=== PATIENT | male | born 1945 | race Caucasian/White ===

== ENCOUNTER → 2019-07-07 14:12 | Outpatient (CLI) | payer MEDICARE, OTHER, SELFPAY ==
--- NOTE | ~2019-07-07 | CT_ITS ---
EXAMINATION: CT brain wo con DATE: 07/07/2019 14:53 INDICATION: Amnesia TECHNIQUE: Computed tomography (CT) of the head was performed without intravenous contrast. The mA wa s adjusted according to patient size. Iterative reconstruction technique was employed. Exam dose: 59 9.57 mGy-cm total exam DLP. COMPARISON: None FINDINGS: Vertebral and bilateral carotid siphon internal carotid artery calcifications are noted. There is nonspecific diminished attenuation of the cerebral white matter, likely due to chronic small vessel ischemic changes. Minimal benign basal ganglia calcification. No intracranial mass lesion or hemorrhage or cerebrovascular accident is evident. No midline shift or mass effect. There is moderate cerebral and cerebellar atrophy. No subdural or epidural hematoma. Included paranasal sinuses and mastoid air cells are normally developed and aerated. No fracture or bone destruction of the cranial vault. IMPRESSION: Cerebral atherosclerosis and chronic small vessel ischemic changes of the cerebral white matter Cerebral and cerebellar atrophy No acute intracranial finding Reviewed, dictated and finalized at [facility]. Reviewed, dictated and finalized at location B.
--- NOTE | ~2019-07-07 | CT_ITS ---
EXAMINATION: CT chest wo con DATE: 07/07/2019 14:53 INDICATION: Shortness of breath, suspect exposure to asbestos TECHNIQUE: Computed tomography (CT) of the chest was performed without intravenous contrast. The dose -length product (DLP) was 166.03 mGy-cm. Automated exposure control and iterative reconstruction tech I.Predictus were employed. COMPARISON: None FINDINGS: No calcified pleural plaques are identified, which are the typical manifestation of asbesto s exposure. There are 3 mm nodules of the right middle lobe and left upper lobe. The lungs are free o f acute opacities. There is no pleural effusion or pneumothorax. No pathologically enlarged thoracic lymph nodes are identified. The heart size is normal. There is moderate thoracic spondylosis. Punctat e calcifications in an otherwise normal spleen likely represent healed granulomatous disease. IMPRESSION: 1. No definite CT findings of as best as exposure. 2. Pulmonary nodules measuring up to 3 mm, likely old granulomatous disease. If the patient has no ri sk factors for malignancy, no further follow up is required. If there are risk factors for malignanc y (i.e., history of smoking, asbestos or radiation exposure), consider followup CT in 12 months. Reviewed, dictated and finalized at location A. IMPRESSION: 1. No definite CT findings of as best as exposure. 2. Pulmonary nodules measuring up to 3 mm, likely old granulomatous disease. If the patient has no risk factors for malignancy, no further follow up is requir ed. If there are risk factors for malignancy (i.e., history of smoking, asbest os or radiation exposure), consider followup CT in 12 months.
== END ==
PROVIDERS: PCP Internal Medicine; Visit Provider Internal Medicine
DX: R41.3 Other amnesia (principal); R91.8 Other nonspecific abnormal finding of lung field; I67.2 Cerebral atherosclerosis; G31.9 Degenerative disease of nervous system, unspecified; Z77.090 Contact with and (suspected) exposure to asbestos
CPT/HCPCS: 70450; 71250

== ENCOUNTER 2019-09-25 15:01 | Outpatient (CLI) | payer MEDICARE, OTHER, SELFPAY ==
--- NOTE | ~2019-09-25 | CT_ITS ---
EXAMINATION: CT soft tissue neck w con EXAM DATE: 09/25/2019 16:00 INDICATION: Left neck mass for 2-3 months. History of bladder cancer. Some TECHNIQUE: Spiral CT of the neck was performed following intravenous injection of 75 mL Omnipaque 350 . Axial, coronal and sagittal images were reviewed. The dose-length product (DLP) for this examinat ion was 31.31 mGy-cm. The exposure was tailored according to patient size (auto mA exposure control) , and iterative reconstruction (ASIR) was used as additional dose reduction technique. There is no p rior study for comparison. FINDINGS: There is abnormal appearance to the left tonsil, mass effect suspicious for malignancy. Reg ion measures 2.1 x 2.8 cm with involvement of the left fossa of Rosenmuller. There is peripherally en hancing mass just below the left mandibular angle, measuring approximately 2 x 3 cm, with poorly defi navi fat planes between it and the left submandibular gland and sternocleidomastoid muscle. Location s uggests most likely a pathologically enlarged left internal jugular chain lymph node. The thyroid gland is unremarkable. The submandibular and parotid glands are symmetric. The super ior mediastinum is unremarkable. The airway is unremarkable. Parapharyngeal and pre-glottic fat p lanes are preserved. There is bilateral carotid bulb arterial sclerosis with approximately 60% sten osis suspected. Less left carotid arterial sclerosis without stenosis. The orbits are unremarkable. Visualized sinuses and mastoid air cells are well aerated. There is advanced disc disease at C5-6 , 6-7, T2-3 and T3-4. There are no osteoblastic or osteolytic lesions identified. IMPRESSION: Necrotic left tonsillar mass and pathologically enlarged left internal jugular chain lymp h node. Could be oropharyngeal squamous cell cancer, metastatic disease. Lymphoma less likely. The phone number associated with this case was for the office of Dr. Cavazos. That office is presently closed. I left message for them to review this report and provided my phone number in case of any qu estions. Reviewed, dictated and finalized at location A. IMPRESSION: Necrotic left tonsillar mass and pathologically enlarged left inter nal jugular chain lymph node. Could be oropharyngeal squamous cell cancer, meta static disease. Lymphoma less likely. The phone number associated with this case was for the office of Dr. Cavazos. Th at office is presently closed. I left message for them to review this report an d provided my phone number in case of any questions.
[2019-09-25 15:45] LABS: Estimated Glomerular Filt Rate 50
== END 2019-09-25 15:02 | disposition home or self-care (01) ==
PROVIDERS: PCP Internal Medicine; Referring Provider Otolaryngology
DX: R22.1 Localized swelling, mass and lump, neck (principal); R59.9 Enlarged lymph nodes, unspecified
CPT/HCPCS: 36415; 70491; Q9967

== ENCOUNTER 2019-12-29 07:34 | Emergency (ER) | payer MEDICARE, OTHER, SELFPAY ==
[2019-12-29] VITALS (62 sets, daily range): BP systolic 115–193; BP diastolic 54–89; PULSE 58–82; RESP 17–34; TEMP 36.4; O2SAT 91–100
--- NOTE | ~2019-12-29 | CT_ITS ---
EXAMINATION: CT cervical spine wo con DATE: 12/29/2019 08:52 INDICATION: Neck pain post fall TECHNIQUE: Computed tomography (CT) of the cervical spine was performed without intravenous contrast. Automated exposure control and iterative reconstruction technique were employed. The dose-length pro duct was 344.66 mGy-cm. COMPARISON: Neck CT dated 09/25/2019 FINDINGS: 2 mm anterolisthesis C7 on T1. Vertebral body heights are normal. No fracture. Severe disc height los s with endplate remodeling at C5-C6. Moderate disc height loss at C4-C5 and C6-C7. Mild disc height l oss at C3-C4 and C7-T1. Again seen is a mass situated between the carotid bifurcation and the deep an terior margin of the sternocleidomastoid muscle, the margins of which are difficult to distinguish on the current noncontrast study which measures approximately 1.7 x 2.4 cm which is similar in size to the prior study. Minimal biapical pleural-parenchymal scarring. Partially visualized right internal j ugular central venous catheter. The following disc levels are specifically discussed: C2-C3: Disc is bulging. There is mild right and minimal left uncovertebral joint osteoarthritis. Ther e is mild right and mild to moderate left facet joint osteoarthritis. There is no neural foraminal st enosis. There is mild central canal stenosis. C3-C4: Disc is bulging. There is mild left and moderate right uncovertebral joint osteoarthritis. The re is moderate left and severe right facet joint osteoarthritis. There is mild left and mild to moder ate right neural foraminal stenosis. There is mild central canal stenosis. C4-C5: Disc is bulging. There is a right and severe left uncovertebral joint osteoarthritis. There is mild right and severe left facet joint osteoarthritis. There is mild right and moderate left neural foraminal stenosis. There is mild central canal stenosis. C5-C6: Posterior disc osteophyte complex. There is severe bilateral uncovertebral joint osteoarthriti s. There is mild left and moderate right facet joint osteoarthritis. There is mild left and moderate right neural foraminal stenosis. There is mild to moderate central canal stenosis. C6-C7: Disc is bulging. There is moderate right and severe left uncovertebral joint osteoarthritis. T here is mild bilateral facet joint osteoarthritis. There is mild right and moderate left neural ag inal stenosis. There is mild central canal stenosis. C7-T1: Disc is bulging. There is minimal bilateral uncovertebral joint osteoarthritis. There is sever e bilateral facet joint osteoarthritis. There is mild bilateral neural foraminal stenosis. There is n o central canal stenosis. IMPRESSION: 1. Severe cervical spondylosis. No acute osseous abnormality. 2. No definitive interval change in an approximately 1.7 x 2.4 cm mass between the carotid bifurcatio n and the sternocleidomastoid muscle, likely an enlarged lymph node which could be reactive, metastat ic or lymphoma. Correlate with intervening clinical history. Reviewed, dictated and finalized at location A. IMPRESSION: 1. Severe cervical spondylosis. No acute osseous abnormality. 2. No definitive interval change in an approximately 1.7 x 2.4 cm mass between the carotid bifurcation and the sternocleidomastoid muscle, likely an enlarged lymph node which could be reactive, metastatic or lymphoma. Correlate with inte rvening clinical history.
--- NOTE | ~2019-12-29 | CT_ITS ---
EXAMINATION: CT brain wo con DATE: 12/29/2019 08:52 INDICATION: Syncopal episode. Fall. TECHNIQUE: Computed tomography (CT) of the head was performed without intravenous contrast. Sagittal and coronal reconstructions were performed. The mA was adjusted according to patient size. Iterative reconstruction technique was employed. The dose-length product was 605.33 mGy-cm. COMPARISON: head CT dated 07/07/2019 FINDINGS: No fracture. No acute intracranial hemorrhage, acute infarction or abnormal extra axial fluid collect ion. There is mild scattered white matter hypoattenuation consistent with chronic small vessel ischem ic disease. Ventricles are normal and symmetric. No mass/mass effect. The orbits, paranasal sinuses and mastoid air cells are normal. Intracranial calcified cerebral atherosclerosis is noted. IMPRESSION: 1. No fracture or acute intracranial process. 2. Mild scattered white matter hypoattenuation consistent with chronic small vessel ischemic disease. Reviewed, dictated and finalized at location A. IMPRESSION: 1. No fracture or acute intracranial process. 2. Mild scattered white matter hypoattenuation consistent with chronic small ve ssel ischemic disease.
--- NOTE | ~2019-12-29 | XR_ITS ---
EXAMINATION: XR chest 1V portable 12/29/2019 08:40 INDICATION: Weakness PROCEDURE: AP portable chest COMPARISON: No prior studies for comparison. FINDINGS: The lungs are clear. There is a central catheter tip in the SVC. The cardiomediastinal silh ouette is within normal limits. There are no pleural effusions. There is no pneumothorax suspected. IMPRESSION: 1: NO ACUTE CARDIOPULMONARY DISEASE. Reviewed, dictated and finalized at location A.
--- NOTE | ~2019-12-29 | XR_ITS ---
EXAMINATION: XR ankle RT min 3V INDICATION: Right ankle pain, initial encounter TECHNIQUE: Four views of the left ankle are obtained. COMPARISON: None available FINDINGS: There is an acute, traumatic, closed, oblique fracture of the distal fibula which extends t o the level of the tibial plafond. There is a transverse fracture at the tip of the medial malleolus. Soft tissue swelling surrounds the ankle. No additional acute osseous abnormality is identified. IMPRESSION: 1. Oblique fracture of the distal fibula extending to the level of the tibial plafond. 2. Avulsion fracture of the medial malleolus. Reviewed, dictated and finalized at location B. IMPRESSION: 1. Oblique fracture of the distal fibula extending to the level of the tibial p cipriano. 2. Avulsion fracture of the medial malleolus.
--- NOTE | 2019-12-29 07:49 | ECG_ITS ---
Measurements Intervals [place] Rate: 67 P: 76 NE: 316 QRS: -40 QRSD: 116 T: 88 QT: 435 QTc: 460 Interpretive Statements SINUS RHYTHM WITH FIRST DEGREE AV BLOCK VENTRICULAR BIGEMINY LEFT AXIS DEVIATION INCOMPLETE RIGHT BUNDLE BRANCH BLOCK CANNOT RULE OUT SEPTAL INFARCT, AGE INDETERMINATE ST-T WAVE ABNORMALITY IN HIGH LATERAL LEADS- CONSIDER ISCHEMIA BASELINE ARTIFACT- I, II, III, AVR, AVF ABNORMAL ECG Electronically Signed On 12-29-2019 8:21:16 CDT by Francois Campo D.O.
--- NOTE | 2019-12-29 08:09 | PC.NURSE ---
per pts pt fell backwards this am striking his head on the ground. denies loc. pt now c/o some neck pain. denies use of blood thinners. states takes asa daily. states has history of throat and tongue ca. has chemo every 2 weeks and radiation daily.
[2019-12-29 08:22] LABS: Alveolar/Arterial O2 Gradient 25.8 mmHg; Base Excess ABG -0.4 mEq/l (+/-2.0); Carboxyhemoglobin 0.5 % THb (0-2.0); Device ROOM AIR; Fractional Inspired Oxygen 21 %; HCO3 ABG 21.6 mEq/l (22.0-26.0); Methemoglobin ABG 0.1 %THb (0-1.5); Oxygen Content ABG 18.4 %vol (16.0-22.0); Oxygen Saturation ABG 97.6 % (95.0-100.0); Oxyhemoglobin 96.4 % THb (90.0-100.0); PCO2 ABG 28.3 mmHg (35.0-45.0); PO2 FiO2 Ratio Arterial Blood 4.29 %; Site Drawn LEFT BRACHIAL; Total Hemoglobin 13.5 g/dL (12.0-18.0)
--- NOTE | 2019-12-29 08:28 | ED.SYNCOPE ---
HPI - Syncope General Chief Complaint: Syncope Stated Complaint: FALL/WEAKNESS Time Seen by Provider: 12/29/19 08:16 Source: patient and family Mode of arrival: EMS History of Present Illness HPI narrative: This patient is a 74 year old male with throat CA, DM, CAD s/p stents who presents for evaluation of syncopal episode. Patient states he was going to the restroom, and then he woke up on the floor. He does not know how he got on the floor. He states he woke up diaphoretic and nauseous. His states he hit the back of his head hard. PAtient complains or right side neck pain. He denies focal extremity weakness. HE denies chest pain or sob. He also denies rib pain . He takes aspirin 325 mg Patient is currently receiving chemotherapy for throat cancer at [facility]. His last chemo was on Saturday. complaint: loss of consciousness Related Data Home Medications Medication Instructions Recorded Confirmed alpha lipoic acid 600 mg capsule 600 mg PO ONCE 05/04/19 11/04/19 aspirin 325 mg tablet 325 mg PO DAILY 05/04/19 11/04/19 mecobalamin (vitamin B12) 1,000 1,000 mcg SUBLINGUAL DAILY 05/04/19 11/04/19 mcg disintegrating tablet,sublingual omega-3 fatty acids 1,000 mg 1,000 mg PO BID 09/07/19 11/04/19 capsule Allergies Allergy/AdvReac Type Severity Reaction Status Date / Time atorvastatin AdvReac Intermediate Other Verified 12/29/19 07:41 isosorbide AdvReac Intermediate Unknown Verified 12/29/19 07:41 Review of Systems Review of Systems: All systems reviewed & are unremarkable except as noted in HPI and below Constitutional: Constitutional: Denies chills and Denies fever(s) Cardiovascular: Cardiovascular: Denies chest pain Respiratory: Respiratory: Denies cough and Denies dyspnea Gastrointestinal: Gastrointestinal: Denies abdominal pain, Denies diarrhea, Reports nausea and Denies vomiting Neurologic: Denies vertigo, Denies dizziness, Denies headache(s) and Denies numbness PMFSH Past Medical History Medical History Abdominal bloating Abnormal finding of blood chemistry Asbestos exposure ASHD (arteriosclerotic heart disease) >4 METs BMI 26.0-26.9,adult Chronic fatigue Chronic sore throat Colon cancer screening Diabetes mellitus type 2, insulin dependent Dysphagia Elevated PSA Encounter for Medicare annual wellness exam Encounter for routine adult health examination without abnormal findings Hearing loss Hyperlipidemia Hypersomnolence Inguinal hernia Memory impairment On fci drug therapy Peripheral neuropathy PVD (peripheral vascular disease) Squamous cell carcinoma of head and neck Thyroid nodule Surgical History Surgical History History of coronary artery stent placement x6, last one in 2017 Social History Social History Smoking status: Never smoker Second hand tobacco smoke exposure: No Alcohol intake: current Gender identity (if verbalized by the patient): Male Exam Const: General: alert and ill appearing Orientation/consciousness: patient oriented x3 HENMT: Head: normocephalic and atraumatic Mouth: Yes moist mucous membranes, No trismus and No restricted motion Throat: posterior oropharynx abnormal Eyes: Pupils: Equal, round and reactive pupils present EOM: EOMs intact bilaterally Chest: Chest palpation & inspection: normal inspection of the chest Resp: Effort & Inspection: normal respiratory effort and no retractions Auscultation: clear to auscultation bilaterally Cardio: Rate: regular rate Rhythm: regular rhythm Heart sounds: no murmurs GI: GI Palp: Yes Soft to palpation, No Tenderness to palpation present (GI) and No Guarding due to palpation present (GI) Auscultation: normal bowel sounds Skin: General skin exam: normal color Rashes: no rashes Neuro: General: fanta
[2019-12-29 08:29] LABS: Basophils Percent Auto 0.3 % (0.2-1.2); Eosinophils Absolute Auto 0.1 K/mm3 (0-0.3); Eosinophils Percent Auto 2.2 % (0-4.4); Hematocrit 38.3 % (42.0-52.0); Immature Granulocyte Absolute 0.01 K/mm3 (0.00-0.031); Immature Granulocyte Percent A 0.3 % (0-0.5); Lymphocytes Absolute Auto 0.37 K/mm3 (0.9-3.2); Lymphocytes Percent Auto 11.7 % (18.3-44.2); Mean Corpuscular HGB Conc 33.9 g/dl (32-36); Mean Corpuscular Hemoglobin 29.8 pg (26-34); Mean Corpuscular Volume 87.8 fl (80-100); Mean Platelet Volume 9.5 fl (7.4-10.4); Monocytes Absolute Auto 0.4 K/mm3 (0.1-0.6); Monocytes Percent Auto 12.4 % (2.6-8.5); Neutrophils Absolute Auto 2.3 K/mm3 (1.3-6.7); Neutrophils Percent Auto 73.1 % (45.5-73.1); Platelet Count Result 151 k/mm3 (150-375); Red Blood Count 4.36 M/mm3 (4.6-6.20); Red Cell Distribution Width 12.8 % (11.5-14.5); White Blood Count 3.2 K/mm3 (4.5-10.0)
[2019-12-29 08:39] LABS: Prothrombin Time 12.6 Seconds (11.1-14.7)
[2019-12-29 08:40] LABS: Lactic Acid Reflex 2.2 mmol/L (0.7-2.1); Partial Thromboplastin Time 23.3 SECONDS (22.3-36.8)
[2019-12-29] MEDS: LACTATED RINGERS 1,000 ML 999 ML IV CONT ×2 (08:41→09:59)
[2019-12-29] MEDS: ONDANSETRON INJ 4 MG/2 ML VIAL IV PUSH (08:41)
[2019-12-29 08:42] LABS: Alanine Aminotransferase 20 U/L (4-50); Albumin Level 3.9 g/dL (3.5-5.1); Alkaline Phosphatase 85 U/L (38-126); Anion Gap 11 mmol/L (8-16); Aspartate Amino Transferase 22 U/L (17-59); Bilirubin,Total 0.5 mg/dL (0.2-1.3); Blood Urea Nitrogen 28 mg/dL (9-20); Calcium 9.2 mg/dL (8.4-10.2); Carbon Dioxide 22 mmol/L (22-30); Chloride 102 mmol/L (98-107); Estimated CRCL calculation 54 ml/min; Estimated Glomerular Filt Rate 59; Glucose 180 mg/dL (75-110); Magnesium 2.1 mg/dL (1.6-2.3); Potassium 4.3 mmol/L (3.4-5.0); Sodium 135 mmol/L (137-145)
[2019-12-29 10:46] LABS: Add Urine Microscopic? YES; Appearance Urine Clear (Clear); Bilirubin Urine Negative (Negative); Blood Urine Negative (Negative); Color Urine Straw (Yellow); Glucose Urine UA 3+ mg/dL (Negative); Ketones Urine 1+ mg/dL (Negative); Leukocyte Esterase Ur Negative LEU/UL (Negative); Mucus Urine Rare /lpf; Nitrate Urine Negative (Negative); Protein Urine Negative (Negative); RBC Urine 0-2 /hpf (0-2); Specific Grav Ur 1.025 (1.001-1.035); Urobilinogen Urine Negative mg/dL (<2.0); WBC Urine 0-3 /hpf
--- NOTE | 2019-12-29 11:17 | PC.NURSE ---
report given to yesika jones by eduardo
[2019-12-29 11:26] LABS: Reflex Lactic Acid Yes or No Add Lactic
--- NOTE | 2019-12-29 12:02 | PC.NURSE ---
Per ERP Dr. Brantley Redraw lactic not needed.
--- NOTE | 2019-12-29 13:39 | PC.NURSE ---
erp dr paniagua at bedside for assessment of splint application .
--- NOTE | 2019-12-29 14:35 | PC.NURSE ---
crutches brought up from central supply. pt educated on crutches and road tested. ERP Dr. Brantley notified.
== END 2019-12-29 15:16 | disposition home or self-care (01) ==
PROVIDERS: Emergency Provider General Practice; PCP Internal Medicine
DX: R55 Syncope and collapse (principal); S82.831A Other fracture of upper and lower end of right fibula, initial encounter for closed fracture; M47.812 Spondylosis without myelopathy or radiculopathy, cervical region; R53.82 Chronic fatigue, unspecified; E11.9 Type 2 diabetes mellitus without complications; Z79.4 Long term (current) use of insulin; E78.5 Hyperlipidemia, unspecified; W19.XXXA Unspecified fall, initial encounter
CPT/HCPCS: 29515; 36415; 36600; 70450; 71045; 72125; 73610; 80053; 81001; 82375; 82805; 83050; 83605; 83735; 85025; 85610; 85730; 93005; 96361; 96374; 99284; J2405; J7120

== ENCOUNTER → 2020-08-05 12:57 | Outpatient (CLI) | payer MEDICARE, OTHER, SELFPAY ==
--- NOTE | ~2020-08-05 | CT_ITS ---
EXAMINATION: CT abdomen pelvis wo/w con DATE: 08/05/2020 13:45 INDICATION: Gross hematuria TECHNIQUE: Computed tomography (CT) of the abdomen and pelvis was performed without and subsequently with 130 cc Omnipaque 350 intravenous contrast. Automated exposure control and iterative reconstructi on technique were employed. Exam dose: 873.39 mGy-cm total exam DLP. COMPARISON: 04/23/2019 CT abdomen pelvis with IV contrast material FINDINGS: The lung bases are clear of infiltrate or consolidation. Normal heart size. No pericardial or pleural effusion. The gallbladder is present. No bile duct or pancreatic duct dilatation. Calcified hepatic and splenic granulomas, consistent with old granulomatous disease. No hepatic, sple diana, pancreatic, adrenal or right renal space-occupying mass lesion is evident. No urinary tract calc ulus or hydroureteronephrosis. Posterolateral mid left renal 6 mm cortical cyst. 1 cm lower pole left renal cyst. Approximately 2.2 cm hypoenhancing anterior lower pole left renal mass lesion with central lucency lang ggesting central necrosis, suspicious for left lower pole hypernephroma. Differential diagnosis inclu misty oncocytoma. Prominent prostatomegaly. There is moderate diffuse bladder wall thickening likely secondary to bladd er outlet obstruction as result of the prostatic enlargement. There is atherosclerotic calcification the abdominal aorta and branches but no abdominal aortic aneur ysm. No intraperitoneal or retroperitoneal or pelvic mass lesion or adenopathy or ascites. Normal appendix. Mild diverticulosis of the sigmoid colon; no CT evidence of diverticulitis. No bowel obstruction, bow el wall thickening, pneumatosis or intraperitoneal free air. Bilateral vas deferens calcifications, suggesting diabetes. Small fat-containing left inguinal hernia. Degenerative changes of the lower thoracic and lumbar spine including severe degenerative disc diseas e at L3-4, L4-5, L5-S1. No suspicious osteolytic or osteoblastic lesions are noted. IMPRESSION: 2.2 cm likely hypernephroma of the lower pole of the left kidney; differential diagnosis includes oncocytoma 6 mm and 1 cm left renal cysts Bilateral vas deferens calcifications, suggesting diabetes Prominent prostatomegaly with moderate bladder wall thickening suggesting bladder outlet obstruction Mild diverticulosis of the sigmoid colon; no CT evidence of diverticulitis Reviewed, dictated and finalized at Location A. Reviewed, dictated and finalized at location A. IMPRESSION: 2.2 cm likely hypernephroma of the lower pole of the left kidney; differential diagnosis includes oncocytoma 6 mm and 1 cm left renal cysts Bilateral vas deferens calcifications, suggesting diabetes Prominent prostatomegaly with moderate bladder wall thickening suggesting bladd er outlet obstruction Mild diverticulosis of the sigmoid colon; no CT evidence of diverticulitis
[2020-08-05 13:22] LABS: Estimated Glomerular Filt Rate > 60
== END ==
PROVIDERS: PCP Internal Medicine; Visit Provider Urology
DX: R31.0 Gross hematuria (principal); N28.1 Cyst of kidney, acquired; N50.89 Other specified disorders of the male genital organs; N40.0 Benign prostatic hyperplasia without lower urinary tract symptoms; K57.30 Diverticulosis of large intestine without perforation or abscess without bleeding
CPT/HCPCS: 74178; Q9967

== ENCOUNTER → 2020-11-01 11:31 | Outpatient (CLI) | payer MEDICARE, OTHER, SELFPAY ==
--- NOTE | ~2020-11-01 | XR_ITS ---
EXAMINATION: XR mandible min 4V EXAM DATE: 11/01/2020 13:15 INDICATION: R68.84 - Jaw pain, left side. States tonsil cancer history. TECHNIQUE: Mandible frontal, frontal with angulation, bilateral lateral with tilt projections There is no prior study for comparison. FINDINGS: Mandibular condyles appears to be normally positioned. There are no acute fractures or disl ocations identified. There is no subcutaneous gas. The soft tissue is unremarkable. There are no radiopaque foreign bodies. There are no bony erosions identified. IMPRESSION: 1. Unremarkable XR mandible min 4V exam. Reviewed, dictated and finalized at location A.
== END ==
PROVIDERS: PCP Internal Medicine; Visit Provider Internal Medicine
DX: R68.84 Jaw pain (principal)
CPT/HCPCS: 70110

== ENCOUNTER → 2021-08-22 09:26 | Outpatient (CLI) | payer MEDICARE, OTHER, SELFPAY ==
[2021-08-22 13:11] LABS: SARS-CoV-2 RNA PCR Negative
== END ==
PROVIDERS: PCP Internal Medicine; Visit Provider Internal Medicine
DX: R05.9 Cough, unspecified (principal); Z20.822 Contact with and (suspected) exposure to COVID-19
CPT/HCPCS: C9803; U0003; U0005

== ENCOUNTER 2022-05-04 10:57 | Outpatient (CLI) | payer MEDICARE, SELFPAY | END 2022-05-04 10:58 | disposition home or self-care (01) | LOC: ANHAUDASC 10:58 | PROVIDERS: PCP Internal Medicine; Visit Provider Internal Medicine | DX: H90.3 Sensorineural hearing loss, bilateral (principal) | CPT/HCPCS: 92557; 92567 ==

== ENCOUNTER → 2022-08-29 12:43 | Outpatient (CLI) | payer MEDICARE, OTHER, SELFPAY ==
--- NOTE | ~2022-08-29 | US_ITS ---
EXAMINATION: US carotid duplex BI DATE: 08/29/2022 13:11 INDICATION: Atherosclerosis. TECHNIQUE: Grayscale, color Doppler, and pulsed Doppler images of the cervical carotid arteries were obtained. The degree of vessel stenosis is placed in one of the following categories: normal, <50%, 5 0-69%, >=70% but less than near-occlusion, near-occlusion, or total occlusion. Note that percent sten osis relative to normal distal artery lumen diameter is indirectly measured from velocity measurement s as described by Moody, et al. Radiology 2003; 229:340-346. Notes: Normal: Peak systolic velocity <125 centimeters/sec and no plaque <50%. Peak systolic velocity <125 ( EDV <40; ICA/CCA PSV ratio <2.0; used these factors only a tandem lesions or low cardiac output or co ntralateral disease) 50-69 %: PSV 125-230 (EDV 40-100; ratio 2-4) >= 70% but less than near occlusion: PSV greater than 230 (EDV > 100; ratio> 4.0) Near Occlusion: PSV that is variable; markedly narrowed lumen Occlusion: Absent flow on color/spectral Doppler and no lumen on mclean scale. COMPARISON: None. FINDINGS: RIGHT: The right common carotid artery (CCA) peak systolic velocity (PSV) is 106 cm/s. The right internal ca rotid artery (ICA) PSV is 229 cm/s. The right ICA end-diastolic velocity (EDV) is 58 cm/s. The right ICA/CCA PSV ratio is 2.2. The external carotid artery (ECA) PSV is 173 cm/s. There is antegrade flow in the right vertebral artery. LEFT: The left CCA PSV is 137 cm/s. The left ICA PSV is 111 cm/s. The left ICA EDV is 29 cm/s. The left ICA /CCA PSV ratio is 0.8. The ECA PSV is 138 cm/s. There is antegrade flow in the left vertebral artery . IMPRESSION: 1. Less than 50% stenosis in the right internal carotid artery by sonographic criteria. 2. 50-69% stenosis in the left internal carotid artery by sonographic criteria. Reviewed, dictated and finalized at location B. IMPRESSION: 1. Less than 50% stenosis in the right internal carotid artery by sonographic c riteria. 2. 50-69% stenosis in the left internal carotid artery by sonographic criteria.
== END ==
PROVIDERS: PCP Internal Medicine; Visit Provider Internal Medicine
DX: Z09 Encounter for follow-up examination after completed treatment for conditions other than malignant neoplasm (principal); I25.10 Atherosclerotic heart disease of native coronary artery without angina pectoris; I65.23 Occlusion and stenosis of bilateral carotid arteries
CPT/HCPCS: 93880

== ENCOUNTER 2024-02-11 23:50 | Emergency (ER) | payer MEDICARE, SELFPAY ==
--- NOTE | ~2024-02-11 | CT_ITS ---
EXAMINATION: CTA chest abdomen pelvis DATE: 02/12/2024 00:54 INDICATION: Chest pain. TECHNIQUE: Computed tomographic angiography (CTA) of the chest, abdomen, and pelvis was performed wit h 100 mL Omnipaque-350 intravenous contrast. Automated exposure control and iterative reconstruction technique were employed. The dose-length product was 649.02 mGy-cm. Maximum intensity projection 3D-r econstructions of the aorta and other arteries were constructed by the technologist on a separate wor kstation. COMPARISON: CT abdomen and pelvis 08/05/2020 FINDINGS: CHEST CTA: The lungs demonstrate minimal atelectasis. No pleural effusion. The heart size is normal. There are c oronary artery calcifications. No pericardial effusion. Aortic atherosclerosis is noted. No aneurysm. There is severe cervical and thoracic spondylosis. There is mild chronic anterior wedging of multipl e vertebral bodies. ABDOMEN AND PELVIS CTA: The liver, gallbladder, pancreas, and adrenal glands are normal. Calcifications in the spleen are con sistent with old granulomatous disease. There is cortical thinning of the kidneys. There is a 3.3 cm enhancing mass in left kidney that measured 2.2 cm on 08/05/2020. The prostate is moderately enlarged. There is a left inguinal hernia containing nonobstructed small bowel. There is diverticulosis of the colon without evidence of diverticulitis. There are no dilated loops of bowel. The appendix is martin l. There are no pathologically enlarged lymph nodes. There is no free intraperitoneal fluid. There is calcified atherosclerosis of the aorta and many of the other arteries. There is moderate stenosis of left common femoral artery. There is severe lumbar spondylosis. IMPRESSION: 1. 3.3 cm enhancing mass in left kidney that measured 2.2 cm on 08/05/2020, consistent with renal cell carcinoma. Reviewed, dictated and finalized at location A. IMPRESSION: 1. 3.3 cm enhancing mass in left kidney that measured 2.2 cm on 08/05/2020, cons istent with renal cell carcinoma.
--- NOTE | ~2024-02-11 | XR_ITS ---
EXAMINATION: XR chest 1V portable DATE: 02/12/2024 00:14 INDICATION: Chest and right upper back pain TECHNIQUE: frontal view of the chest was obtained. COMPARISON: Chest radiograph dated 12/29/19 FINDINGS: The lungs remain clear with no focal airspace opacities, pulmonary edema, pleural effusion or pneumot horax. The cardiomediastinal silhouette is normal. Visualized bones and soft tissues are unremarkable . IMPRESSION: 1. No acute cardiopulmonary disease. Reviewed, dictated and finalized at location A.
--- NOTE | 2024-02-11 23:51 | ECG_ITS ---
Test Date: 2024-02-11 23:56:07 Measurements Intervals [place] Rate: 78 P: 0 HI: 0 QRS: -38 QRSD: 113 T: 97 QT: 357 QTc: 407 Interpretive Statements ATRIAL FLUTTER WITH VARIABLE VENTRICULAR RESPONSE LEFT AXIS DEVIATION [QRS AXIS < -30] INCOMPLETE RIGHT BUNDLE BRANCH BLOCK [90+ ms QRS DURATION, TERMINAL R IN V1/V2, 40+ ms S IN I/aVL/V4/V5/V6] PROBABLE SEPTAL MYOCARDIAL INFARCTION , OF INDETERMINATE AGE [35 ms Q WAVE IN V1/V2] MODERATE T-WAVE ABNORMALITY, CONSIDER LATERAL ISCHEMIA [-0.1+ mV T-WAVE IN I/aVL/V5/V6] ABNORMAL ECG No previous ECG available for comparison Electronically Signed On 02-12-2024 10:20:39 CDT by Yasmany Diaz M.D.
[2024-02-11 23:53] VITALS: BP 166/87; PULSE 77; RESP 11; TEMP 36.3; O2SAT 100
[2024-02-11 23:59] VITALS: PULSE 72
[2024-02-12 00:01] VITALS: O2SAT 100
[2024-02-12 00:03] VITALS: BP 157/86; BP 166/87; PULSE 68; PULSE 77; RESP 11; TEMP 36.3; O2SAT 100
--- NOTE | 2024-02-12 00:06 | ED.CHESTPAIN ---
HPI - Chest Pain General Chief Complaint: Chest Pain Stated Complaint: chest pain Time Seen by Provider: 02/11/24 23:53 History of Present Illness HPI narrative: Patient is a 78-year-old male who presents to the emergency department this evening complaining of right-sided upper back pain. Patient states that the pain started a few days ago and has not improved despite him taking ibuprofen. He states that the pain sometimes does radiate to his right arm. Patient admits to history of cardiovascular disease and states that he has had sick stents placed. He is currently denying any chest pain or shortness of breath, denies any nausea vomiting or abdominal pain and denies any dysuria or hematuria. Patient also denies any recent falls or trauma and denies any neck pain. No additional symptoms or concerns at this time. Related Data Home Medications Medication Instructions Recorded Confirmed mecobalamin (vitamin B12) 1,000 1,000 mcg sublingual DAILY 05/04/19 01/08/24 mcg disintegrating tablet,sublingual omega-3 fatty acids 1,000 mg 1,000 mg PO BID 09/07/19 01/08/24 capsule (Fish Oil Concentrate) aspirin 325 mg tablet 325 mg PO DAILY 10/22/22 01/08/24 ibuprofen 200 mg capsule 200 mg PO BID PRN 05/23/23 01/08/24 cholecalciferol (vitamin D3) 50 4,000 unit PO DAILY 01/31/24 mcg (2,000 unit) capsule Allergies Allergy/AdvReac Type Severity Reaction Status Date / Time atorvastatin AdvReac Intermediate Other Verified 02/11/24 23:59 isosorbide AdvReac Intermediate Unknown Verified 02/11/24 23:59 Review of Systems Review of Systems: All systems are reviewed and are negative unless stated otherwise in the HPI. [facility] Past Medical History Medical History Abdominal bloating Abnormal finding of blood chemistry Ankle fracture, right Anxiety and depression Asbestos exposure ASHD (arteriosclerotic heart disease) >4 METs Bilateral cataracts BMI 21.0-21.9, adult BMI 22.0-22.9, adult BMI 23.0-23.9, adult BMI 24.0-24.9, adult BMI 26.0-26.9,adult Borderline abnormal TFTs Chronic fatigue Chronic sore throat CKD (chronic kidney disease), stage II Colon cancer screening Cough COVID-19 vaccine series completed Depression Diabetes mellitus type 2, insulin dependent DJD (degenerative joint disease) Dysphagia Elevated homocysteine Elevated PSA Encounter for Medicare annual wellness exam Encounter for routine adult health examination without abnormal findings Follow up Grief Gross hematuria Hearing loss History of cataract History of head and neck cancer Hx of bladder cancer Hyperlipidemia Hypersomnolence Inguinal hernia Jaw pain alf (current) use of insulin Loss of appetite Mandibular pain Mastodynia of left breast Memory impairment Nocturia 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 Onychomycosis Oral lesion Osteonecrosis of jaw Peripheral neuropathy PTSD (post-traumatic stress disorder) PVD (peripheral vascular disease) Renal mass Squamous cell carcinoma of head and neck Thyroid nodule Vitamin D deficiency Surgical History Surgical History History of coronary artery stent placement x6, last one in 2017 S/P cataract surgery Family History Family History Father Family history of lung disease Mother Family history of malignant neoplasm of gastrointestinal tract Social History Social History Smoking status: Never smoker Second hand tobacco smoke exposure: No Alcohol intake: current Lack of Transportation: No Lack of Food: Never True Current Housing: I Have Housing Concerned About Future Housing: No Difficulty Paying Gas/Electric Bills: No Difficulty Paying for Meds: No Currently Unemployed: No Education: High School Diploma/GED Living arrangements: alone Gender ident
[2024-02-12 00:08] LABS: Basophils Percent Auto 0.6 % (0.2-1.2); Eosinophils Absolute Auto 0.1 K/mm3 (0-0.3); Eosinophils Percent Auto 1.9 % (0-4.4); Hematocrit 43.1 % (42.0-52.0); Hemoglobin 14.5 g/dL (14.0-18.0); Immature Granulocyte Absolute 0.02 K/mm3 (0.00-0.031); Immature Granulocyte Percent A 0.3 % (0-0.5); Lymphocytes Absolute Auto 0.85 K/mm3 (0.9-3.2); Lymphocytes Percent Auto 12.4 % (18.3-44.2); Mean Corpuscular HGB Conc 33.6 g/dl (32-36); Mean Corpuscular Hemoglobin 31.5 pg (26-34); Mean Corpuscular Volume 93.7 fl (80-100); Mean Platelet Volume 10.6 fl (7.4-10.4); Monocytes Percent Auto 15.1 % (2.6-8.5); Neutrophils Absolute Auto 4.8 K/mm3 (1.3-6.7); Neutrophils Percent Auto 69.7 % (45.5-73.1); Platelet Count Result 187 k/mm3 (150-375); Red Cell Distribution Width 13.2 % (11.5-14.5); White Blood Count 6.8 K/mm3 (4.5-10.0)
[2024-02-12 00:18] LABS: INR 0.9; Prothrombin Time 12.6 Seconds (11.1-14.7)
[2024-02-12 00:19] LABS: Alanine Aminotransferase 21 U/L (6-50); Albumin Level 4.7 g/dL (3.5-5.1); Alkaline Phosphatase 91 U/L (38-126); Anion Gap 11 mmol/L (4-12); Aspartate Amino Transferase 29 U/L (17-59); Bilirubin,Total 0.8 mg/dL (0.2-1.3); Blood Urea Nitrogen 31 mg/dL (9-20); Calcium 9.6 mg/dL (8.4-10.2); Carbon Dioxide 22 mmol/L (22-30); Chloride 103 mmol/L (98-107); Estimated CRCL calculation 50 ml/min; Estimated Glomerular Filt Rate 59; Glucose 174 mg/dL (65-110); Lipase 819 U/L (23-300); Partial Thromboplastin Time 27.8 Seconds (22.3-36.8); Potassium 4.2 mmol/L (3.4-5.0); Sodium 136 mmol/L (137-145)
[2024-02-12 00:31] LABS: Troponin I < 0.012 ng/mL (0.000-0.034)
[2024-02-12] MEDS: MORPHINE SULFATE (*CRX) 4 MG/ML INJ 2 MG IV PUSH (01:05)
[2024-02-12] MEDS: ONDANSETRON INJ 4 MG/2 ML VIAL IV PUSH (01:05)
--- NOTE | 2024-02-12 01:06 | PC.NURSE ---
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
[2024-02-12 02:08] VITALS: BP 147/75; PULSE 63; RESP 17; O2SAT 98
[2024-02-12 03:17] LABS: Troponin I < 0.012 ng/mL (0.000-0.034)
[2024-02-12 04:10] VITALS: BP 141/75; PULSE 67; RESP 16; TEMP 36.9; O2SAT 97
[2024-02-12] MEDS: methocarbamoL 750 MG TABLET PO (04:10)
== END 2024-02-12 04:12 | disposition home or self-care (01) ==
PROVIDERS: Emergency Provider Emergency Medicine; PCP Internal Medicine
DX: M54.6 Pain in thoracic spine (principal); I25.10 Atherosclerotic heart disease of native coronary artery without angina pectoris; N18.2 Chronic kidney disease, stage 2 (mild); E11.22 Type 2 diabetes mellitus with diabetic chronic kidney disease; E11.42 Type 2 diabetes mellitus with diabetic polyneuropathy; E11.51 Type 2 diabetes mellitus with diabetic peripheral angiopathy without gangrene; I73.9 Peripheral vascular disease, unspecified; E78.5 Hyperlipidemia, unspecified; E55.9 Vitamin D deficiency, unspecified; M19.90 Unspecified osteoarthritis, unspecified site; Z95.5 Presence of coronary angioplasty implant and graft; Z85.828 Personal history of other malignant neoplasm of skin; Z85.51 Personal history of malignant neoplasm of bladder; Z98.49 Cataract extraction status, unspecified eye; Z85.810 Personal history of malignant neoplasm of tongue; Z85.819 Personal history of malignant neoplasm of unspecified site of lip, oral cavity, and pharynx; Z79.82 Long term (current) use of aspirin; Z79.899 Other long term (current) drug therapy; Z79.84 Long term (current) use of oral hypoglycemic drugs; Z79.4 Long term (current) use of insulin; I48.92 Unspecified atrial flutter; I45.10 Unspecified right bundle-branch block; R94.31 Abnormal electrocardiogram [ECG] [EKG]; N28.89 Other specified disorders of kidney and ureter
CPT/HCPCS: 36415; 71045; 71275; 74174; 80053; 83690; 84484; 85025; 85610; 85730; 93005; 96374; 96375; 99284; A9270; J2270; J2405; Q9967

== ENCOUNTER 2024-02-26 12:26 | Outpatient (CLI) | payer MEDICARE, SELFPAY | END 2024-02-26 12:27 | disposition home or self-care (01) | PROVIDERS: PCP Internal Medicine; Visit Provider Surgery | DX: Z01.818 Encounter for other preprocedural examination (principal); K40.90 Unilateral inguinal hernia, without obstruction or gangrene, not specified as recurrent | CPT/HCPCS: 36415; 86850; 86900; 86901 ==

== ENCOUNTER 2024-03-06 04:35 | Day surgery (SDC) | payer MEDICARE, SELFPAY ==
--- NOTE | 2024-02-21 15:32 | PC.NURSE ---
Report to the Outpatient Waiting Room, entrance under the green pavilion located off [facility], at time _11:30 AM on date 03/06/24 . Planned Procedure Time: _1:30 PM .? Time changes happen often and if your time is changed the preop area will call you the afternoon before. - You and your visitor will be asked to self-screen and do not enter if you have any COVID symptoms. Please call surgeon if you need to reschedule. - A mask is optional within the hospital at this time. Patients may have clear liquids (water, carbonated beverages, clear teas, apple juice) until 3 hours prior to surgery ( 10:30 AM)with a maximum of 20 ounces. - No food from midnight until time of surgery and no smoking - Infants may have breast milk until 4 hours before surgery, formula 6 hours prior to surgery. - Children will be allowed to drink immediately following surgery.? If applicable, please bring a bottle or sippy cup to assist with drinking. Juice, water, soda, and popsicles are readily available.? For infants on formula, please bring formula the day of surgery.? Pacifiers are allowed. Take only the following medications with a SIP of water on the morning of surgery:,____NONE DO NOT STOP ANY OF YOUR OTHER PRESCRIPTION MEDICATIONS PRIOR TO SURGERY EXCEPT THE FOLLOWING Medications to discontinue per physician __DECREASE 325 MG ASPIRIN TO _81 MG ONE WK PRIOR TO SURGERY .HOLD ALL VITAMINS AND SUPPLEMENTS 3 DAY PRE OP Date to take last dose_03/02/24 Please no make-up, nail macedonian, hairspray, perfume, deodorant, or body powder the day of surgery.? No jewelry (including any body piercings) or valuables the day of surgery, leave them at home.? Please take a shower or bath the night before, or the morning of, surgery with an antibacterial soap.? Wear comfortable, loose fitting clothing.? Children are encouraged to wear pajamas. - Jewelry must be removed prior to entering the operating room.? Rings and piercings that are not removed may be cut off. - The hospital will not accept responsibility for valuables.? - Please leave all valuables, including medications, at home the day of surgery. If you are going home after surgery, a licensed driver trainee must drive you home.? - NO public transportation without another adult if you receive anesthesia. - We recommend that an adult stay with you for 24 hours following discharge. - We also recommend that you do not drive, make important decision, drink alcoholic beverages, or take any drugs that were not prescribed by your health care provider for at least 24 hours after your discharge time. For Pediatric surgeries, we recommend two adults accompany the child home. Follow any additional instructions given to you from your surgeon. Telephone instructions given to __PATIENT and asked if any additional questions and then verbalized understanding. Patient advised to call surgeon office or pre surgery nurse liaison [phone] if any additional questions.
[2024-02-21 15:45] VITALS: BMI 23.1
[2024-03-06] VITALS (10 sets, daily range): BP systolic 128–149; BP diastolic 49–87; PULSE 56–90; RESP 12–18; TEMP 36.3–36.6; O2SAT 95–100
[2024-03-06] MEDS: ACETAMINOPHEN 500 MG TABLET 1000 MG PO (11:55)
[2024-03-06] MEDS: LACTATED RINGERS 1,000 ML 30 ML IV CONT ×3 (12:00→17:25)
[2024-03-06] MEDS: KETOROLAC 15 MG/ML VIAL (*BKC) IV PUSH (12:00)
[2024-03-06 13:08] LABS: Glucose Point of Care 95 mg/dl (65-105)
--- NOTE | 2024-03-06 13:58 | PM.IMHP ---
H&P: HPI History of Present Illness Date/Time: 03/06/24 13:58 Chief Complaint: Left inguinal hernia, reducible Narrative: Mr. Traylor returns to the office for recheck of his left inguinal hernia. He was originally evaluated in 09/2023, but due to his scheduled, he wanted to wait until fall of this year before proceeding. He returns now for recheck and to discuss proceeding with scheduling his surgery. He denies changes to the hernia since his last visit. Experiences an occasional associated ache, but no definite pain. He is scheduled at the beginning of January for a stress test per his tax compliance representative. He did see his tax compliance representative and passed preop cardiac evaluation. Review of Systems Review of Systems: The remainder of the review of systems to include constitutional, HEENT, cardiovascular, respiratory, GI, , integumentary, musculoskeletal, endocrine, immunologic, hematologic, psychiatric, and neurologic are all negative except for which is mentioned above in the HPI. [facility] Past Medical History Medical History Abdominal bloating Abnormal finding of blood chemistry Ankle fracture, right Anxiety and depression Asbestos exposure ASHD (arteriosclerotic heart disease) >4 METs Back pain Bilateral cataracts BMI 21.0-21.9, adult BMI 22.0-22.9, adult BMI 23.0-23.9, adult BMI 24.0-24.9, adult BMI 26.0-26.9,adult Borderline abnormal TFTs Carotid stenosis Cervical spondylosis Chronic fatigue Chronic sore throat CKD (chronic kidney disease), stage II Colon cancer screening Cough COVID-19 vaccine series completed Depression Diabetes mellitus type 2, insulin dependent DJD (degenerative joint disease) Dysphagia Elevated homocysteine Elevated PSA Encounter for Medicare annual wellness exam Encounter for routine adult health examination with abnormal findings Encounter for routine adult health examination without abnormal findings Follow up Grief Gross hematuria Hearing loss History of cataract History of head and neck cancer Hospital discharge follow-up Hx of bladder cancer Hyperlipidemia Hypersomnolence Hyperventilation Inguinal hernia 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 Loss of appetite Mandibular pain Mastodynia of left breast Memory impairment Nocturia 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 Onychomycosis Oral lesion Osteonecrosis of jaw Peripheral neuropathy PTSD (post-traumatic stress disorder) PVD (peripheral vascular disease) Renal mass Right shoulder pain Squamous cell carcinoma of head and neck Thoracic spondylosis Thyroid nodule Vitamin D deficiency Surgical History Surgical History History of coronary artery stent placement x6, last one in 2017 S/P cataract surgery Family History Family History Father Family history of lung disease Mother Family history of malignant neoplasm of gastrointestinal tract Social History Social History Smoking status: Never smoker Second hand tobacco smoke exposure: No Alcohol intake: current Alcohol use details: 2-3 BOTTLES PER WK Substance use: current Substance use type: marijuana Last use: 02/09/24 Lack of Transportation: No Lack of Food: Never True Current Housing: I Have Housing Concerned About Future Housing: No Difficulty Paying Gas/Electric Bills: No Difficulty Paying for Meds: No Currently Unemployed: No Education: High School Diploma/GED Living arrangements: alone Gender identity (if verbalized by the patient): Male Spiritual care concerns: No Meds Home Medications and Allergies Home Medications Medication Instructions Recorded Confirmed Type mecobalamin (vitamin B12) 1,000 1,000 mcg sublingual DAILY 05/04/19 03/06/24 History mcg disintegrating tablet,sublingual omega-3 fatty acids 1,000 mg 1,000 mg PO BID 09/07/19 03/06/24 History capsule (Fish Oil Concentrate) OneTouch Ultra2 Meter #1 ea 04/28/20 03/06/24 Rx (blood-glucose meter) folic acid 1 mg tablet 1 mg PO DAILY #90 tabs 08/04/20 03/06/24 Rx blood sugar diagnostic (OneTouch See Rx Instructions .Route 07/14/21 03/06/24 Rx Verio test strips) .COMPLEX #200 ea aspirin 325 mg tablet 325 mg PO DAILY 10/22/22 03/06/24 History insulin glargine 100 unit/mL (3 See Rx Instructions .Route 07/11/23 03/06/24 Rx mL) subcutaneous pen (Basaglar .COMPLEX #15 mL KwikPen U-100 Insulin) tamsulosin 0.4 mg capsule See Rx Instructions .Route 08/20/23 03/06/24 Rx .COMPLEX #180 caps BD Ultra-Fine Mini Pen Needle 31 #100 ea 12/31/23 03/06/24 Rx gauge x 3/16 (pen needle, diabetic) rosuvastatin 5 mg tablet See Rx Instructions .Route 01/22/24 03/06/24 Rx .COMPLEX #90 tabs cholecalciferol (vitamin D3) 50 4,000 unit PO DAILY 01/31/24 03/06/24 History mcg (2,000 unit) capsule ibuprofen 200 mg capsule 400 mg PO BID PRN Pain 02/12/24 03/06/24 History S Alpha -Lipoic acid 300 mg BYMOUTH DAILY 02/21/24 03/06/24 History calcium polycarbophil 625 mg 625 mg PO DAILY 02/21/24 03/06/24 History tablet (FiberCon) gabapentin 300 mg capsule 300 mg PO HS 02/21/24 03/06/24 History empagliflozin 25 mg tablet 25 mg PO DAILY #30 tabs 03/02/24 03/06/24 Rx (Jardiance) metformin 1,000 mg tablet 1,000 mg PO DAILY #30 tabs 03/02/24 03/06/24 Rx Allergies Allergy/AdvReac Type Severity Reaction Status Date / Time atorvastatin AdvReac Intermediate Other Verified 03/06/24 12:33 isosorbide AdvReac Intermediate Unknown Verified 03/06/24 12:33 Vital Signs Vital Signs - 24 hr 03/06/24 11:43 Temperature 36.6 C Pulse Rate 90 Respiratory Rate 18 Blood Pressure 149/87 H Pulse Oximetry 100 Oxygen Delivery Room Air Exam Const: General: comfortable and no acute distress HENMT: Ears: TM's normal bilaterally Face/Nose/Sinus: Normal nares present Mouth: Yes moist mucous membranes Eyes: General: appearance normal, both eyes and all related structures Sclera: sclerae normal Pupils: Equal, round and reactive pupils present EOM: EOMs intact bilaterally Neck: Neck: supple and no JVD Resp: Effort & Inspection: normal respiratory effort Auscultation: clear to auscultation bilaterally Cardio: Rate: regular rate Rhythm: regular rhythm GI: GI Palp: Yes Soft to palpation, No Firmness to palpation present (GI), No Tenderness to palpation present (GI), No Guarding due to palpation present (GI) and No Hernia present : Other: No testicular masses. No right inguinal hernia. Easily reducible large left inguinal hernia without scrotal extension, likely containing bowel. Skin: General skin exam: normal color and no rashes or lesions noted Neuro: General: gait normal Speech: normal speech Motor exam (neuro): 5/5 motor strength present throughout and Motor abnormalites present Sensory Exam: normal sensation Extrem: General: normal to inspection Psych: Mental Status: mental status grossly normal Affect: normal affect Assessment and Plan Assessment and plan (1) Inguinal hernia without obstruction or gangrene: Qualifiers: Laterality: unilateral Recurrence: non-recurrent Qualified Code(s): K40.90 - Unilateral inguinal hernia, without obstruction or gangrene, not specified as recurrent Code(s): K40.90 - Unilateral inguinal hernia, without obstruction or gangrene, not specified as recurrent Status: Acute Assessment and Plan: Patient with large left inguinal hernia is unchanged since his initial evaluation. Will now proceed with scheduling him for robotic assisted laparoscopic left inguinal hernia repair with mesh to be performed in the OR under general anesthesia as an outpatient. The surgery was discussed in detail including description, risks, benefits, the use of mesh, post-operative restrictions, recovery, and expected outcome. Will go ahead and schedule, but before surgery is performed. Patient has seen his tax compliance representative and has passed preop cardiac evaluation clearance. Risks, benefits, indications, and expected outcomes were discussed with the patient and/or family members. Specific risks to include bleeding and possible need for blood transfusion, infection, bile leak, injury to other organs, common bile duct injury, and conversion to open cholecystectomy has been discussed. I have answered all their questions and they agreed to proceed with surgery as outlined above.
--- NOTE | 2024-03-06 14:02 | WPDHPUPDATE1 ---
History and Physical Update Update Date/Time: 03/06/24 14:02 History and Physical has been reviewed, including an updated exam of the patient. There are NO changes in the patient's condition. Risks, benefits, and alternatives have been discussed and questions answered. Patient agrees to proceed with procedure.
--- NOTE | 2024-03-06 14:13 | WPDANESEPPF ---
Anes - Initial Pre Proc Eval Procedure: Operation Date: 03/06/24 13:30 Proposed Procedures p Robotic Assisted Laparoscopic Left Inguinal Hernia Repair with Mesh - Berry Morgan MD Date/Time: 03/06/24 14:13 Surgeon: Berry Morgan MD Pre Op Diagnosis: Reducible Left Ing Hernia Patient Data Age: 78 Gender: M Height: 1.83 m Weight: 73.8 kg Last Vital Signs Temp 97.8 F 03/06/24 11:43 Pulse 90 03/06/24 11:43 Resp 18 03/06/24 11:43 BP 149/87 H 03/06/24 11:43 Pulse Ox 100 03/06/24 11:43 O2 Del Method Room Air 03/06/24 11:43 Allergies Allergy/AdvReac Type Severity Reaction Status Date / Time atorvastatin AdvReac Intermediate Other Verified 03/06/24 12:33 isosorbide AdvReac Intermediate Unknown Verified 03/06/24 12:33 Home Medications Medication Instructions Recorded Confirmed Type mecobalamin (vitamin B12) 1,000 1,000 mcg sublingual DAILY 05/04/19 03/06/24 History mcg disintegrating tablet,sublingual omega-3 fatty acids 1,000 mg 1,000 mg PO BID 09/07/19 03/06/24 History capsule (Fish Oil Concentrate) OneTouch Ultra2 Meter #1 ea 04/28/20 03/06/24 Rx (blood-glucose meter) folic acid 1 mg tablet 1 mg PO DAILY #90 tabs 08/04/20 03/06/24 Rx blood sugar diagnostic (OneTouch See Rx Instructions .Route 07/14/21 03/06/24 Rx Verio test strips) .COMPLEX #200 ea aspirin 325 mg tablet 325 mg PO DAILY 10/22/22 03/06/24 History insulin glargine 100 unit/mL (3 See Rx Instructions .Route 07/11/23 03/06/24 Rx mL) subcutaneous pen (Basaglar .COMPLEX #15 mL KwikPen U-100 Insulin) tamsulosin 0.4 mg capsule See Rx Instructions .Route 08/20/23 03/06/24 Rx .COMPLEX #180 caps BD Ultra-Fine Mini Pen Needle 31 #100 ea 12/31/23 03/06/24 Rx gauge x 3/16 (pen needle, diabetic) rosuvastatin 5 mg tablet See Rx Instructions .Route 01/22/24 03/06/24 Rx .COMPLEX #90 tabs cholecalciferol (vitamin D3) 50 4,000 unit PO DAILY 01/31/24 03/06/24 History mcg (2,000 unit) capsule ibuprofen 200 mg capsule 400 mg PO BID PRN Pain 02/12/24 03/06/24 History S Alpha -Lipoic acid 300 mg BYMOUTH DAILY 02/21/24 03/06/24 History calcium polycarbophil 625 mg 625 mg PO DAILY 02/21/24 03/06/24 History tablet (FiberCon) gabapentin 300 mg capsule 300 mg PO HS 02/21/24 03/06/24 History empagliflozin 25 mg tablet 25 mg PO DAILY #30 tabs 03/02/24 03/06/24 Rx (Jardiance) metformin 1,000 mg tablet 1,000 mg PO DAILY #30 tabs 03/02/24 03/06/24 Rx Laboratory Tests 03/06/24 13:06 POC Capillary Glucose 95 mg/dl (65-105) Patient hx anesthesia problems: none Family hx anesthesia problems: none Results Review: All pre-operative results and documents have been reviewed as part of the pre-operative evaluation. [facility] Past Medical History Medical History Abdominal bloating Abnormal finding of blood chemistry Ankle fracture, right Anxiety and depression Asbestos exposure ASHD (arteriosclerotic heart disease) >4 METs Back pain Bilateral cataracts BMI 21.0-21.9, adult BMI 22.0-22.9, adult BMI 23.0-23.9, adult BMI 24.0-24.9, adult BMI 26.0-26.9,adult Borderline abnormal TFTs Carotid stenosis Cervical spondylosis Chronic fatigue Chronic sore throat CKD (chronic kidney disease), stage II Colon cancer screening Cough COVID-19 vaccine series completed Depression Diabetes mellitus type 2, insulin dependent DJD (degenerative joint disease) Dysphagia Elevated homocysteine Elevated PSA Encounter for Medicare annual wellness exam Encounter for routine adult health examination with abnormal findings Encounter for routine adult health examination without abnormal findings Follow up Grief Gross hematuria Hearing loss History of cataract History of head and neck cancer Hospital discharge follow-up Hx of bladder cancer Hyperlipidemia Hypersomnolence Hyperventilation Inguinal hernia 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 Loss of appetite Mandibular pain Mastodynia of left breast Memory impairment Nocturia 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 Onychomycosis Oral lesion Osteonecrosis of jaw Peripheral neuropathy PTSD (post-traumatic stress disorder) PVD (peripheral vascular disease) Renal mass Right shoulder pain Squamous cell carcinoma of head and neck Thoracic spondylosis Thyroid nodule Vitamin D deficiency Surgical History Surgical History History of coronary artery stent placement x6, last one in 2017 S/P cataract surgery Family History Family History Father Family history of lung disease Mother Family history of malignant neoplasm of gastrointestinal tract Social History Social History Smoking status: Never smoker Second hand tobacco smoke exposure: No Alcohol intake: current Alcohol use details: 2-3 BOTTLES PER WK Substance use: current Substance use type: marijuana Last use: 02/09/24 Lack of Transportation: No Lack of Food: Never True Current Housing: I Have Housing Concerned About Future Housing: No Difficulty Paying Gas/Electric Bills: No Difficulty Paying for Meds: No Currently Unemployed: No Education: High School Diploma/GED Living arrangements: alone Gender identity (if verbalized by the patient): Male Spiritual care concerns: No Anes - Eval Final PreProcedure Day of Procedure 03/06/24 14:13 Patient weight: normal Heart: regular rate and rhythm Lungs: clear to auscultation Airway: Mallampati scale class III Neurological: alert and oriented Last oral intake: >/= 8 hours ASA classification: III Emergent: no Anesthetic plan: proceed Anesthesia type and monitoring: general ETT (will do glide scope intubation secondary to radiation and chemo to throat area) and standard monitoring Other findings: per cardiology not moderate rish for procedure today Results Review: All pre-operative results and documents have been reviewed as part of the pre-operative evaluation. Informed Consent: The patient's anesthetic plan and its attendant risks and benefits were discussed with the patient/family/POA. Questions were solicited and answers provided to the satisfaction of the patient/family/POA.
[2024-03-06] MEDS: ceFAZolin 2 GM/D5W 50 ML 2 GM/50 ML BAG IVPB (14:19)
[2024-03-06] MEDS: BUPivacaine HCL 0.5% PF 30 ML VIAL INFILTRATE (14:59)
[2024-03-06] MEDS: LIDO 1%/EPINEPHRINE 1:100,000 20 ML VIAL 30 ML INFILTRATE (14:59)
--- NOTE | 2024-03-06 16:27 | P.OP_ITS ---
Procedure Note - Detailed Date of Procedure 03/06/24 Pre-op Diagnosis Reducible Left Ing Hernia Post-op Diagnosis Same Procedure Performed Robotic assisted laparoscopic left inguinal hernia repair with Bard 3D mid weight mesh. Surgeon Berry Morgan MD Electrical Systems Designer Jitendra Burgos PROPERTY ASSESSMENT MONITOR Anesthesia General Indications Patient is a 78-year-old gentleman with a large reducible bulge in the left groin region. He has a reducible left inguinal hernia. He presents now for elective robotic assisted laparoscopic left inguinal hernia repair with mesh Findings Patient had a large direct left inguinal hernia defect. No incarcerated bowel contents. Description of Procedure After informed consent was obtained patient brought to the operating room was placed supine position and general endotracheal anesthesia was administered. The abdomen the bilateral groin regions were then prepped and draped usual sterile fashion. A time-out was then performed correctly identifying the patient as well as procedure to be performed. Site marking was verified he was given perioperative IV antibiotics. I then proceeded to enter the abdomen left upper quadrant utilizing a 5mm Optiview port. Once inside the abdomen insufflated to adequate pneumoperitoneum of 15mm of mercury of CO2. No adhesions securing the lower abdomen and so I placed additional 8mm robotic trocar ports across the mid abdomen including the periumbilical region. I then switched out the 5mm left upper quadrant trocar port for a 10mm laparoscopic trocar port for the bedside radiology physician assistant. The patient was then placed in 15degree head-down Trendelenburg position allowed the bowel to fall out of the pelvis. Patient had a large direct inguinal hernia defect on the left side. I could see the right side had a prior repair. There was no evidence recurrent right inguinal hernia. The old mesh plug in the direct space was and position and well secured. I then proceeded to make the preperitoneal flap on the left side starting anterior medial to the left anterior superior iliac spine. The preperitoneal flap was created across the lower left abdomen and I divided the left side of the median umbilical ligament. Dissection was carried down this preperitoneal space initially down to the external ring where the peritoneum was dissected off of the cord structures without difficulty. The vas deferens and testicular vessels were preserved without injury. There was no evidence of a cord lipoma going through the indirect space. As I continued my dissection more medially I dissected down to the pubic tubercle and then dissected across the midline to the right side of the pubic symphysis. I then dissected down into the space of Retzius for couple cm. The peritoneum was then dissected out of the large direct inguinal hernia defect. It was then everted I continued my dissection the tissue off of the pubic tubercle. Identified the femoral space there is no evidence of a femoral hernia. I then carefully dissected the pe ritoneum off of the cord structures and carried my dissection back until the psoas muscle was identified. I then closed the direct defect utilizing a running 2-0 absorbable V lock suture and I imbricated the pseudo sac of the direct defect. Once this is complete I then chose an extra large piece of Bard 3D mid weight mesh shaped for the left groin region. It was placed through the bedside radiology physician assistant port site and then I placed into the dissected space in the left side of the pelvis. It was then secured to the tissues around the pubic tubercle utilizing interrupted 2-0 Vicryl sutures. Laterally the mesh was then secured to the muscle anterior medial to the left anterior suprailiac spine. Under suture was then placed to secure the mesh to the closed direct defect tissues. The mesh laid out very nicely without any tension. A cover the home myopectineal orifice with wide overlap. When I pulled up on the peritoneal flap there was no rolling up of the proximal edge of the mesh with the peritoneum. I then proceeded to close the peritoneum utilizing a running 2-0 absorbable V lock suture. Once the peritoneum was closed the mesh was completely the excluded from the intra-abdominal viscera. I then made sure there was no bleeding. I then scrubbed back into the procedure and the LaTherm Alberto robot was undocked from the patient's bedside and the robotic instruments were removed from the abdomen. I then proceeded to remove all the trocar ports under direct visualization all port sites appeared hemostatic. The abdomen was allowed to decompress. I then irrigated the port sites sterile saline solution. The 8mm periumbilical trocar port fascial defect as well as the 10mm left upper quadrant trocar port fascial defect then closed utilizing 0 Vicryl suture. The skin edges in all the port sites were then approximated utilizing a running subcuticular 4-0 Monocryl suture. The incisions were then cleaned the skin glue was applied. The patient tolerated the procedure well no complications. All sponges, needles, and instrument counts were correct at the end procedure. EBL was _20__cc. The patient was awakened and taken to recovery in stable and satisfactory condition. Implants Extra-large Bard 3D mid weight mesh [id number] placed on left groin region. Estimated Blood Loss 20 Drains No Packing No Pathology None sent Complications No immediate complications Condition Stable Disposition PACU [facility] Billing Surgery - Charge Forward: Surgery Billing
[2024-03-06 16:32] LABS: Glucose Point of Care 115 mg/dl (65-105)
[2024-03-06] MEDS: fentaNYL CITRATE INJ (*CRX) 100 MCG/2 ML VIAL 25 MCG IV PUSH ×4 (17:03→17:41)
[2024-03-06] MEDS: oxyCODONE HCL (*CRX) 5 MG TAB IR PO (17:47)
== END 2024-03-06 18:44 | disposition home or self-care (01) ==
PROVIDERS: PCP Internal Medicine; Visit Provider Surgery
PROC: 8E0Y4CZ Robotic Assisted Procedure of Lower Extremity, Percutaneous Endoscopic Approach (ICD-10-PCS; CPT 49650; principal; 2024-03-06 13:30)
DX: K40.90 Unilateral inguinal hernia, without obstruction or gangrene, not specified as recurrent (principal); I25.10 Atherosclerotic heart disease of native coronary artery without angina pectoris; F41.8 Other specified anxiety disorders; E11.22 Type 2 diabetes mellitus with diabetic chronic kidney disease; N18.2 Chronic kidney disease, stage 2 (mild); E78.5 Hyperlipidemia, unspecified; E11.51 Type 2 diabetes mellitus with diabetic peripheral angiopathy without gangrene; E55.9 Vitamin D deficiency, unspecified; F43.10 Post-traumatic stress disorder, unspecified; Z79.4 Long term (current) use of insulin; Z79.84 Long term (current) use of oral hypoglycemic drugs; Z95.5 Presence of coronary angioplasty implant and graft
CPT/HCPCS: 49650; S2900; 82948; A9270; C1781; J0690; J1100; J1885; J2003; J2004; J2405; J2704; J3010; J7120

== ENCOUNTER 2024-06-25 15:49 | Outpatient (CLI) | payer MEDICARE, SELFPAY ==
--- NOTE | ~2024-06-25 | XR_ITS ---
XR cervical spine 4-5V Ordering provider: Nuno Cavazos MD History: . R93.89 - Abnormal findings on diagnostic imaging of other... . Comparison: None. FINDINGS: VERTEBRAL BODIES: Normal height and alignment. No visible fracture or subluxation. The dens is intact . Degenerative changes of the spine. DISK SPACES: Narrowing of the disc C5-C6 and C6-C7. Multilevel Facet joint disease. Multilevel uncove rtebral joint osteoarthritic changes. PARASPINOUS SOFT TISSUES: No prevertebral soft tissue swelling. IMPRESSION: No acute osseous abnormality cervical spine. Multilevel degenerative disc disease. Reviewed, dictated and finalized at location A. RVISING LIBRARIAN
--- NOTE | ~2024-06-25 | XR_ITS ---
HISTORY: M54.2 - Cervicalgia COMPARISON: None TECHNIQUE: 3 views of the thoracic spine were performed. FINDINGS: No acute compression fracture is present. Bone mineralization is age-appropriate. Significant degenerative disease is identified with osteophyte formation (some bridging) disc space n arrowing and endplate changes. No acute compression fracture is noted. IMPRESSION: Significant degenerative disease, without acute compression fracture. Reviewed, dictated and finalized at location A. S BLOWING INSTRUCTOR IMPRESSION: Significant degenerative disease, without acute compression fractu re.
== END 2024-06-25 15:50 | disposition home or self-care (01) ==
PROVIDERS: PCP Internal Medicine; Visit Provider Internal Medicine
DX: M47.812 Spondylosis without myelopathy or radiculopathy, cervical region (principal); M50.322 Other cervical disc degeneration at C5-C6 level; M50.323 Other cervical disc degeneration at C6-C7 level; R93.89 Abnormal findings on diagnostic imaging of other specified body structures
CPT/HCPCS: 72050; 72072

== ENCOUNTER 2024-06-30 08:47 | Outpatient (CLI) | payer MEDICARE, SELFPAY ==
--- NOTE | ~2024-06-30 | NM_ITS ---
EXAMINATION: NM bone scan whole body DATE: 06/30/2024 12:42 INDICATION: Disorder of bone, unspecified. TECHNIQUE: 24.6 mCi Tc-99m HDP was administered intravenously. Delayed whole-body scintigrams were o btained. COMPARISON: CT chest, abdomen, and pelvis 02/12/2024, cervical and thoracic spine radiographs FINDINGS: There is multifocal increased activity in the spine correlating with severe cervical, thora cic, and lumbar spondylosis by CT. There is joint-centered increased activity in the knees, likely os teoarthritis. There is asymmetric increased activity at right acromioclavicular joint correlating wit h osteoarthritis by CT. IMPRESSION: 1. Spondylosis and osteoarthritis. Reviewed, dictated and finalized at location B.
--- OUTSIDE RECORDS SUMMARY | 2024-06-30 09:17 | XMS_ITS | Clinical Summary ---
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
--- OUTSIDE RECORDS SUMMARY | 2024-06-30 09:17 | XMS_ITS | Continuity of Care Document ---
Author Organization [facility] Address [address] [place] [address] Phone Care Team Providers Care Prosthetics Lab Technician Name Role Phone Frias OD, Jitendra Unavailable Unavailable Procedures Procedure Date Office/outpatient Visit, Est Office/outpatient Visit, Est Eye Exam & Treatment Eye Exam & Treatment Refraction Advance Directives Directive Yes / No Effective Date File Name No Information Encounters Encounter Description Practice Location Reason(s) For Visit Diagnoses Date Provider Providers Copied on Encounter Office/outpat ient Visit, [facility], [address] [place] [address] [address], [place], [place], [id number], [place] tel:[phone] [facility] No Information 0-201 0 Frias OD Jitendra. [address] , [address], [place], [place], [facility], [place]. tel:[phone] Office/outpat ient Visit, [facility], [id number] [place] [address] [address], [place], [place], [id number], [place] tel:[phone] [facility] No Information 3-200 9 Frias OD Jitendra. [address], [address], [place], [address], [place]. tel:[phone] [facility], [address] [place] [address] [address], [place], [place], [id number], [place] tel:[phone] [facility] No Information Mar-2 7-200 8 Frias OD Jitendra. [address] , [address], [place], [address], [place]. tel:[phone] [facility], [address] [facility] [address], [place], [place], [id number], [place] tel:[phone] [facility] No Information Feb-0 6-200 7 Frias OD Jitendra. [address] , [address], [place], [address], [place]. tel:[phone] Family History Family Member Type Diagnosis Age At Onset No Information Payers Payer name Insurance type Covered republican ID Authoririsa bebeto(s) [facility] [id number] Social History Type Description Quantity Date Captured Comments Sex Male Smoking Status No Information Chief Complaint And Reason For Visit No Information Reason For Referral Reason For Referral No Information History Of Present Illness Encounter Date Complaint History Of Prese nt Illness No Information Functional Status Date Functional Assessmen t No Information Instructions Date Instruction Additional Infor mation No Information Assessments Type Assessment Date No Information Patient Care Teams Name Effective Dates (start - stop) Status Members No Information
--- OUTSIDE RECORDS SUMMARY | 2024-06-30 09:17 | XMS_ITS | Clinical Summary ---
Author Organization [facility] Address [address] [place] [address] Care Team Providers Care Resident Care Manager Rn Name Role Phone Nuno Cavazos MD Primary Care Provider [phone] Jerzy Watt MD Unavailable [phone] Palmer Thomas MD Unavailable [phone] Adam Dhaliwal MD Unavailable Gerardo Kemp MD Unavailable [phone] Allergies Active Allergy Reactions Criticality Noted Date Comments Atorvastatin Muscle pain,Other (See comments) Medium 0 10/09/2019 leg pain Isosorbide Dizziness,Nausea onl y,Other (See comments) Low 10/20/2020 Medications alpha lipoic acid 600 mg capsuleIndications :supplement Take 1 capsule (600 mg total) by mouth nightly Stopped taking on 01/02/20 7 Active aspirin 325 mg tabletIndications: 6 stents Take 1 tablet (325 mg total) by mouth every morning 6 Active rosuvastatin (CRESTOR) 5 mg tabletIndications: hyperlipidemia Take 1 tablet (5 mg total) by mouth every morning 7 Active folic acid (FOLVITE) 1 mg tabletIndications: Folic Acid Deficient Megaloblastic Anemia Take 1 tablet (1,000 mcg total) by mouth nightly Stopped taking on 01/02/20 9 Active PSYLLIUM HUSK ORALIndications:lang pplement Take 1 tablet by mouth nightly Stopped taking on 01/02/20 Active tamsulosin (FLOMAX) 0.4 mg extended release capsuleIndications :benign prostatic hyperplasia with lower urinary tract sx Take 1 capsule (0.4 mg total) by mouth every morning 0 Active cholecalciferol (VITAMIN D-3) 25 mcg (1,000 unit) tabletIndications: Vitamin D Deficiency Take 1 tablet (1,000 Units total) by mouth nightly Stopped taking on 01/02/20 Active empagliflozin-metf ormin (Synjardy XR) 25-1,000 mg tablet, IR & ER, biphasic 24hrIndications:ty pe 2 diabetes mellitus Take 1 tablet by mouth every morning Active docosahexaenoic acid/epa (FISH OIL ORAL)Indications:s upplement Take 2,000 tablets by mouth 2 (two) times a day Stopped taking on 01/02/20 Active cyanocobalamin 2,000 mcg tabletIndications: Prevention of Vitamin B12 Deficiency Take 1 tablet (2,000 mcg total) by mouth 2 (two) times a day Stopped taking on 01/02/20 Active OneTouch Verio test strips strip USE TO CHECK BLOOD SUGAR SIX TIMES DAILY 0 Active BD Ultra-Fine Mini Pen Needle 31 gauge x 3/16 needle 0 Active Basaglar KwikPen U-100 Insulin 100 unit/mL (3 mL) insulin pen INJECT 18 UNITS UNDER SKIN QD 0 Active LORazepam (ATIVAN) 0.5 mg tablet Take 1 tablet (0.5 mg total) by mouth every 8 (eight) hours as needed Active docosahexaenoic acid-epa 120-180 mg capsule Take by mouth Active ibuprofen (ADVIL,MOTRIN) 200 mg tab/cap Take by mouth every 6 (six) hours as needed for pain Active ciclopirox (PENLAC) 8 % solution 2 Active Active Problems Problem Noted Date Diagnosed Date 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 Stents in CFX 08/15/15 and 09/03/16 Pure hypercholesterolemia 10/20/2020 Sensorineural hearing loss, bilateral 03/09/2020 Failure to thrive in adult 01/28/2020 Assessment & Plan (01/31/2020 2:09 PM CDT): - Patient was diagnosed with SCC of the left tonsil and is currently following Dr Watt. Has finished 3 cycles of cisplatin and completed definitive radiation therapy (as per pt finished today). Has significant dysphagia 2/2 significant oral stomatitis, xerostomia and thick oral mucus. Lost approximately 15 lbs over the last 4 weeks due to poor oral intake and approximately 30 lbs over the last 4 months. Is admitted for feeding tube placement by IR. IR placed G tube on 01/27. - RD consulted and patient initiated on TF on 01/28 Severe malnutrition 01/28/2020 Assessment & Plan (01/31/2020 2:10 PM CDT): - has lost almost 15 lbs over the last 1 month from significant dysphagia due to chemo associated mucositis, oral stomatitis, thick oral secretion, radiation injury. Patient was eating only boost at home and was able to keep down about 530 calories/day for weeks as per - IR placed G tube on 01/27 - Initiated on TF as per RD recommendation. Considering poor intake for long time, there was concern for refeeding syndrome with tube feed. Noted hypokalemia and hypophosphatemia on day 2 after feeding. Checked electrolytes and monitored on tele. 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 - Has finished 3 cycles of cisplatin and completed definitive radiation therapy (as per pt finished today). - will continue to follow oncology as outpatient. No inpatient treatment from oncology standpoint at this point. Atherosclerosis of [place] of both lower extremities with intermittent claudication 08/07/2017 Assessment & Plan (01/29/2020 12:08 PM CDT): - has hx of CAD s/p multiple stents. - home regimen: aspirin, crestor. Will continue medications. Assessment & Plan (12/18/2018 10:24 AM CDT): Impression: Stable nondisabling bilateral calf level claudication. No ischemic ulcerations or ischemic rest pain. Plan: Continue current risk factor modifications. Patient follow-up in 1 year for re-evaluation and repeat arterial Doppler surveillance. Bilateral carotid artery stenosis 08/05/2017 Assessment & Plan (02/14/2023 2:18 PM CDT): Possible severe right internal carotid artery stenosis and moderate left internal carotid artery stenosis. I would request his imaging to further evaluate his CTA head and neck, pending this he may need a carotid duplex. I discussed the importance of continuing ASA and his Crestor. Either way he is going to need continued surveillance, we discussed the recommendation for intervention at 80% stenosis if he is continues to be asymptomatic or greater than 50% stenosis if he becomes symptomatic. I will call him with the results of his CT scan. Inguinal pain 02/18/2017 Occlusion and stenosis of bilateral carotid chema lita 12/31/2016 Assessment & Plan (12/18/2018 10:24 AM CDT): Impression: Stable asymptomatic bilateral internal carotid stenosis. Plan: Continue current risk factor modifications. Patient to follow-up in 1 year for re-evaluation and repeat carotid duplex surveillance. Type 2 diabetes mellitus 05/21/2016 Assessment & Plan (01/31/2020 2:11 PM CDT): - Hgb A1c 8.1 on admission. - home regimen: synjerdy and Novolin 70/30 25 units BID - held synjerdy while inpatinet. Switched to lantus 10 units and MDSSI. Discharged on home regimen. Advised to keep log of blood sugar and if persistently above 300, call PCP for adjustment Gastroesophageal reflux disease 05/21/2016 Hypoglycemia, unspecified 05/21/2016 Nocturia 05/21/2016 Diabetic peripheral neuropathy 05/21/2016 Muscle pain 12/20/2015 Ischemia 09/20/2015 History of cardiovascular surgery 09/20/2015 Abnormal thallium stress test 08/04/2015 Chronic coronary artery disease 07/26/2015 Assessment & Plan (02/14/2023 2:19 PM CDT): Stable continue ASA. Chest pain 10/28/2012 Myocardial ischemia 10/28/2012 Hyperlipidemia 10/28/2012 Assessment & Plan (02/14/2023 2:18 PM CDT): Stable continue Crestor 5 mg Immunizations Immunization Administration Dates Next Due Influenza, Quadrivalent, Hig h Dose, Preservative Free, Intrr 01/28/2020 Influenza, Trivalent, High D ose, Split, Preservative Free, Intramuscular 05/01/2019 Moderna SARS-CoV-2 Monovalent Vaccination (12+ Y RS) 06/16/2020 Surgical History Surgery Date Site/Laterality Comments HERNIA REPAIR Hernia Repair - inguinal - and 2000 (Added by TW Conv) KNEE SURGERY Knee Surgery - Arthroscopy - Left and Right knees (Added by TW Conv) SHOULDER SURGERY Shoulder Surgery - Left - rotator cuff (Added by TW Conv) [place] PRQ TRLUML CORONARY STENT W/ANGIO ONE ART/BRNCH Cath Stent Placement - 99% mid- LCx. GISSELLE placed (Added by TW Conv) CENTRAL LINE PLACEMENT > 5 YEARS 12/08/2019 N/A CARDIAC STENT PLACEMENT 2016, 2018 1 stent in 2017 and 5 stents in 2018 BLADDER SURGERY 6-7 years ago for bladder cancer ANKLE FRACTURE SURGERY 01/06/2020 Right open reduction internal fixation right lateral malleolus fracture IR G TUBE PLACEMENT PERCUTANEOUS 01/28/2020 N/A Medical History Medical History Date Comments Personal history of malignan t neoplasm of bladder History of malignant neoplas m of bladder - (Added by TW Conv) Autoimmune disorder Cancer (HCC) Heart disease Neuropathy Peripheral vascular disease HL (hearing loss) Tinnitus Coronary artery disease 6 stents Type 2 diabetes mellitus (HCC) Anxiety Hiatal hernia Peripheral neuropathy History of chemotherapy last aixa atment was 12/30/19 History of radiation therapy las t treatment was 01/04/20 Family History Medical History Relation Name Comments Cancer Father Lung cancer Father Cancer, lung; C ause of : Cancer, lung Lung disease Father Family history of lung disease - lung cancer (Added by TW Conv) Cancer Mother Family history of cancer - (Added by TW Conv) Rectal cancer Mother Rectal Cancer; Cause of : Rectal Cancer Anesthesia problems Neg Hx Relation Name Status Comments Father (Age 82) Mother (Age 89) Social History Tobacco Use Types Packs/Day Years Used Date Smoking Tobacco: Never Smokeless Tobacco: Never Alcohol Use Standard Drinks/Week Comments Yes 4 (1 standard drink = 0.6 oz pur e alcohol) AUDIT-C Answer Date Recorded Q1: How often do you have a drink containing alc ohol? 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 Gender Identity Male 01/20/2021 11:13 AM CDT Sexual Orientation Straight 12/07/2019 12 :26 PM CDT Obstetrics History Last Filed Vital Signs Vital Sign Reading Time Taken Comments Blood Pressure 155/81 08/14/2022 10:51 AM CDT Pulse 100 08/14/2022 10:51 AM CDT Temperature 36.4 C (97.5 F) 08/14/2022 10:51 AM CDT Respiratory Rate 18 08/14/2022 10:51 AM CDT Oxygen Saturation 99% 08/14/2022 10:51 AM CDT Inhaled Oxygen Concentration - - Weight 77.1 kg (170 lb) 12/24/2023 1:34 PM CDT Height 182.9 cm (6') 12/24/2023 1:34 PM CDT Body Mass Index 23.06 12/24/2023 1:34 PM CDT Plan of Treatment Health Maintenance Due Date Last Done Comments Albumin Creatinine Ratio, Urine 1946 Depression Screening 1946 Hepatitis C Screening 1946 eGFR 1946 Dilated Eye Exam 1946 Foot Exam 1946 DTaP/Tdap/Td Vaccine (1 - Tdap) 1957 Hepatitis B Screening 1964 Pneumococcal vaccine 65+ (1 of 2 - PCV) 1965 Zoster Vaccine (1 of 2) 1996 Well Visit 65+ 07/04/2011 Hemoglobin A1C 07/28/2020 01/28/2020 Lipid Panel 01/27/2021 01/28/2020, 08/12/2015 Fall Risk Assessment 05/25/2021 05/25/2020 Covid-19 Vaccine (2 - season) 2023 Influenza Vaccine (#1) 2023 01/28/2020, 2019 Medical Devices Implanted Type Area Internet Site Designer Device Identifier Shelf Expiration Date Model / Serial / Lot [employer] [id number] Evos [id number] 16.3x1.7mm 7 Hole Low Profile Variable Angle Lock - S0 - [id number] Implanted:Qty: 1 on 01/06/2020 by Paula Maradiaga MD at [facility] Plate Right: Ankle [employer] [id number] / 0 / [employer] [id number] Evos 3.5mm 20mm Self Tap Cortex Screw Bone Sterile - S0 - [id number] Implanted:Qty: 1 on 01/06/2020 by Paula Maradiaga MD at [facility] Screw Right: Ankle [employer] tho [id number] / 0 / [employer]o [id number] Evos 3.5mm 14mm Self Tap Cortex Screw Bone Sterile - S0 - [id number] Implanted:Qty: 2 on 01/06/2020 by Paula Maradiaga MD at [facility] Screw Right: Ankle [employer] tho [id number] / 0 / [employer] [id number] Evos 3.5mm 12mm Self Tap Cortex Screw Bone Sterile - S0 - [id number] Implanted:Qty: 1 on 01/06/2020 by Paula Maradiaga MD at [facility] Screw Right: Ankle [employer] [id number] / 0 / [employer] [id number] Evos 3.5mm 15mm Self Tap Cortex Screw Bone Sterile - S0 - [id number] Implanted:Qty: 1 on 01/06/2020 by Paula Maradiaga MD at [facility] Screw Right: Ankle [employer] [id number] / 0 / [employer] [id number] 4mm 4.5mm 16mm Self Retaining Screwdriver T8 Full Thread Screw - S0 - [id number] Implanted:Qty: 3 on 01/06/2020 by Paula Maradiaga MD at [facility] Screw Right: Ankle [employer] [id number] / 0 / [employer] [id number] 4mm 4.5mm 18mm Self Retaining Screwdriver T8 Full Thread Screw - S0 - [id number] Implanted:Qty: 1 on 01/06/2020 by Paula Maradiaga MD at [facility] Screw Right: Ankle [employer] tho [id number] / 0 / Procedures Procedure Name Priority Date/Time Associated Diagnosis Comments HEMOGLOBIN A1C Routine 01/28/2020 3:22 PM CDT LIPID PANEL Routine 01/28/2020 3:22 PM CDT from Last 3 Months or Most Recently Relevant to Health Maintenance Results * (ABNORMAL) Hemoglobin A1c (01/28/2020 3:22 PM CDT) Hgb A1C 8.1(H) 4.0 - 5.6 % [facility] Estimated Average Glucose 186 mg/dL [facility] Comment: The ADA recommends reporting an estimated Average Glucose (eAG) with all Hemoglobin A1c results using the equation derived from a study of 507 normal and diabetic adults. Minority populations were underrepresented and children were not included. (Diabetes Care 31:6856-0883, 2008). The eAG is not equivalent to a fasting glucose. Blood specimen (specimen) 01/28/2020 3:22 PM CDT 01/28/2020 3:46 PM CDT Pedro Luis Noe MD LAB BLOOD ORDERABLES Final Re sult [facility] Department [place] [address] * Lipid panel (01/28/2020 3:22 PM CDT) Cholesterol 148 30 - 199 mg/dL [facility] Comment: Interpretive Data Ages < or = 19 years Acceptable: <170 mg/dL Borderline high: 170-199 mg/dL High: >or= 200 mg/dL Ages > or = 20 years Desirable: <200 mg/dL Borderline high: 200-239 mg/dL High: >or= 240 mg/dL Literature References: 1. Expert Panel on Integrated Guidelines for Cardiovascular Health and Risk Reduction in Children and Adolescents. Pediatrics 2011;128:S213 2. NCEP Expert Panel. Circulation 2004;110:227 Current Interpretive Data was last revised on 2017. Triglycerides 125 <=149 mg/dL [facility] Comment: Interpretive Data Ages < or = 9 years Acceptable: <75 mg/dL Borderline high: 75-99 mg/dL High: >or= 100 mg/dL Ages 10 to 20 years Acceptable: <90 mg/dL Borderline high: 90-129 mg/dL High: >or= 130 mg/dL Ages > or = 20 years Desirable: <150 mg/dL Borderline high: 150-199 mg/dL High: 200-499 mg/dL Very high: >or= 499 mg/dL Literature References: 1. Expert Panel on Integrated Guidelines for Cardiovascular Health and Risk Reduction in Children and Adolescents. Pediatrics 2011;128:S213 2. NCEP Expert Panel. Circulation 2004;110:227 Current Interpretive Data was last revised on 2017. HDL 59 >=40 mg/dL [facility] Comment: Interpretive Data Ages < or = 19 years Acceptable: >45 mg/dL Borderline low: 40-45 mg/dL Low: <40 mg/dL Ages > or = 20 years Desirable: >or= 60 mg/dL Low: <40 mg/dL Literature References: 1. Expert Panel on Integrated Guidelines for Cardiovascular Health and Risk Reduction in Children and Adolescents. Pediatrics 2011;128:S213 2. NCEP Expert Panel. Circulation 2004;110:227 Current Interpretive Data was last revised on 2017. LDL, calculated 64 <=129 mg/dL [facility] Comment: Interpretive Data Ages < or = 19 years Acceptable: <110 mg/dL Borderline high: 110-129 mg/dL High: >or= 130 mg/dL Ages > or = 20 years Optimal: <100 mg/dL Near optimal: 100-129 mg/dL Borderline high: 130-159 mg/dL High: >160 mg/dL Literature References: 1. Expert Panel on Integrated Guidelines for Cardiovascular Health and Risk Reduction in Children and Adolescents. Pediatrics 2011;128:S213 2. NCEP Expert Panel. Circulation 2004;110:227 Current Interpretive Data was last revised on 2017. Non-HDL Cholesterol 89 mg/dL [facility] Comment: Interpretive Data Ages < or = 19 years Acceptable: <120 mg/dL Borderline high: 120-144 mg/dL High: >145 mg/dL Ages > or = 20 years When triglycerides are >200 mg/dL, Non-HDL cholesterol is a secondary target of therapy with treatment goals that are 30 mg/dL greater than the LDL cholesterol target. Literature References: 1. Expert Panel on Integrated Guidelines for Cardiovascular Health and Risk Reduction in Children and Adolescents. Pediatrics 2011;128:S213 2. NCEP Expert Panel. Circulation 2004;110:227 Current Interpretive Data was last revised on 2017. Chol/HDL ratio 3 [facility] Blood specimen (specimen) 01/28/2020 3:22 PM CDT 01/28/2020 3:46 PM CDT Pedro Luis Noe MD LAB BLOOD ORDERABLES Final Re sult [facility] [place] [address] from Last 3 Months or Most Recently Relevant to Health Maintenance Insurance [facility]IC[facility] SUPPLEMENT MEDICARE GE MCR SUPPLEMENT COMMERCIAL GENERIC MEDICARE [facility] [place] [id number] [facility] [place] [address] [facility] MCR SUPPLEMENT Advance Directives For more information, please contact: [phone] Documents on File Type Date Recorded Patient Paper Mill Manager Expl anation ADVANCE DIRECTIVE 12/22/2019 9:26 AM Power of Advanced Seal Delivery System-Medical * Full Code (Latest Code Status on File) Date Activated Date Inactivated Comments 01/28/2020 12:37 PM 02/01/2020 12:10 AM * Full Code Date Activated Date Inactivated Comments 12/08/2019 8:07 AM 12/08/2019 1:47 PM Care Teams Resident Care Manager Rn Relationship Specialty Start Date End Date Nuno Cavazos MD [address] [place] [address] PCP - General 02/18/17 Jerzy Watt MD [address] [facility] [address] [place] [address] Referring Physician Medical Oncology 11/07/19 Palmer Thomas MD [address] [place] [address] Referring Physician Otolaryngology 11/07/19 Adam Dhaliwal MD [address] [facility] [address] [place] [address] Radiation Oncologist Radiation Oncology 11/07/19 Gerardo Kemp MD [address] [facility] [address] [place] [address] Referring Physician Cardiovascular Disease 02/13/22
--- OUTSIDE RECORDS SUMMARY | 2024-06-30 09:17 | XMS_ITS | Patient Health Summary ---
Author Organization [facility] [employer] Address [address] [place] [address] Care Team Providers Care Floor Space Allocator Name Role Phone Galo Kemp MD Unavailable [phone] Nuno Cavazos MD Primary Care Provider [phone] Note from [facility],non-owned Affiliates and Associated Physician Practices is amultiple site organization consisting of ambulatory clinics and hospital sitesin [place], [place], [place] and [place]. This disclosure is being madepursuant to the Care Everywhere program and may not contain all information available regarding this patient. Last updated 18.[facility] Allergies * Atorvastatin(Other) -Medium Criticality * Isosorbide(Dizziness,Other) -Low Criticality Medications * Be aware that medications may not be up to date on this document. Always verify current medications with the patient. * Cholecalciferol 25 MCG (1000 UT) Take 1 (one) tablet by mouth once daily * aspirin (ASPIRIN) 325 MG tablet Take 1 (one) tablet by mouth once daily * calcium polycarbophil (FIBERCON) 625 MG tablet Take by mouth at bedtime * folic acid (FOLVITE) 1 MG tablet Take 1 (one) tablet by mouth once daily * Basaglar KwikPen (BASAGLAR) pen Inject subcutaneously at bedtime * LORazepam (ATIVAN) 0.5 MG tablet Take 0.5 mg by mouth every 8 hours as needed for Anxiety * Cyanocobalamin (VITAMIN B-12 1000 MCG) 1000 MCG SUBL * [place]-3 1000 MG * rosuvastatin (Crestor) 5 MG tablet Take 1 (one) tablet by mouth once daily * empaglifozin-metFORMIN ER 24hr (SYNJARDY XR) 25-1000 MG tablet Take 1 (one) tablet by mouth once daily * tamsulosin (FLOMAX) 0.4 MG capsule Take 2 (two) capsules by mouth once daily At the same time every day after a meal. * ibuprofen (MOTRIN) 800 MG tablet Take 1 (one) tablet by mouth every 6 hours as needed for Pain * B-D UF III MINI PEN NEEDLES 31G X 5 MM needle(Started 09/23/2023) USE TO INJECT INSULIN DAILY. * apixaban (Eliquis) 5 MG tablet(Started 12/25/2023) Take 1 (one) tablet by mouth 2 times daily 3 refills by 12/24/2024 Active Problems Problem Noted Date Diagnosed Date Left-sided carotid artery disease 12/25/2023 Preoperative cardiovascular examination 12/25/19 24 Atrial flutter 10/20/2020 CAD in [place] artery 10/20/2020 Pure hypercholesterolemia 10/20/2020 Type 2 diabetes mellitus, [facility] long-term current use of insulin 10/20/2020 History of coronary artery stent placement 10/20 Immunizations * INFLUENZA VACCINE, HIGH-DOSE, QUADR. (FLUZONE HIGH-DOSE QUADRIVALENT; 65Y+), 0.7 ML (HD-IIV4)(Given 03/11/2021, 05/01/2019) Social History Tobacco Use Types Packs/Day Years Used Date Smoking Tobacco: Never Smokeless Tobacco: Never Tobacco Cessation:Counseling Given: Not Answered Alcohol Use Standard Drinks/Week Comments Yes 0 (1 standard drink = 0.6 oz pur e alcohol) PHQ-2 Answer Date Recorded Patient Health Questionnaire-2 Score 0 12/25/2023 Sex and Gender Information Value Date Recorded Sex Assigned at Male 10/19/2020 8:07 PM CDT Gender Identity Male 10/19/2020 8:07 PM CDT Sexual Orientation Straight 10/19/2020 8: 07 PM CDT Last Filed Vital Signs Vital Sign Reading Time Taken Comments Blood Pressure 153/103 01/22/2024 12:25 PM CDT Pulse 75 01/22/2024 12:25 PM CDT Temperature 36.7 C (98 F) 12/25/2023 9:31 AM CDT Respiratory Rate - - Oxygen Saturation 98% 10/21/2015 9:09 AM CDT Inhaled Oxygen Concentration - - Weight 76.7 kg (169 lb) 12/25/2023 9:31 AM CDT Height 182.9 cm (6') 12/25/2023 9:31 AM CDT Body Mass Index 22.92 12/25/2023 9:31 AM CDT Procedures * NM MYOCARD PERF REST STRESS(Performed 01/22/2024) Performed for CAD in [place] artery, History of coronary artery stent placement, Preoperative cardiovascular examination * STRESS TEST(Performed 01/22/2024) Performed for Coronary artery disease involving [place] heart without angina pectoris, unspecified vessel or lesion type, Preop cardiovascular exam, Stented coronary artery * VAS CAROTID DUPLEX BILATERAL(Performed 01/22/2024) Performed for Stenosis of left carotid artery, Preoperative cardiovascular examination * EKG 12-LEAD(Performed 12/25/2023) Performed for CAD in [place] artery, Typical atrial flutter (HCC) * VASCULAR LAB ORDER(Performed 08/29/2022) * ECHO STRESS EXERCISE COLOR FLOW AND DOPPLER W CONTRAST(Performed 08/10/2022) Performed for Typical atrial flutter (HCC), CAD in [place] artery, History of coronary artery stent placement * IMAGING/RADIOLOGY/XRAY RESULTS ORDER(Performed 08/07/2022) * IMAGING/RADIOLOGY/XRAY RESULTS ORDER(Performed 08/07/2022) * IMAGING/RADIOLOGY/XRAY RESULTS ORDER(Performed 02/06/2022) * IMAGING/RADIOLOGY/XRAY RESULTS ORDER(Performed 02/06/2022) * LAB RESULTS ORDER(Performed 11/24/2021) * HEMOGLOBIN A1C(Performed 10/19/2015) * BASIC METABOLIC PANEL (CALCIUM TOTAL)(Performed 10/19/2015) * TSH(Performed 06/06/2015) * CALCIUM URINE RANDOM(Performed 06/06/2015) * PTH INTACT W/O CALCIUM(Performed 06/06/2015) * VITAMIN D 25-HYDROXY D2+D3(Performed 06/06/2015) * C-PEPTIDE(Performed 06/06/2015) * COMPREHENSIVE METABOLIC PANEL(Performed 06/06/2015) * VITAMIN B12(Performed 06/06/2015) * VAS CAROTID DUPLEX LTD(Performed 08/15/2012) * IMAGING/RADIOLOGY/XRAY RESULTS ORDER(Performed 07/28/2012) Results * NM MYOCARD PERF REST STRESS (01/22/2024 2:04 PM CDT) Anatomical Region Laterality Modality Chest Nuclear Digisoni cs 01/22/2024 1:25 PM CDT Narrative Procedure Note [place] Verito M, DO - 01/23/2024 [address] [place] [address] [facility] Myocardial Perfusion Scan Report Pat.Name: ENEIDA TRAYLOR JR Pat.ID: [id number] St.Date: 01/22/2024 Refer.MD: Allyssa Cavazos Exam Time: 1:25:00 PM Study Type:Nuclear Myocardial Perfusion Scan Weight: 169lb Age: 3 1945,78Y Sex: MALE Sonogrphr: VIC Garza Reason for Study: CAD, Preoperative evaluation for hernia History / Clinical: Diabetes, Coronary artery disease, Pure hypercholesterolemia, History of coronary artery stent placement Left-sided carotid artery disease Procedures: Exercise Perfusion Scan, Gated Stress Race: Not or Visit ID: [id number] Risk Factors:Diabetes, Hypercholesterolemia Surgery: Cardiac Stent Placement Medications:Aspirin, Diabetic medications, Eliquis, Folvite, Crestor ++++++++++++++++++++++++++++++++++++ SUMMARY: ++++++++++++++++++++++++++++++++++++ FINDINGS: Myocardial perfusion imaging reveals a moderate sized area of mild to moderate decreased activity in the inferior wall which is fixed between both imaging sets and is consistent with prior infarct or attenuation artifact.. The remaining biggs demonstrate normal perfusion. LV cavity size appears normal in both imaging sets. Gated SPECT myocardial imaging reveals normal LV systolic function with a calculated ejection fraction of 69%. SUMMARY: 1. Abnormal myocardial perfusion study with a small to moderate area of infarct versus soft-tissue attenuation artifact in the inferior wall. There is no ischemia present. 2. Gated SPECT images reveal normal LV systolic function. ++++++++++++++++++++++++++++++++++++ STRESS: ++++++++++++++++++++++++++++++++++++ Baseline Vital Signs: Atropine 0 Stress Test Results: Target HR 122 Symptoms and Complications: Signed 01/23/2024 08:45 PM Verito Callahan DO Galo Kemp MD NM ORDERABLES * STRESS TEST Treadmill (01/22/2024 12:26 PM CDT) Anatomical Region Laterality Modality Cardiac Electrop hysiology 01/22/2024 11:4 5 AM CDT Narrative 01/23/2024 6:50 PM CDT Patient Info Name: Eneida Traylor Age: 78 years : 1945 Gender: Male Ht: 72 in Wt: 169 lb BSA: 1.97 m2 HR: 75 bpm BP: 153 / 103 mmHg Heart Rhythm: marked ST abnormality, Atrial Flutter, with variable AV block with premature ventricular contractions, Septal infarct, age undetermined. Exam Date: 01/22/2024 11:45 AM Patient Status: O/P Study Site: [facility] Primary Location: [facility] EStudy Info Exam Type: STRESS TEST Indications I25.10 - Coronary artery disease involving [place] heart without angina pectoris, unspecified vessel or lesion type Z01.810 - Preop cardiovascular exam Z95.5 - Stented coronary artery Procedure(s) * Treadmill stress test was performed. Staff Referring Physician: Galo Kemp Ordering Provider: Galo Kemp Attending Physician: Galo Kemp Nurse: Jared Arroyo Exercise Physician: Verito Callahan Stress Staff: Jared Almeida Summary * Indication for the stress test, coronary artery disease, history of stent, preop clearance. * Normal ST segment response to stress. * A peak heart rate of 151 bpm was achieved, 106% PMHR. * No chest discomfort with stress test. * No ischemic EKG changes during treadmill nuclear stress. * Stress ECG is negative for ischemia. * Nuclear test results to follow. Protocol: Santi Stress ECG Details Stage: Rest Duration (min): --- Speed (mph): --- Grade (%): --- HR (bpm): 75 SBP (mmHg): 153 DBP (mmHg): 103 METS: --- Symptoms: None Stage: 1 Duration (min): 3 min : 0 sec Speed (mph): 1.7 Grade (%): 10 HR (bpm): 120 SBP (mmHg): 213 DBP (mmHg): 83 METS: --- Symptoms: None Stage: 2 Duration (min): 3 min : 0 sec Speed (mph): 2.5 Grade (%): 12 HR (bpm): 150 SBP (mmHg): 216 DBP (mmHg): 86 METS: --- Comments: PEAK/LEG FATIGUE Stage: Recovery Duration (min): 2 min : 0 sec Speed (mph): --- Grade (%): --- HR (bpm): 103 SBP (mmHg): 187 DBP (mmHg): 82 METS: --- Symptoms: None Stage: Recovery Duration (min): 5 min : 0 sec Speed (mph): --- Grade (%): --- HR (bpm): 82 SBP (mmHg): 184 DBP (mmHg): 80 METS: --- Symptoms: None Target HR Summary: Test terminated after reaching maximum heart rate BP Response: Patient exhibited a hypertensive response with stress Cardiac Symptoms: None Resting ECG Atrial flutter at rest. with PVC's. Septal infarct, age undetermined. Marked ST abnormality. Stress ECG A peak heart rate of 151 bpm was achieved, 106% PMHR. The patient's peak stress blood pressure was 216/86 mmHg. Stress ECG is negative for ischemia. No abnormal ST/T wave changes with stress. Arrhythmias Occasional PVCs during recovery. Termination Reason: Reached target heart rate or workload, Maximal effort/unable to continue, Leg fatigue Total Time: 6 min : 3 sec Exercise Response : Angina Score: None : Total METS: 7.1 : Functional Capacity: average Heart Rate Response : Resting HR (bpm): 82 : Peak HR (bpm): 151 : Max Predicted HR (bpm): 143 : % of Max Predicted HR: 106 % : Target HR (bpm): 122 Blood Pressure Response : Rest Sys. BP (mmHg): 153 : Rest Diast. BP (mmHg): 103 : Peak Sys. BP (mmHg): 216 : Peak John. BP (mmHg): 86 : Max Rate Pressure Product (bpm*mmHg): 32,616 Report Signatures Finalized by Verito Callahan on 01/23/2024 06:50 PM Procedure Note Verito Callahan, DO - 01/23/2024 Patient Info Name: Eneida Traylor Age: 78 years : 1945 Gender: Male Ht: 72 in Wt: 169 lb BSA: 1.97 m2 HR: 75 bpm BP: 153 / 103 mmHg Heart Rhythm: marked ST abnormality, Atrial Flutter, with variable AVblock with premature ventricular contractions, Septal infarct, ageundetermined. Exam Date: 01/22/2024 11:45 AM Patient Status: O/P Study Site: [facility] Primary Location: [facility] EStudy Info Exam Type: STRESS TEST Indications I25.10 - Coronary artery disease involving [place] heart withoutangina pectoris, unspecified vessel or lesion type Z01.810 - Preop cardiovascular exam Z95.5 - Stented coronary artery Procedure(s) * Treadmill stress test was performed. Staff Referring Physician: Galo Kemp Ordering Provider: Galo Kemp Attending Physician: Galo Kemp Nurse: Jared Arroyo Exercise Physician: Verito Callahan Stress Staff: Jared Almeida Summary * Indication for the stress test, coronary artery disease, history ofstent, preop clearance. * Normal ST segment response to stress. * A peak heart rate of 151 bpm was achieved, 106% PMHR. * No chest discomfort with stress test. * No ischemic EKG changes during treadmill nuclear stress. * Stress ECG is negative for ischemia. * Nuclear test results to follow. Protocol: Santi Stress ECG Details Stage: Rest Duration (min): --- Speed (mph): --- Grade (%): --- HR (bpm): 75 SBP (mmHg): 153 DBP (mmHg): 103 METS: --- Symptoms: None Stage: 1 Duration (min): 3 min : 0 sec Speed (mph): 1.7 Grade (%): 10 HR (bpm): 120 SBP (mmHg): 213 DBP (mmHg): 83 METS: --- Symptoms: None Stage: 2 Duration (min): 3 min : 0 sec Speed (mph): 2.5 Grade (%): 12 HR (bpm): 150 SBP (mmHg): 216 DBP (mmHg): 86 METS: --- Comments: PEAK/LEG FATIGUE Stage: Recovery Duration (min): 2 min : 0 sec Speed (mph): --- Grade (%): --- HR (bpm): 103 SBP (mmHg): 187 DBP (mmHg): 82 METS: --- Symptoms: None Stage: Recovery Duration (min): 5 min : 0 sec Speed (mph): --- Grade (%): --- HR (bpm): 82 SBP (mmHg): 184 DBP (mmHg): 80 METS: --- Symptoms: None Target HR Summary: Test terminated after reaching maximum heart rate BP Response: Patient exhibited a hypertensive response with stress Cardiac Symptoms: None Resting ECG Atrial flutter at rest. with PVC's. Septal infarct, age undetermined.Marked ST abnormality. Stress ECG A peak heart rate of 151 bpm was achieved, 106% PMHR. The patient'speak stress blood pressure was 216/86 mmHg. Stress ECG is negative forischemia. No abnormal ST/T wave changes with stress. Arrhythmias Occasional PVCs during recovery. Termination Reason: Reached target heart rate or workload, Maximal effort/unable to continue, Leg fatigue Total Time: 6 min : 3 sec Exercise Response : Angina Score: None : Total METS: 7.1 : Functional Capacity: average Heart Rate Response : Resting HR (bpm): 82 : Peak HR (bpm): 151 : Max Predicted HR (bpm): 143 : % of Max Predicted HR: 106 % : Target HR (bpm): 122 Blood Pressure Response : Rest Sys. BP (mmHg): 153 : Rest Diast. BP (mmHg): 103 : Peak Sys. BP (mmHg): 216 : Peak John. BP (mmHg): 86 : Max Rate Pressure Product (bpm*mmHg): 32,616 Report Signatures Finalized by Verito Callahan on 01/23/2024 06:50 PM Galo Kemp MD CARDIAC SERVICES CU PID * VAS Carotid Duplex Bilateral (01/22/2024 11:07 AM CDT) Anatomical Region Laterality Modality Neck Ultrasound 01/22/2024 11:3 2 AM CDT Narrative Procedure Note Drew Rodriguez MD - 01/24/2024 [facility] [place] [address] [employer]/heart Carotid Ultrasound Report Pat.Name: ENEIDA TRAYLOR Claus Emerson.ID: [id number] .Date: 01/22/2024 Refer.MD: NEELAM Quan Exam Time: 11:32:00 AM Study Type:Carotid Age: 3 1945,78Y Sex: MALE Sonogrphr: Mary Ann Sifuentes, RDCS, RVT CPT - 4: 82500 Reason for Study: Stenosis of left carotid artery History / Clinical: Diabetes, Coronary artery disease, Pure hypercholesterolemia, History of coronary artery stent placement Left-sided carotid artery disease Procedures: Carotid Duplex - Bilateral Race: Not or Visit ID: [id number] ++++++++++++++++++++++++++++++++++++ SUMMARY: ++++++++++++++++++++++++++++++++++++ Extensive calcified plaques noted in the bulb and both internal carotid arteries. In the right proximal internal carotid artery, there is a large calcified plaque with significantly decreased velocities reaching 199 centimeter/seconds suggestive of around 50-69% stenosis. no hemodynamically significant stenosis in the left side. Drew Wall MD, [facility], Vascular & Interventional radiologist, reviewed the images and reported the study. ++++++++++++++++++++++++++++++++++++ FINDINGS: ++++++++++++++++++++++++++++++++++++ Procedure: The extracranial carotid systems were examined bilaterally with duplex and color flow imaging as well as spectral Doppler analysis. Study Quality: This study is of adequate technical quality. Rt CCA: Mixed calcified and dense plaque visualized throughout common carotid artery. Rt Bulb: Mixed calcified and dense plaque noted in right bulb. Rt ICA: There is irregular, heterogenous plaque in the proximal ICA. Rt ECA: Mixed calcified and dense plaque visualized within the right external carotid artery. Rt Vert: Antegrade flow within the right vertebral Artery. Lt CCA: Mixed calcified and dense plaque visualized throughout common carotid artery. Lt Bulb: Calcified plaque noted in left bulb. Lt ICA: Mixed calcified and dense plaque visualized within the proximal left ICA. Lt ECA: Calcified plaque visualized within the left external carotid artery. Lt Vert: Antegrade flow within the left vertebral Artery. ++++++++++++++++++++++++++++++++++++ MEASUREMENTS: ++++++++++++++++++++++++++++++++++++ DOPPLER Left CCA Dist CCA Dist PSV 109 cm/s CCA Dist EDV 17.2 cm/s Left CCA Prox CCA Prox PSV 92.8 cm/s CCA Prox EDV 16.6 cm/s Left ECA Prox ECA Prox PSV 162 cm/s ECA Prox EDV 15 cm/s Left ICA Dist ICA Dist PSV 118 cm/s ICA Dist EDV 38.2 cm/s Left ICA Mid ICA Mid PSV 112 cm/s ICA Mid EDV 31.7 cm/s Left ICA Prox ICA Prox PSV 156 cm/s ICA Prox EDV 46.2 cm/s Left ICA/CCA ICA/CCA PSV 1.42 Left Vertebral Vertebral PSV 95.5 cm/s Right CCA Dist CCA Dist PSV 67 cm/s CCA Dist EDV 12.7 cm/s Right CCA Prox CCA Prox PSV 81.6 cm/s CCA Prox EDV 11.9 cm/s Right ECA Prox ECA Prox PSV 206 cm/s ECA Prox EDV 8.5 cm/s Right ICA Dist ICA Dist PSV 80.2 cm/s ICA Dist EDV 20.4 cm/s Right ICA Mid ICA Mid PSV 144 cm/s ICA Mid EDV 39 cm/s Right ICA Prox ICA Prox PSV 199 cm/s ICA Prox EDV 55.7 cm/s Right ICA/CCA ICA/CCA PSV 2.96 Right Vertebral Vertebral PSV 74 cm/s Signed 01/24/2024 03:21 PM Drew Cervantes MD Galo Kemp MD VASCULAR LAB ORDERA BLES * EKG 12-LEAD (12/25/2023 9:04 AM CDT) Ventricular Rate 79 BPM [facility] Atrial Rate 237 BPM [facility] QRS Duration ms 110 ms [facility] Q-T Interval ms 390 ms [facility] QTC Calculation (Bezet) 447 ms [facility] Calculated P [place] -94 degrees [facility] Calculated R [place] -50 degrees [facility] Calculated T [place] 101 degrees [facility] Interpretation EKG ATRIAL FLUTTER WITH VARIABLE A-V BLOCK LEFT ANTERIOR FASCICULAR BLOCK SEPTAL INFARCT , AGE UNDETERMINED ABNORMAL ECG no proor tracings Confirmed by MD NEELAM, GALO Longoria ([id number]) on 01/14/2024 8:16:22 AM [facility] MUSE 12/25/2023 9:04 AM CDT 01/14/2024 8:16 AM CDT Galo Kemp MD ECG ORDERABLES [facility] MUSE * VASCULAR LAB ORDER (08/29/2022) Anatomical Region Laterality Modality Other 08/29/2022 Narrative 08/29/2022 Ordered by an unspecified provider. Scanned Document VASCULAR LAB ORDERAB LES * ECHO STRESS EXERCISE COLOR FLOW AND DOPPLER W CONTRAST (08/10/2022 3:39 PM CDT) BSA 1.94 m2 [facility] CV FUJ I PACS Target HR 122 bpm [facility] CV FUJ I PACS Max Age Predicted HR 144 bpm [facility] CV FUJI PACS Base ST Depression (mm) 0 mm [facility] CV FUJI PACS Angina Index 0 [facility] CV FUJI PACS Exercise duration (min) 4 min [facility] CV FUJI PACS Exercise duration (sec) 34 sec [facility] CV FUJI PACS Peak METS Achieved 7.0 METS [facility] CV FUJI PACS Target HR Percent 107 % [facility] CV FUJI PACS Baseline HR 65 bpm [facility] CV F UJI PACS Stress peak HR 131 bpm SSM C V FUJI PACS Max HR Percent 91 % [facility] C V FUJI PACS Baseline BP 154/79 mmHg [facility] CV F UJI PACS Post peak BP 180/80 mmHg [facility] CV FUJI PACS Actual / Predicted METS 110.4 % [facility] CV FUJI PACS Anatomical Region Laterality Modality Ultrasound Narrative 08/10/2022 4:40 PM CDT Left Ventricle: Left ventricle size is normal. The EF by visual approximation is 55 - 60%. Normal wall motion. Stress: A Santi protocol stress test was performed. The patient reached stage 2 of the protocol after exercising for 4 min and 34 sec had a maximal HR of 131 bpm (91 % of MPHR) 7.0 METS. The patient experienced no angina during the test. Resting ECG: Baseline ECG with atrial flutter. Resting ECG shows no clinically relevant ST-segment deviation. Stress ECG: The ECG was negative for ischemia. Baseline ECG with atrial flutter Patient achieve target heart rate, 91 percent predicted max heart rate No chest pain at peak stress. No stress-induced wall motion abnormalities Negative stress echo Left Ventricle Left ventricle size is normal. The EF by visual approximation is 55 - 60%. Normal wall motion. Right Ventricle Right ventricle size is normal. Normal systolic function. Mitral Valve Valve structure is normal. No restricted motion. Trace regurgitation. Aortic Valve Valve structure is trileaflet. Study Details Study quality was good. A limited 2D, color Doppler and spectral Doppler echocardiogram was performed. The apical and parasternal views were obtained. Definity ultrasound enhancing agent used. Resting ECG Baseline ECG with atrial flutter. Resting ECG shows no clinically relevant ST- segment deviation. Stress Findings A Santi protocol stress test was performed. Overall, the patient's exercise capacity was moderately impaired for their age. The patient reached stage 2 of the protocol after exercising for 4 min and 34 sec had a maximal HR of 131 bpm (91 % of MPHR) 7.0 METS. The patient experienced no angina during the test. The test was stopped because the patient experienced fatigue and dyspnea. The patient reported dyspnea and fatigue during the stress test. Symptoms ended during recovery. Blood pressure demonstrated a normal response and heart rate demonstrated a normal response to stress. The patient's heart rate recovery was normal. Stress ECG The ECG was negative for ischemia. Echo Post Stress Left ventricle cavity appears normal post-stress. The left ventricle systolic function is normal post-stress. The post-stress echo showed normal wall motion. Study Impression The study is normal. Procedure Note Verito Callahan, DO - 08/10/2022 Left Ventricle: Left ventricle size is normal. The EF by visualapproximation is 55 - 60%. Normal wall motion. Stress: A Santi protocol stress test was performed. The patient reachedstage 2 of the protocol after exercising for 4 min and 34 sec had amaximal HR of 131 bpm (91 % of MPHR) 7.0 METS. The patient experienced noangina during the test. Resting ECG: Baseline ECG with atrial flutter. Resting ECG shows noclinically relevant ST-segment deviation. Stress ECG: The ECG was negative for ischemia. Baseline ECG with atrial flutter Patient achieve target heart rate, 91 percent predicted max heart rate No chest pain at peak stress. No stress-induced wall motion abnormalities Negative stress echo Galo Kemp MD ECHO CUPID * IMAGING RADIOLOGY XRAY RESULTS ORDER (08/07/2022) Only the most recent of5 resultswithin the time period is included. Anatomical Region Laterality Modality Other 08/07/2022 Narrative 08/07/2022 Ordered by an unspecified provider. Scanned Document IMAGING * LAB RESULTS ORDER (11/24/2021) 11/24/2021 Narrative 11/24/2021 Ordered by an unspecified provider. Scanned Document LAB - THERAPEUTIC DR ARMANDO MONITORING ORDERABLES * (ABNORMAL) HEMOGLOBIN A1C (10/19/2015 9:19 AM CDT) Hemoglobin A1c 8.7(H) <5.7 % of total Hgb [facility] ([facility]) Comment: According to ADA guidelines, hemoglobin A1c <7.0% represents optimal control in non- diabetic patients. Different metrics may apply to specific patient populations. Standards of Medical Care in Diabetes-2013. Diabetes Care. 2013;36:s11-s66 For the purpose of screening for the presence of diabetes <5.7% Consistent with the absence of diabetes 5.7-6.4% Consistent with increased risk for diabetes (prediabetes) >or=6.5% Consistent with diabetes This assay result is consistent with diabetes mellitus. Currently, no consensus exists for use of hemoglobin A1c for diagnosis of diabetes for children. REPORT COMMENT: FASTING:YES Test Performed at: [facility] [address] [facility] [place] [address] URMILA FUCHS DO,MPH Blood specimen (specimen) BLOOD SPECIMEN / Unknown 10/19/2015 9:19 AM CDT 10/19/2015 9:20 AM CDT Eneida Jones MD LAB - CHEMISTRY JACOB NUNEZ Performing Organization Address City/[facility]/ZIP Co de Phone Number [facility] ([facility]) * (ABNORMAL) BASIC METABOLIC PANEL (CALCIUM TOTAL) (10/19/2015 9:19 AM CDT) Glucose 184(H) 65 - 99 mg/dL [facility] ([facility]) Comment: Fasting reference interval BUN 20 7 - 25 mg/dL [facility] [facility]) Creatinine 1.07 0.70 - 1.25 mg/dL [facility] ([facility]) Comment: For patients >49 years of age, the reference limit for Creatinine is approximately 13% higher for people identified as -Chinese. BUN/Creatinine Ratio NOT APPLICABLE 6 - 22 (calc) [facility] ([facility]) Sodium 138 135 - 146 mmol/L [facility] ([facility]) Potassium 4.4 3.5 - 5.3 mmol/L [facility] ([facility]) Chloride 103 98 - 110 mmol/L [facility] ([facility]) CO2 25 19 - 30 mmol/L [facility] ([facility]) Calcium 9.3 8.6 - 10.3 mg/dL [facility] ([facility]) Comment: Test Performed at: [employer] [address] [place] [address] URMILA FUCHS DO,MPH Blood specimen (specimen) BLOOD SPECIMEN / Unknown 10/19/2015 9:19 AM CDT 10/19/2015 9:20 AM CDT Eneida Jones MD LAB - CHEMISTRY JACOB NUNEZ Performing Organization Address City/[facility]/ZIP Co de Phone Number [facility] ([facility]) * (ABNORMAL) VITAMIN D 25-HYDROXY D2+D3 BY TANDEM MASS (06/06/2015 11:08 AM SERVICE DESK DIRECTOR) Vitamin D, 25 Hydroxy Total 20(L) 30 - 100 ng/mL [facility] ([facility]) Comment: Vitamin D Status 25-OH Vitamin D: Deficiency: <20 ng/mL Insufficiency: 20 - 29 ng/mL Optimal: > or = 30 ng/mL For 25-OH Vitamin D testing on patients on D2-supplementation and patients for whom quantitation of D2 and D3 fractions is required, the QuestAssureD(TM) 25-OH VIT D, (D2,D3), LC/MS/MS is recommended: order code 92644 (patients >2yrs). For more information on this test, go to: http://education.School of Everything/faq/JUB300 (This link is being provided for informational/educational purposes only.) REPORT COMMENT: FASTING:YES Test Performed at: [employer] [address] URMILA FUCHS DO,MPH Blood specimen (specimen) BLOOD SPECIMEN / Unknown 06/06/2015 11:08 AM SERVICE DESK DIRECTOR 06/06/2015 11:09 AM SERVICE DESK DIRECTOR Eneida Jones MD LAB - CHEMISTRY JACOB NUNEZ Performing Organization Address [facility] Co de Phone Number [email or web address] ([facility]) * PTH INTACT W/O CALCIUM (06/06/2015 11:08 AM SERVICE DESK DIRECTOR) PTH 27 14 - 64 pg/mL [email or web address] ([facility]) Comment: Interpretive Guide Intact PTH Calcium ------- Normal Parathyroid Normal Normal Hypoparathyroidism Low or Low Normal Low Hyperparathyroidism Primary Normal or High High Secondary High Normal or Low Tertiary High High Non-Parathyroid Hypercalcemia Low or Low Normal High Test Performed at: [employer] [address] URMILA FUCHS DO,MPH Blood specimen (specimen) BLOOD SPECIMEN / Unknown 06/06/2015 11:08 AM SERVICE DESK DIRECTOR 06/06/2015 11:09 AM SERVICE DESK DIRECTOR Eneida Jones MD LAB - CHEMISTRY JACOB NUNEZ Performing Organization Address [facility]/ZIP Co de Phone Number [email or web address] ([facility]) * C-PEPTIDE (06/06/2015 11:08 AM SERVICE DESK DIRECTOR) Pathologist [facility] C-Peptide 1.15 0.80 - 3.85 ng/mL [facility] ([facility]) Comment: Test Performed at: [employer] [place] [address] [facility] [place] [address] URMILA FUCHS DO,MPH Blood specimen (specimen) BLOOD SPECIMEN / Unknown 06/06/2015 11:08 AM SERVICE DESK DIRECTOR 06/06/2015 11:09 AM SERVICE DESK DIRECTOR Eneida Jones MD LAB - CHEMISTRY JACOB NUNEZ [facility] ([facility]) * (ABNORMAL) COMPREHENSIVE METABOLIC PANEL (06/06/2015 11:08 AM SERVICE DESK DIRECTOR) [facility] Glucose 199(H) 65 - 99 mg/dL [facility] ([facility]) Comment: Fasting reference interval BUN 18 7 - 25 mg/dL [facility] ([facility]) Creatinine 1.24 0.70 - 1.25 mg/dL [facility] ([facility]) Comment: For patients >49 years of age, the reference limit for Creatinine is approximately 13% higher for people identified as -Chinese. eGFR non- 59(L) > OR = 60 mL/min/1 .73m2 [facility] ([facility]) eGFR 69 > OR = 60 mL/min/1 .73m2 [facility] ([facility]) BUN/Creatinine Ratio NOT APPLICABLE 6 - 22 (calc) [facility] ([facility]) Sodium 137 135 - 146 mmol/L [facility] ([facility]) Potassium 4.3 3.5 - 5.3 mmol/L [facility] ([facility]) Chloride 101 98 - 110 mmol/L [facility] ([facility]) CO2 26 19 - 30 mmol/L [facility] ([facility]) Calcium 9.6 8.6 - 10.3 mg/dL [facility] ([facility]) Protein Total 7.4 6.1 - 8.1 g/dL [facility] ([facility]) Albumin 4.4 3.6 - 5.1 g/dL [facility] ([facility]) Globulin 3.0 1.9 - 3.7 g/dL (calc) [facility] ([facility]) Albumin/Globulin Ratio 1.5 1.0 - 2.5 (calc) [facility] ([facility]) Bilirubin Total 0.6 0.2 - 1.2 mg/dL [facility] ([facility]) Alkaline Phosphatase 64 40 - 115 U/L [facility] ([facility]) AST 15 10 - 35 U/L [facility] ([facility]) ALT 19 9 - 46 U/L [facility] ([facility]) Comment: Test Performed at: [employer] [facility] [place] [address] URMILA FUCHS DO,MPH Blood specimen (specimen) BLOOD SPECIMEN / Unknown 06/06/2015 11:08 AM SERVICE DESK DIRECTOR 06/06/2015 11:09 AM SERVICE DESK DIRECTOR Eneida Jones MD LAB - CHEMISTRY JACOB NUNEZ Performing Organization Address [facility] de Phone Number [facility] ([facility]) * CALCIUM URINE RANDOM (06/06/2015 11:08 AM SERVICE DESK DIRECTOR) Pathologist [facility] Calcium/Creatini ne Ratio 78 10 - 240 mg/g creat [facility] ([facility]) Calcium Urine 11.8 mg/dL [facility] ([facility]) Comment: Reference Range Not established Test Performed at: [facility] [place] [address] URMILA FUCHS DO,MPH Creatinine Urine 152 20 - 370 mg/dL [facility] ([facility]) Urine specimen (specimen) URINE / Unknown 06/06/2015 11:08 AM SERVICE DESK DIRECTOR 06/06/2015 11:09 AM SERVICE DESK DIRECTOR Eneida Jones MD LAB - URINE CHEMISTR Y ORDERABLES Performing Organization Address [facility] de Phone Number [facility] ([facility]) * TSH (06/06/2015 11:08 AM SERVICE DESK DIRECTOR) Pathologist [facility] TSH 1.18 0.40 - 4.50 mIU/L [facility] ([facility]) Comment: Test Performed at: [place] [address] URMILA FUCHS DO,MPH Blood specimen (specimen) BLOOD SPECIMEN / Unknown 06/06/2015 11:08 AM SERVICE DESK DIRECTOR 06/06/2015 11:09 AM SERVICE DESK DIRECTOR Eneida Jones MD LAB - CHEMISTRY JACOB NUNEZ [place] ([facility]) * VITAMIN B12 (06/06/2015 11:07 AM SERVICE DESK DIRECTOR) Vitamin B12 826 200 - 1,100 pg/mL [facility] ([facility]) Comment: REPORT COMMENT: FASTING:YES Test Performed at: [facility] [address] [place] [address] URMILA FUCHS DO,MPH Blood specimen (specimen) BLOOD SPECIMEN / Unknown 06/06/2015 11:07 AM SERVICE DESK DIRECTOR 06/06/2015 11:07 AM SERVICE DESK DIRECTOR Eneida Jones MD LAB - CHEMISTRY JACOB NUNEZ [place] ([facility]) * VAS CAROTID DUPLEX LTD (08/15/2012) Anatomical Region Laterality Modality Neck Other Scanned Document VASCULAR LAB ORDERAB LES Care Teams Floor Space Allocator Relationship Specialty Start Date End Date Nuno Cavazos MD [address] [place] [phone] PCP - General Internal Medicine 08/10/22 Galo Kemp MD [address] [facility] [address] [place] [address] Wood Lather Cardiovascular Disease 10/20/20
--- OUTSIDE RECORDS SUMMARY | 2024-06-30 09:17 | XMS_ITS | Clinical Summary ---
Author Organization [facility] Address [address] [place] [address] Care Team Providers Care Hospitality Housekeeper Name Role Phone Nuno Cavazos MD Primary Care Provider [phone] Social History Tobacco Use Types Packs/Day Years Used Date Smoking Tobacco: Never Assessed Sex and Gender Information Value Date Recorded Sex Assigned at Male 01/04/2023 12:10 PM CDT Legal Sex Male 5:16 PM CDT Gender Identity Male 01/04/2023 12:10 PM CDT Sexual Orientation Straight 01/04/2023 12 :10 PM CDT Plan of Treatment Health Maintenance Due Date Last Done Comments Hepatitis C 1963 DTaP, Tdap and Td Vaccines (1 - Tdap) 1965 Zoster Vaccines (1 of 2) 1996 Annual Medicare Wellness Visit 07/04/2011 Pneumococcal Vaccine: 65+ Years (1 of 1 - PCV) 07/04/2011 RSV Immunization or 60+ Years (1 - 1-dose 75+ series) 2021 COVID-19 Vaccine (5 - season) 2023 04/19/2022, 03/31/2021, 07/14/2020, Additional history exists Influenza Adult (#1) 2024 05/01/2019 PHQ-2 (Physician [place]) 04/22/2024 Meningococcal B Vaccine Aged Out No l onger eligible based on patient's age to complete this topic Meningococcal Vaccine Aged Out No bridgette esperanza eligible based on patient's age to complete this topic RSV Immunizations Under 20 Months Aged Out No longer eligible based on patient's age to complete this topic Insurance MEDICARE [facility] Care Teams Hospitality Housekeeper Relationship Specialty Start Date End Date Nuno Cavazos MD [address] [place] [id number] PCP - General INTERNAL MEDICINE 04/27/21
--- OUTSIDE RECORDS SUMMARY | 2024-06-30 09:17 | XMS_ITS | Referral Summary ---
Author Organization [facility] Address [address] [place] [address] Care Team Providers Care Spinning Frame Cleaner Name Role Phone Gerardo Kemp MD Unavailable [phone] Nuno Cavazos MD Primary Care Provider [phone] Source Comments [facility],non-owned Affiliates and Associated Physician Practices is amultiple site organization consisting of ambulatory clinics and hospital sitesin [place], [place], [place] and [place]. This disclosure is being madepursuant to the Care Everywhere program and may not contain all information available regarding this patient. Last updated 18.[facility] Allergies Active Allergy Reactions Criticality Noted Date Comments Atorvastatin Other Medium 10/20/2020 Isosorbide Dizziness,Other Low 10/20/2020 Medications * Be aware that medications may not be up to date on this document. Alwaysverify current medications with the patient. Medication Sig Dispensed Refills Start Date End Date Status Cholecalciferol 25 MCG (1000 UT) Take 1 (one) tablet by mouth once daily Active aspirin (ASPIRIN) 325 MG tablet Take 1 (one) tablet by mouth once daily Active calcium polycarbophil (FIBERCON) 625 MG tablet Take by mouth at bedtime Active folic acid (FOLVITE) 1 MG tablet Take 1 (one) tablet by mouth once daily Active Basaglar KwikPen (BASAGLAR) pen Inject subcutaneously at bedtime Active LORazepam (ATIVAN) 0.5 MG tablet Take 0.5 mg by mouth every 8 hours as needed for Anxiety Active Cyanocobalamin (VITAMIN B-12 1000 MCG) 1000 MCG SUBL Active [place]-3 1000 MG Active rosuvastatin (Crestor) 5 MG tablet Take 1 (one) tablet by mouth once daily Active empaglifozin-metFOR MIN ER 24hr (SYNJARDY XR) 25-1000 MG tablet Take 1 (one) tablet by mouth once daily Active tamsulosin (FLOMAX) 0.4 MG capsule Take 2 (two) capsules by mouth once daily At the same time every day after a meal. Active ibuprofen (MOTRIN) 800 MG tablet Take 1 (one) tablet by mouth every 6 hours as needed for Pain Active B-D UF III MINI PEN NEEDLES 31G X 5 MM needle USE TO INJECT INSULIN DAILY. 09/23/2023 Active apixaban (Eliquis) 5 MG tablet Take 1 (one) tablet by mouth 2 times daily 180 tablet 3 12/25/2023 Active Active Problems Problem Noted Date Diagnosed Date Left-sided carotid artery disease 12/25/2023 Preoperative cardiovascular examination 12/25/19 24 Atrial flutter 10/20/2020 CAD in [place] artery 10/20/2020 Pure hypercholesterolemia 10/20/2020 Type 2 diabetes mellitus, [facility] long-term current use of insulin 10/20/2020 History of coronary artery stent placement 10/20 Overview (11/23/2021): ? Stents in CFX 08/15/15 and 09/03/16 Immunizations Name Administration Dates Next Due INFLUENZA VACCINE, HIGH-DOSE , QUADR. (FLUZONE HIGH-DOSE QUADRIVALENT; 65Y+), 0.7 ML (HD-IIV4) 03/11/2021,05/01/2019 Social History Tobacco Use Types Packs/Day Years [...] Mass Index 22.92 12/25/2023 9:31 AM CDT Plan of Treatment Not on file Procedures Procedure Name Priority Date/Time Associated Diagnosis Comments BASIC METABOLIC PANEL (CALCIUM TOTAL) Routine 10/19/2015 9:19 AM CDT HEMOGLOBIN A1C Routine 10/19/2015 9:19 AM CDT from Last 3 Months or Most Recently Relevant to Health Maintenance Results * (ABNORMAL) HEMOGLOBIN A1C (10/19/2015 9:19 AM CDT) Hemoglobin A1c 8.7(H) <5.7 % of total Hgb [facility] ([facility]) Comment: According to ADA guidelines, hemoglobin A1c [...] children. REPORT COMMENT: FASTING:YES Test Performed at: [facility] [address] [place] [address] URMILA FUCHS DO,MPH Blood specimen (specimen) BLOOD SPECIMEN / Unknown 10/19/2015 9:19 AM CDT 10/19/2015 9:20 AM CDT Eneida Jones MD LAB - CHEMISTRY JACOB NUNEZ [facility] * (ABNORMAL) BASIC METABOLIC PANEL (CALCIUM TOTAL) (10/19/2015 9:19 AM CDT) Glucose 184(H) 65 - 99 mg/dL [facility] ([facility]) Comment: Fasting reference interval BUN 20 7 - 25 mg/dL [facility] ([facility]) Creatinine 1.07 0.70 - 1.25 mg/dL [facility] ([facility]) Comment: For patients >49 years of age, the reference limit for Creatinine is approximately 13% higher for people identified as -Latvian. BUN/Creatinine Ratio NOT APPLICABLE 6 - 22 (calc) [facility] ([facility]) Sodium 138 135 - 146 mmol/L [facility] ([facility]) Potassium 4.4 3.5 - 5.3 mmol/L [facility] ([facility]) Chloride 103 98 - 110 mmol/L [facility] ([facility]) CO2 25 19 - 30 mmol/L [facility] ([facility]) Calcium 9.3 8.6 - 10.3 mg/dL [facility] ([facility]) Comment: Test Performed at: [facility] [address] [address] URMILA FUCHS DO,MPH Blood specimen (specimen) BLOOD SPECIMEN / Unknown 10/19/2015 9:19 AM CDT 10/19/2015 9:20 AM CDT Eneida Jones MD LAB - CHEMISTRY JACOB NUNEZ [facility]) from Last 3 Months or Most Recently Relevant to Health Maintenance Care Teams Spinning Frame Cleaner Relationship Specialty Start Date End Date Nuno Cavazos MD [address] [place] [phone] PCP - General Internal Medicine 08/10/22 Gerardo Kemp MD [address] [facility] [address] [place] [address] Freedom Of Information Officer Cardiovascular Disease 10/20/20
--- OUTSIDE RECORDS SUMMARY | 2024-06-30 09:17 | XMS_ITS | Clinical Summary ---
Author Organization [facility] Address [address] [place] [address] Care Team Providers Care Hospital Security Officer Name Role Phone Gerardo Kemp MD Unavailable [phone] Nuno Cavazos MD Primary Care Provider [phone] Source Comments [facility],non-owned Affiliates and Associated Physician Practices is amultiple site organization consisting of ambulatory clinics and hospital sitesin [place], [place], [place] and [place]. This disclosure is being madepursuant to the Care Everywhere program and may not contain all information available regarding this patient. Last updated 18.[facility] Allergies Active Allergy Reactions Criticality Noted Date [...] B-12 1000 MCG) 1000 MCG SUBL Active [place]-3 1000 MG Active rosuvastatin (Crestor) 5 MG [...] 12/25/19 24 Atrial flutter 10/20/2020 CAD in [place] artery 10/20/2020 Pure hypercholesterolemia 10/20/2020 Type 2 diabetes mellitus, [facility] long-term current use of insulin 10/20/2020 History of coronary artery stent placement 10/20 Overview (11/23/2021): ? Stents in CFX 08/15/15 and 09/03/16 Immunizations Name Administration Dates Next Due INFLUENZA VACCINE, HIGH-DOSE , QUADR. (FLUZONE HIGH-DOSE QUADRIVALENT; 65Y+), 0.7 ML (HD-IIV4) 03/11/2021,05/01/2019 Family History Medical History Relation Name Comments Cancer Father lung Cancer Mother rectal Relation Name Status Comments Father Mother Social History Tobacco Use Types Packs/Day Years [...] 12/25/2023 9:31 AM CDT Plan of Treatment Health Maintenance Due Date Last Done Comments MEDICARE AWV 12 MONTHS 1945 HEPATITIS C SCREENING 06/28/1963 DTAP/TDAP/TD VACCINES (1 - Tdap) 1965 PNEUMOCOCCAL VACCINE 50+ (1 of 2 - PCV) 1965 ZOSTER VACCINE (1 of 2) 1996 DIABETES-SERUM CREATININE 10/18/20162015, 06/06/2015 DIABETES RETINOPATHY SCREENING 07/22/2017 DIABETES-FOOT EXAM WITH MONOFILAMENT 07/22/2017 DIABETES-HGB A1C 04/29/2020 01/28/2020, 10/19/2015 Respiratory Syncytial Virus (RSV) Vaccine Pt: or over 60 yrs (1 - 1-dose 75+ series) 2021 COVID-19 VACCINE (2 - 2023-2 5 season) 2023 06/16/2020 INFLUENZA VACCINE (#1) 2023 , 05/01/2019 DEPRESSION SCREENING 04/22/2024 12/25/2023 DIABETES - URINE PROTEIN SCREENING 04/22/2024 12/24/2023, 06/08/2022, 02/07/2021 HEPATITIS B VACCINE Aged Out No longe r eligible based on patient's age to complete this topic HIB VACCINE Aged Out No longer eligi ble based on patient's age to complete this topic HPV VACCINE Aged Out No longer eligi ble based on patient's age to complete this topic MENINGOCOCCAL (Group B) VACCINE Aged Out No longer eligible b ased on patient's age to complete this topic MENINGOCOCCAL VACCINE Aged Out No bridgette esperanza eligible based on patient's age to complete this topic Procedures Procedure Name Priority Date/Time Associated Diagnosis Comments BASIC METABOLIC PANEL (CALCIUM TOTAL) Routine 10/19/2015 9:19 AM CDT HEMOGLOBIN A1C Routine 10/19/2015 9:19 AM CDT from Last 3 Months or Most Recently Relevant to Health Maintenance Results * (ABNORMAL) HEMOGLOBIN A1C (10/19/2015 9:19 AM CDT) Hemoglobin A1c 8.7(H) <5.7 % of total Hgb [facility] ([facility]) Comment: According to ADA guidelines, hemoglobin A1c [...] children. REPORT COMMENT: FASTING:YES Test Performed at: [facility] [address] [place] [address] URMILA FUCHS DO,MPH Blood specimen (specimen) BLOOD SPECIMEN / Unknown 10/19/2015 9:19 AM CDT 10/19/2015 9:20 AM CDT Eneida Jones MD LAB - CHEMISTRY JACOB NUNEZ [facility] ([facility]) * (ABNORMAL) BASIC METABOLIC PANEL (CALCIUM TOTAL) (10/19/2015 9:19 AM CDT) Glucose 184(H) 65 - 99 mg/dL [facility] ([facility]) Comment: Fasting reference interval BUN 20 7 - 25 mg/dL [facility] ([facility]) Creatinine 1.07 0.70 - 1.25 mg/dL [facility] ([facility]) Comment: For patients >49 years of age, the reference limit for Creatinine is approximately 13% higher for people identified as -Belgian. BUN/Creatinine Ratio NOT APPLICABLE 6 - 22 (calc) [facility] ([facility]) Sodium 138 135 - 146 mmol/L [facility]) Potassium 4.4 3.5 - 5.3 mmol/L [facility]) Chloride 103 98 - 110 mmol/L [facility]) CO2 25 19 - 30 mmol/L [facility]) Calcium 9.3 8.6 - 10.3 mg/dL [facility] ([facility]) Comment: Test Performed at: [facility] [id number] [place] [phone] URMILA FUCHS DO,MPH Blood specimen (specimen) BLOOD SPECIMEN / Unknown 10/19/2015 9:19 AM CDT 10/19/2015 9:20 AM CDT Eneida Jones MD LAB - CHEMISTRY JACOB NUNEZ [facility] Organization Address City/State/ZIP Co de Phone Number [facility] ([facility]) from Last 3 Months or Most Recently Relevant to Health Maintenance Care Teams Hospital Security Officer Relationship Specialty Start Date End Date Nuno Cavazos MD [address] [place] [phone] PCP - General Internal Medicine 08/10/22 Gerardo Kemp MD [address] [facility] [address] [place] [address] Inorganic Chemical Technician Cardiovascular Disease 10/20/20
--- OUTSIDE RECORDS SUMMARY | 2024-06-30 09:17 | XMS_ITS | Referral Summary ---
Author Organization [facility] Address [address] [place] [address] Care Team Providers Care Print Line Feeder Name Role Phone Nuno Cavazos MD Primary Care Provider [phone] Jerzy Watt MD Unavailable [phone] Palmer Thomas MD Unavailable [phone] Adam Dhaliwal MD Unavailable Gerardo Kemp MD Unavailable [phone] Allergies Active Allergy Reactions Criticality Noted Date [...] by mouth nightly Stopped taking on 01/02/20 1 9 Active PSYLLIUM HUSK ORALIndications:lang pplement Take [...] (01/04/2020): Added automatically from request for surgery [id number] Dehydration 12/30/2019 Ototoxic hearing loss of both [...] oncology standpoint at this point. 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 with [...] SARS-CoV-2 Monovalent Vaccination (12+ Y RS) 06/16/2020 Social History Tobacco Use Types Packs/Day Years [...] on file Legal Sex Male 2:47 AM MANAGER LVN Gender Identity Male 01/20/2021 11:13 AM CDT Sexual Orientation Straight 12/07/2019 12 :26 PM CDT Last Filed Vital Signs Vital [...] 12/24/2023 1:34 PM CDT Plan of Treatment Not on file Medical Devices Implanted Type Area Recruiter Account Manager Device Identifier Shelf Expiration Date Model / Serial / Lot [employer]O rtho [id number] Evos [id number] 16.3x1.7mm 7 Hole Low Profile Variable Angle Lock - S0 - [id number] Implanted:Qty: 1 on 01/06/2020 by Paula Maradiaga MD at [facility] Plate Right: Ankle [employer]Rich[employer]Or tho [id number] / 0 / [employer]O rtho [id number] Evos 3.5mm 20mm Self Tap Cortex Screw Bone Sterile - S0 - [id number] Implanted:Qty: 1 on 01/06/2020 by Paula Maradiaga MD at [facility] Screw Right: Ankle [employer]Or tho [id number] / 0 / [employer]/O rtho [id number] Evos 3.5mm 14mm Self Tap Cortex Screw Bone Sterile - S0 - [id number] Implanted:Qty: 2 on 01/06/2020 by Paula Maradiaga MD at [facility] Screw Right: Ankle [employer]Rich[employer]Or tho [id number] / 0 / [employer]Rich[employer]/O rtho [id number] Evos 3.5mm 12mm Self Tap Cortex Screw Bone Sterile - S0 - [id number] Implanted:Qty: 1 on 01/06/2020 by Paula Maradiaga MD at [facility] Screw Right: Ankle [employer]Rich[employer]/Or tho [id number] / 0 / [employer]Rich[employer]/O rtho [id number] Evos 3.5mm 15mm Self Tap Cortex Screw Bone Sterile - S0 - [id number] Implanted:Qty: 1 on 01/06/2020 by Paula Maradiaga MD at [facility] Screw Right: Ankle [employer]Or tho [id number] / 0 / [employer]Rich[employer]O rtho [id number] 4mm 4.5mm 16mm Self Retaining Screwdriver T8 Full Thread Screw - S0 - [id number] Implanted:Qty: 3 on 01/06/2020 by Paula Maradiaga MD at [facility] Screw Right: Ankle [employer]Rich[employer]Or tho [id number] / 0 / [employer]Rich[employer]/O rtho [id number] 4mm 4.5mm 18mm Self Retaining Screwdriver T8 Full Thread Screw - S0 - [id number] Implanted:Qty: 1 on 01/06/2020 by Paula Maradiaga MD at [facility] Screw Right: Ankle [employer]Rich[employer]/Or tho [id number] / 0 / Procedures Procedure Name Priority Date/Time Associated Diagnosis Comments HEMOGLOBIN A1C Routine 01/28/2020 3:22 PM CDT LIPID PANEL Routine 01/28/2020 3:22 PM CDT from Last 3 Months or Most Recently Relevant to Health Maintenance Results * (ABNORMAL) Hemoglobin A1c (01/28/2020 3:22 PM CDT) Hgb A1C 8.1(H) 4.0 - 5.6 % [facility] Estimated Average Glucose 186 mg/dL [facility] Comment: The ADA recommends reporting an estimated Average Glucose (eAG) with all Hemoglobin A1c results using the equation derived from a study of 507 normal and diabetic adults. Minority populations were underrepresented and children were not included. (Diabetes Care 31:4504-2861, 2008). The eAG is not equivalent to a fasting glucose. Blood specimen (specimen) 01/28/2020 3:22 PM CDT 01/28/2020 3:46 PM CDT us Pedro Luis Noe MD LAB BLOOD ORDERABLES Final Re sult [facility] Department [place] [address] * Lipid panel (01/28/2020 3:22 PM CDT) Cholesterol 148 30 - 199 mg/dL [facility] Comment: Interpretive Data Ages < or [...] revised on 2017. Triglycerides 125 <=149 mg/dL [facility] Comment: Interpretive Data Ages < or [...] revised on 2017. HDL 59 >=40 mg/dL [facility] Comment: Interpretive Data Ages < or [...] on 2017. LDL, calculated 64 <=129 mg/dL [facility] Comment: Interpretive Data Ages < or [...] revised on 2017. Non-HDL Cholesterol 89 mg/dL [facility] Comment: Interpretive Data Ages < or [...] last revised on 2017. Chol/HDL ratio 3 [facility] Blood specimen (specimen) 01/28/2020 3:22 PM CDT 01/28/2020 3:46 PM CDT us Pedro Luis Noe MD LAB BLOOD ORDERABLES Final Re sult [facility] [place] [address] from Last 3 Months or Most Recently Relevant to Health Maintenance Insurance MEDICARE [facility] MEDICARE [facility] MCR SUPPLEMENT COMMERCIAL GENERIC MEDICARE [facility] MCR SUPPLEMENT [id number] [place] [address] [facility] MCR SUPPLEMENT LUIS [place]ERT[place] [id number] MEDICARE MEDICARE [facility] MCR SUPPLEMENT Advance Directives For more information, please contact: [phone] Documents on File Type Date Recorded Patient Air Conditioning Sheet Metal Installer Expl anation ADVANCE DIRECTIVE 12/22/2019 9:26 AM Power of Production Editor-Medical * Full Code (Latest Code Status on File) Date Activated Date Inactivated Comments 01/28/2020 12:37 PM 02/01/2020 12:10 AM * Full Code Date Activated Date Inactivated Comments 12/08/2019 8:07 AM 12/08/2019 1:47 PM Care Teams Print Line Feeder Relationship Specialty Start Date End Date Nuno Cavazos MD [address] [facility] [address] [place] [address] PCP - General 02/18/17 Jerzy Watt MD [address] [facility] [address] [place] [address] Referring Physician Medical Oncology 11/07/19 Palmer Thomas MD [address] [place] [address] Referring Physician Otolaryngology 11/07/19 Adam Dhaliwal MD [address] [facility] [address] [place], [place] [id number] Radiation Oncologist Radiation Oncology 11/07/19 Gerardo Kemp MD [address] [facility] [address] [place], [place] [id number] Referring Physician Cardiovascular Disease 02/13/22
--- OUTSIDE RECORDS SUMMARY | 2024-06-30 09:17 | XMS_ITS | Encounter Summary ---
Author Organization [facility] Address [address] [place] [address] Phone Care Team Providers Care Child Support Case Officer Name Role Phone Nuno Cavazos MD Primary Care Provider [phone] Jerzy Watt MD Unavailable [phone] Julian Greer MD Unavailable Palmer Thomas MD Unavailable [phone] Adam Dhaliwal MD Unavailable Gerardo Kemp MD Unavailable [phone] Encounter Details Date Type Department Care Team (Latest Contact Info) Description 09/25/2019 Orders Only [facility] Scanning, Provider Social History Tobacco Use Types Packs/Day Years Used Date Smoking Tobacco: Never Smokeless Tobacco: Never Alcohol Use Standard Drinks/Week Comments Yes 0 (1 standard drink = 0.6 oz pur e alcohol) Sex and Gender Information Value Date Recorded Sex Assigned at Not on file Legal 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 Gender Identity Male 01/20/2021 11:13 AM CDT Sexual Orientation Straight 12/07/2019 12 :26 PM CDT documented as of this encounter Plan of Treatment Not on file documented as of this encounter Procedures Procedure Name Priority Date/Time Associated Diagnosis Comments SCAN - RADIOLOGY/IMAGING 09/25/2019 documented in this encounter Results * SCAN - RADIOLOGY/IMAGING (09/25/2019) Anatomical Region Laterality Modality Other us Provider Scanning Final Result documented in this encounter Visit Diagnoses Not on filedocumented in this encounter Care Teams Child Support Case Officer Relationship Specialty Start Date End Date Nuno Cavazos MD [address] [place] [address] PCP - General 02/18/17 Jerzy Watt MD [address] [facility] [address] [place] [address] Referring Physician Medical Oncology 11/07/19 Julian Greer MD [address] [facility] [address] [place] [address] Referring Physician Otolaryngology 11/07/19 08/13/22 Palmer Thomas MD [address] [place] [address] Referring Physician Otolaryngology 11/07/19 Adam Dhaliwal MD [address] [facility] [address] [place] [address] Radiation Oncologist Radiation Oncology 11/07/19 Gerardo Kemp MD [address] [facility] [address] [place] [address] Referring Physician Cardiovascular Disease 02/13/22 documented as of this encounter
--- OUTSIDE RECORDS SUMMARY | 2024-06-30 09:17 | XMS_ITS | Encounter Summary ---
Author Organization [facility] Address [address] [place] [address] Care Team Providers Care Kindergartner Name Role Phone Nuno Cavazos MD Primary Care Provider [phone] Jerzy Watt MD Unavailable [phone] Julian Greer MD Unavailable [phone] Palmer Thomas MD Unavailable [phone] Adam Dhaliwal MD Unavailable Gerardo Kemp MD Unavailable [phone] Encounter Details Date Type Department Care Team (Late st Contact Info) Description 06/15/2020 Telephone [facility] Radiation Oncology [address] [facility] [place] [address] Rula Jones MA Social History Tobacco Use Types Packs/Day Years Used Date Smoking Tobacco: Never Smokeless Tobacco: Never Alcohol Use Standard Drinks/Week Comments Yes 4 (1 standard drink = 0.6 oz pur e alcohol) Sex and Gender Information Value Date Recorded Sex Assigned at Not on file Legal 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 Male 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 Gender Identity Male 01/20/2021 11:13 AM CDT Sexual Orientation Straight 12/07/2019 12 :26 PM CDT documented as of this encounter Plan of Treatment Not on file documented as of this encounter Visit Diagnoses Not on filedocumented in this encounter Care Teams Kindergartner Relationship Specialty Start Date End Date Nuno Cavazos MD [address] [place] [address] PCP - General 02/18/17 Jerzy Watt MD [address] [facility] [address] [place] [address] Referring Physician Medical Oncology 11/07/19 Julian Greer MD [address] [facility] [address] [place] [address] Referring Physician Otolaryngology 11/07/19 08/13/22 Palmer Thomas MD [address] [place] [address] Referring Physician Otolaryngology 11/07/19 Adam Dhaliwal MD [address] [facility] [address] [place] [address] Radiation Oncologist Radiation Oncology 11/07/19 Gerardo Kemp MD [address] [place] [address] Referring Physician Cardiovascular Disease 02/13/22 documented as of this encounter
--- OUTSIDE RECORDS SUMMARY | 2024-06-30 09:17 | XMS_ITS | Encounter Summary ---
Author Organization [facility] Address [address] [place] [address] Care Team Providers Care Group Leader Name Role Phone Unavailable Primary Care Provider Unavailabl e Encounter Details Date Type Department Care Team (Late st Contact Info) Description 06/22/2015 Ancillary Orders [facility] Cardiology Physician [address] [address] [id number] Baljit Larson MD [address] [facility] [address] [place] [id number] Screening (Primary Dx) Social History Tobacco Use Types Packs/Day Years Used Date Smoking Tobacco: Never Assessed Sex and Gender Information Value Date Recorded Sex Assigned at Not on file Legal Sex Male 11:29 AM HEAD ORTHOPEDIC TEAM PHYSICIAN Gender Identity Not on file Sexual Orientation Not on file documented as of this encounter Plan of Treatment Not on file documented as of this encounter Visit Diagnoses Diagnosis Screening- Primary Screening for unspecified condition documented in this encounter
--- OUTSIDE RECORDS SUMMARY | 2024-06-30 09:17 | XMS_ITS | Clinical Summary ---
Author Organization [facility] Address [address] [place] [address] Phone Care Team Providers Care Contract Modeler Name Role Phone Krish Johnson DO Primary Care Provider Social History Tobacco Use Types Packs/Day Years Used Date Smoking Tobacco: Never Assessed Sex and Gender Information Value Date Recorded Sex Assigned at Not on file Legal Sex Male 7:22 AM TRAIN DIRECTOR Gender Identity Not on file Sexual Orientation Not on file Plan of Treatment Health Maintenance Due Date Last Done Comments DTAP/TDAP/TD VACCINES (1 - Tdap) 1965 PNEUMOCOCCAL VACCINE 50+ YEARS (1 of 1 - PCV) 07/03/18 97 ZOSTER VACCINE (1 of 2) 1996 RSV VACCINE (60+ or ) (1 - 1-dose 75+ series) 2021 INFLUENZA VACCINE (#1) 2023 Care Teams Contract Modeler Relationship Specialty Start Date End Date Krish Johnson DO PCP - General Internal Medicine 06/29/15
--- OUTSIDE RECORDS SUMMARY | 2024-06-30 09:17 | XMS_ITS ---
Author Organization [facility] Address [address] [place] [address] Care Team Providers Care Caregivers Homecare Name Role Phone Nuno Cavazos MD Primary Care Provider [phone] Jerzy Watt MD Unavailable [phone] Palmer Thomas MD Unavailable [phone] Adam Dhaliwal MD Unavailable Gerardo Kemp MD Unavailable Active Problems Problem Noted Date Diagnosed Date [...] (01/04/2020): Added automatically from request for surgery [id number] Dehydration 12/30/2019 Ototoxic hearing loss of both [...] oncology standpoint at this point. Atherosclerosis of [place] ar gina of both lower extremities with [...] PM CDT): Stable continue Crestor 5 mg Current Treatment and Therapy Plans No current plan information found. Past Treatment and Therapy Plans Line Care Plan Name Start Date Discontinue Date Treatment Medications Discontinue Reason Plan Provider IV MAINTENANCE THERAPY PLAN 12/09/2019 01/15/2023 No medications scheduled. Therapy Complete Jerzy Watt MD Oncology Chemotherapy Treatment Plan Name Start Date Discontinue Date Treatment Medications Discontinue Reason Plan Provider Cycles CISplatin with Concurrent Radiation 21 Day Cycles - Head and Neck 0 02/01/2020 CISplatin (PLATINOL) IVPB in 250 mL Therapy Complete Jerzy Watt MD 3 of 3 cycles started Oncology Supportive Care Plan Name Start Date Discontinue Date Treatment Medications Discontinue Reason Plan Provider Hydration Therapy Plan 01/04/2020 01/15/2023 No medications scheduled. Therapy Complete Jerzy Watt MD Radiation Treatments * Course C1_Head_Neck_20 12/09/2019 - 01/29/2020 Treatment Period Energy Fraction Dose Fractions Total Dose Plans Planned [id number] 12/09/2019 - 01/29/2020 200 35 / 7,000 Reference Points Delivered [id number] 12/09/2019 - 01/29/2020 7,000 Lifetime Dose Tracking * Chemical Lifetime Dose Automatic Entry Manual Entr y Fluoro Time 5.46 minutes 5.46 minutes 0 minutes Air kerma at the reference point (Ka,r) 59.91 mGy 5 9.91 mGy 0 mGy DLP 4,062 mGycm 4,062 mGycm 0 mGycm
== END 2024-06-30 08:48 | disposition home or self-care (01) ==
PROVIDERS: PCP Internal Medicine; Visit Provider Internal Medicine
DX: M47.812 Spondylosis without myelopathy or radiculopathy, cervical region (principal); M47.814 Spondylosis without myelopathy or radiculopathy, thoracic region; M47.816 Spondylosis without myelopathy or radiculopathy, lumbar region; N28.89 Other specified disorders of kidney and ureter; Z85.89 Personal history of malignant neoplasm of other organs and systems; Z85.819 Personal history of malignant neoplasm of unspecified site of lip, oral cavity, and pharynx; Z85.51 Personal history of malignant neoplasm of bladder
CPT/HCPCS: 78306; A9503

== ENCOUNTER 2024-09-23 14:32 | Inpatient (IN) | payer MEDICARE, SELFPAY ==
--- NOTE | ~2024-09-23 | XR_ITS ---
XR chest 1V portable 09/23/2024 15:46 Indication: Dyspnea with exertion Procedure: AP portable chest Comparison: 02/12/2024 Findings: Heart size normal. Shallow inspiration. No focal air space disease, pulmonary edema, pleura l effusion or suspected pneumothorax. Impression: 1: No acute cardiopulmonary disease. Reviewed, dictated and finalized at location A. Impression: 1: No acute cardiopulmonary disease.
[2024-09-23 14:39] VITALS: BP 173/80; PULSE 77; RESP 16; TEMP 36.2; O2SAT 99
--- NOTE | 2024-09-23 14:43 | ECG_ITS ---
Test Date: 2024-09-23 14:51:27 Measurements Intervals [place] Rate: 68 P: 0 GA: 0 QRS: -38 QRSD: 130 T: 92 QT: 384 QTc: 409 Interpretive Statements ATRIAL FLUTTER/TACHYCARDIA WITH VARIABLE RESPONSE LEFT AXIS DEVIATION INCOMPLETE RIGHT BUNDLE BRANCH BLOCK CANNOT R/O SEPTAL INFARCT, AGE INDETERMINATE BASELINE ARTIFACT- I, III, AVL ABNORMAL ECG Compared to ECG 02/11/2024 23:56:07 NO SIGNIFICANT CHANGE Electronically Signed On 09-23-2024 14:58:17 CDT by Francois Campo D.O.
--- OUTSIDE RECORDS SUMMARY | 2024-09-23 14:45 | XMS_ITS ---
Author Organization [facility] Address [address] [place] [address] Care Team Providers Care Retail Department Reset Name Role Phone Nuno Cavazos MD Primary Care Provider [phone] Jerzy Watt MD Unavailable [phone] Palmer Thomas MD Unavailable [phone] Adam Dhaliwal MD Unavailable Gerardo Kemp MD [...] (01/04/2020): Added automatically from request for surgery [id number] Dehydration 12/30/2019 Ototoxic hearing loss of both [...] oncology standpoint at this point. Atherosclerosis of [place] ar gina of both lower extremities with [...] of 3 cycles started Oncology Supportive Care Therapy Plan Plan Name Start Date Discontinue Date Treatment Medications Discontinue Reason Plan Provider Hydration Therapy Plan 01/04/2020 01/15/2023 No medications scheduled. Therapy Complete Jerzy Watt MD Radiation Treatments * Course C1_Head_Neck_20 12/09/2019 - 01/29/2020 Treatment Period Energy Fraction Dose Fractions Total Dose Plans Planned [id number] 12/09/2019 - 01/29/2020 200 35 / 7,000 Reference Points Delivered [id number] 12/09/2019 - 01/29/2020 7,000 Lifetime Dose Tracking * Chemical Lifetime Dose Automatic Entry Manual Entr y Fluoro Time 5.46 minutes 5.46 minutes 0 minutes Air kerma at the reference point (Ka,r) 59.91 mGy 5 9.91 mGy 0 mGy DLP 4,062 mGycm 4,062 mGycm 0 mGycm
--- OUTSIDE RECORDS SUMMARY | 2024-09-23 14:45 | XMS_ITS | Continuity of Care Document ---
Author Organization [facility] Address [address] [place] [address] Phone Care Team Providers Care Weld Lay Out Worker Name Role Phone Frias OD, Jitendra Unavailable Unavailable Procedures Procedure Date Office/outpatient Visit, Est Office/outpatient Visit, Est Eye Exam & Treatment Eye Exam & Treatment Refraction Advance Directives Directive Yes / No Effective Date File Name No Information Encounters Encounter Description Practice Location Reason(s) For Visit Diagnoses Date Provider Providers Copied on Encounter [place] [facility] [place] [address] [place] [address] [address], [place], [place], [id number], [place] tel:[phone] [facility] No Information 0-201 0 Frias OD Jitendra. [address], [place], [place], [facility], [place]. tel:[phone] [place]pat [place] [facility] [place] [id number] [place] [address] [address], [place], [place], [id number], [place] tel:[phone] [facility] No Information 3-200 9 Frias OD Jitendra. [address], [place], [address], [place]. tel:[phone] [facility], [address] [place] [address] [address], [place], [place], [id number], [place] tel:[phone] [facility] No Information Mar-2 7-200 8 Frias OD Jitendra. [address], [place], [address], [place]. tel:[phone] [facility], [address] [facility] [address], [place], [place], [id number], [place] tel:[phone] [facility] No Information Feb-0 6-200 7 Frias OD Jitendra. [address], [place], [address], [place]. tel:[phone] Family History Family Member Type Diagnosis Age At Onset No Information Payers Payer name Insurance type Covered libertarian ID Authoririsa bebeto(s) [facility] [id number] Social History Type Description Quantity Date Captured [...]
--- OUTSIDE RECORDS SUMMARY | 2024-09-23 14:45 | XMS_ITS | Clinical Summary ---
Author Organization [facility] Address [address] [place] [address] Care Team Providers Care Devulcanizer Head Name Role Phone Nuno Cavazos MD Primary Care Provider [phone] Jerzy Watt MD Unavailable [phone] Palmer Thomas MD Unavailable [phone] Adam Dhaliwal MD Unavailable Gerardo Kemp MD Unavailable Allergies Active Allergy Reactions Criticality Noted Date [...] (01/04/2020): Added automatically from request for surgery [id number] Dehydration 12/30/2019 Ototoxic hearing loss of both [...] oncology standpoint at this point. Atherosclerosis of [place] of both lower extremities with [...] - rotator cuff (Added by TW Conv) W[place] PRQ TRLUML CORONARY STENT W/ANGIO ONE ART/BRNCH [...] on file Legal Sex Male 2:47 AM QUALITY INTERN Gender Identity Male 01/20/2021 11:13 AM CDT [...] Fall Risk Assessment 05/25/2021 05/25/2020 Covid-19 Vaccine ( - season) 2023 Influenza Vaccine (Season Ended) 2024 01/28/20, 05/01/2019 Medical Devices Implanted Type Area Weaving Supervisor Device Identifier Shelf Expiration Date Model / Serial / Lot Crouch And Nephew/Richco/O rtho [id number] Evos [id number] 16.3x1.7mm 7 Hole Low Profile Variable Angle Lock - S0 - [id number] Implanted:Qty: 1 on 01/06/2020 by Paula Maradiaga MD at [facility] Plate Right: Ankle Crouch [employer] Nephew/Richco/Or tho [id number] / 0 / Crouch And Nephew/Richco/O rtho [id number] Evos 3.5mm 20mm Self Tap Cortex Screw Bone Sterile - S0 - [id number] Implanted:Qty: 1 on 01/06/2020 by Paula Maradiaga MD at [facility] Screw Right: Ankle Crouch [employer] Nephew/Richco/Or tho [id number] / 0 / Crouch And Nephew/Richco/O rtho [id number] Evos 3.5mm 14mm Self Tap Cortex Screw Bone Sterile - S0 - [id number] Implanted:Qty: 2 on 01/06/2020 by [facility] Screw Right: Ankle Crouch [employer] Nephew/Richco/Or tho [id number] / 0 / Crouch And Nephew/Richco/O rtho [id number] Evos 3.5mm 12mm Self Tap Cortex Screw Bone Sterile - S0 - [id number] Implanted:Qty: 1 on 01/06/2020 by Paula Maradiaga MD at [facility] Screw Right: Ankle Crouch [employer] Nephew/Richco/Or tho [id number] / 0 / Crouch And Nephew/Richco/O rtho [id number] Evos 3.5mm 15mm Self Tap Cortex Screw Bone Sterile - S0 - [id number] Implanted:Qty: 1 on 01/06/2020 by Paula Maradiaga MD at [facility] Screw Right: Ankle Crouch [employer] Nephew/Richco/Or tho [id number] / 0 / Crouch [employer] Nephew/Richco/O rtho [id number] 4mm 4.5mm 16mm Self Retaining Screwdriver T8 Full Thread Screw - S0 - [id number] Implanted:Qty: 3 on 01/06/2020 by Paula Maradiaga MD at [facility] Screw Right: Ankle Crouch [employer] Nephew/Richco/Or tho [id number] / 0 / Crouch [employer] Nephew/Richco/O rtho [id number] 4mm 4.5mm 18mm Self Retaining Screwdriver T8 Full Thread Screw - S0 - [id number] Implanted:Qty: 1 on 01/06/2020 by Paula Maradiaga MD at [facility] Screw Right: Ankle Crouch [employer] Nephew/Richco/Or tho [id number] / 0 / Procedures Procedure Name Priority Date/Time Associated Diagnosis Comments HEMOGLOBIN A1C Routine 01/28/2020 3:22 PM CDT LIPID PANEL Routine 01/28/2020 3:22 PM CDT from Last 3 Months or Most Recently Relevant to Health Maintenance Results * (ABNORMAL) Hemoglobin A1c (01/28/2020 3:22 PM CDT) Hgb A1C 8.1(H) 4.0 - 5.6 % [facility] Estimated Average Glucose 186 mg/dL [facility] Comment: The ADA recommends reporting an estimated Average Glucose (eAG) with all Hemoglobin A1c results using the equation derived from a study of 507 normal and diabetic adults. Minority populations were underrepresented and children were not included. (Diabetes Care 31:2491-6266, 2008). The eAG is not equivalent to a fasting glucose. Blood specimen (specimen) 01/28/2020 3:22 PM CDT 01/28/2020 3:46 PM CDT Pedro Luis Noe MD LAB BLOOD ORDERABLES Final Re sult [facility] One [facility] Department [place] [address] * Lipid panel (01/28/2020 3:22 PM CDT) Cholesterol 148 30 - 199 mg/dL [facility] Comment: Interpretive Data Ages < or [...] revised on 2017. Triglycerides 125 <=149 mg/dL [facility] Comment: Interpretive Data Ages < or [...] revised on 2017. HDL 59 >=40 mg/dL [facility] Comment: Interpretive Data Ages < or [...] on 2017. LDL, calculated 64 <=129 mg/dL [facility] Comment: Interpretive Data Ages < or [...] revised on 2017. Non-HDL Cholesterol 89 mg/dL [facility] Comment: Interpretive Data Ages < or [...] last revised on 2017. Chol/HDL ratio 3 [facility] Blood specimen (specimen) 01/28/2020 3:22 PM CDT 01/28/2020 3:46 PM CDT us Pedro Luis Noe MD LAB BLOOD ORDERABLES Final Re sult [facility] Department [place] [address] from Last 3 Months or Most Recently Relevant to Health Maintenance Insurance MEDICARE [facility] SUPPLEMENT MEDICARE [facility] MCR SUPPLEMENT COMMERCIAL GENERIC MEDICARE [place] [id number] COMMERCIAL GENERIC [facility] [place] [id number] MEDICARE MEDICARE [facility] MCR SUPPLEMENT LUIS ALBERTO GRUBBS [id number] Advance Directives For more information, please contact: [phone] Documents on File Type Date Recorded Patient Radio Despatcher Expl anation ADVANCE DIRECTIVE 12/22/2019 9:26 AM Power of National Business Director-Medical * Full Code (Latest Code Status on File) Date Activated Date Inactivated Comments 01/28/2020 12:37 PM 02/01/2020 12:10 AM * Full Code Date Activated Date Inactivated Comments 12/08/2019 8:07 AM 12/08/2019 1:47 PM Care Teams Devulcanizer Head Relationship Specialty Start Date End Date Nuno Cavazos MD [address] [place] [address] PCP - General 02/18/17 Jerzy Watt MD [address] [facility] [address] [place] [address] Referring Physician Medical Oncology 11/07/19 Palmer Thomas MD [address] [place] [address] Referring Physician Otolaryngology 11/07/19 Adam Dhaliwal MD [address] [facility] [address] [place] [address] Radiation Oncologist Radiation Oncology 11/07/19 Gerardo Kemp MD [address] [facility] [facility] [address] [place] [address] Referring Physician Cardiovascular Disease 02/13/22
--- OUTSIDE RECORDS SUMMARY | 2024-09-23 14:45 | XMS_ITS | Encounter Summary ---
Author Organization [facility] Address [address] [place] [address] Care Team Providers Care Band Ripsaw Operator Name Role Phone Unavailable Primary Care Provider Unavailabl e Encounter Details Date Type Department Care Team (Late st Contact Info) Description 06/22/2015 Ancillary Orders [facility] Cardiology Physician Isreal [address] [employer] [facility] [address] [place] [address] Baljit Larson MD [address] [facility] [address] [place] [address] Screening (Primary Dx) Social History Tobacco Use Types Packs/Day Years Used Date Smoking Tobacco: Never Assessed Sex and Gender Information Value Date Recorded Sex Assigned at Not on file Legal Sex Male 11:29 AM UNDERCOAT SPRAYER Gender Identity Not on file Sexual Orientation Not on file documented as of this encounter Plan of Treatment Not on file documented as of this encounter Visit Diagnoses Diagnosis Screening- Primary Screening for unspecified condition documented in this encounter
--- OUTSIDE RECORDS SUMMARY | 2024-09-23 14:45 | XMS_ITS | Clinical Summary ---
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
--- OUTSIDE RECORDS SUMMARY | 2024-09-23 14:45 | XMS_ITS | Referral Summary ---
Author Organization [facility] Address [address] [place] [address] Care Team Providers Care Air Traffic Control Supervisor Name Role Phone Nuno Cavazos MD Primary Care Provider [phone] Jerzy Watt MD Unavailable [phone] Palmer Thomas MD Unavailable [phone] Adam Dhaliwal MD Unavailable Gerardo Kemp MD [...] (01/04/2020): Added automatically from request for surgery [id number] Dehydration 12/30/2019 Ototoxic hearing loss of both [...] oncology standpoint at this point. 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 Gender Identity Male 01/20/2021 11:13 AM CDT [...] on file Medical Devices Implanted Type Area Disk Operator Device Identifier Shelf Expiration Date Model / Serial / Lot Crouch And Nephew/Richco/O rtho [id number] Evos [id number] 16.3x1.7mm 7 Hole Low Profile Variable Angle Lock - S0 - [id number] Implanted:Qty: 1 on 01/06/2020 by Paula Maradiaga MD at [facility] Plate Right: Ankle Crouch [employer] Nephew/Richco/Or tho [id number] / 0 / Crouch And Nephew/Richco/O rtho [id number] Evos 3.5mm 20mm Self Tap Cortex Screw Bone Sterile - S0 - [id number] Implanted:Qty: 1 on 01/06/2020 by Paula Maradiaga MD at [facility] Screw Right: Ankle Crouch [employer] Nephew/Richco/Or tho [id number] / 0 / Crouch And Nephew/Richco/O rtho [id number] Evos 3.5mm 14mm Self Tap Cortex Screw Bone Sterile - S0 - [id number] Implanted:Qty: 2 on 01/06/2020 by Paula Maradiaga MD at [facility] Screw Right: Ankle Crouch [employer] Nephew/Richco/Or tho [id number] / 0 / Crouch And Nephew/Richco/O rtho [id number] Evos 3.5mm 12mm Self Tap Cortex Screw Bone Sterile - S0 - [id number] Implanted:Qty: 1 on 01/06/2020 by Paula Maradiaga MD at [facility] Screw Right: Ankle Crouch [employer] Nephew/Richco/Or tho [id number] / 0 / Crouch And Nephew/Richco/O rtho [id number] Evos 3.5mm 15mm Self Tap Cortex Screw Bone Sterile - S0 - [id number] Implanted:Qty: 1 on 01/06/2020 by Paula Maradiaga MD at [facility] Screw Right: Ankle Crouch [employer] Nephew/Richco/Or tho [id number] / 0 / Crouch & Nephew/Richco/O rtho [id number] 4mm 4.5mm 16mm Self Retaining Screwdriver T8 Full Thread Screw - S0 - [id number] Implanted:Qty: 3 on 01/06/2020 by Paula Maradiaga MD at [facility] Screw Right: Ankle Crouch [employer] Nephew/Richco/Or tho [id number] / 0 / Crouch & Nephew/Richco/O rtho [id number] 4mm 4.5mm 18mm Self Retaining Screwdriver T8 Full Thread Screw - S0 - [id number] Implanted:Qty: 1 on 01/06/2020 by Paula Maradiaga MD at [facility] Screw Right: Ankle Crouch & Nephew/Richco/Or tho [id number] / 0 / Procedures Procedure Name Priority [...] and children were not included. (Diabetes Care 31:3671-9647, 2008). The eAG is not equivalent to a fasting glucose. Blood specimen (specimen) 01/28/2020 3:22 PM CDT 01/28/2020 3:46 PM CDT us Pedro Luis Noe MD LAB BLOOD ORDERABLES Final Re sult [facility] One [facility] Department [place] [address] * Lipid panel (01/28/2020 3:22 PM CDT) Cholesterol 148 30 - 199 mg/dL [facility] Comment: Interpretive Data Ages < or [...] on 2017. Triglycerides 125 <=149 mg/dL [facility] Comment: Interpretive Data Ages < or [...] on 2017. HDL 59 >=40 mg/dL [facility] Comment: Interpretive Data Ages < or [...] on 2017. LDL, calculated 64 <=129 mg/dL [facility] Comment: Interpretive Data Ages < or [...] revised on 2017. Non-HDL Cholesterol 89 mg/dL [facility] Comment: Interpretive Data Ages < or [...] last revised on 2017. Chol/HDL ratio 3 [facility] Blood specimen (specimen) 01/28/2020 3:22 PM CDT 01/28/2020 3:46 PM CDT us Pedro Luis Noe MD LAB BLOOD ORDERABLES Final Re sult [facility] One [facility] [place] [address] from Last 3 Months or Most Recently Relevant to Health Maintenance Insurance MEDICARE [facility] MEDICARE [facility] MCR SUPPLEMENT COMMERCIAL GENERIC MEDICARE [facility] MCR SUPPLEMENT LUIS ALBERTO [employer]UB[address] [id number] [place] [address] [facility] MCR SUPPLEMENT LUIS ALBERTO GRUBBS [id number] MEDICARE MEDICARE [facility] MCR SUPPLEMENT Advance Directives For more information, please contact: [phone] Documents on File Type Date Recorded Patient Lending Activities Supervisor Expl anation ADVANCE DIRECTIVE 12/22/2019 9:26 AM Power of Optometry Professor-Medical * Full Code (Latest Code Status on File) Date Activated Date Inactivated Comments 01/28/2020 12:37 PM 02/01/2020 12:10 AM * Full Code Date Activated Date Inactivated Comments 12/08/2019 8:07 AM 12/08/2019 1:47 PM Care Teams Air Traffic Control Supervisor Relationship Specialty Start Date End Date Nuno Cavazos MD [address] [facility] [address] [place] [address] PCP - General 02/18/17 Jerzy Watt MD [address] [facility] [address] [place] [address] Referring Physician Medical Oncology 11/07/19 Palmer Thomas MD [address] [place] [address] Referring Physician Otolaryngology 11/07/19 Adam Dhaliwal MD [address] [facility] # LL LL [address] [place], [place] [id number] Radiation Oncologist Radiation Oncology 11/07/19 Gerardo Kemp MD [address] [facility] [address] [place], [place] [address] Referring Physician Cardiovascular Disease 02/13/22
--- OUTSIDE RECORDS SUMMARY | 2024-09-23 14:45 | XMS_ITS | Clinical Summary ---
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
--- OUTSIDE RECORDS SUMMARY | 2024-09-23 14:45 | XMS_ITS | Clinical Summary ---
Author Organization [facility] Address [address] [place] [address] Care Team Providers Care Carriage Setter Name Role Phone Gerardo Kemp MD Unavailable [phone] Nuno Cavazos MD Primary Care Provider [phone] Source Comments [facility],non-owned Affiliates and Associated Physician Practices is amultiple site organization consisting of ambulatory clinics and hospital sitesin [place], [place], [place] and [place]. This disclosure is being madepursuant to the Care Everywhere program and may not contain all information available regarding this patient. Last updated 18.[facility] Allergies Active Allergy Reactions Criticality Noted Date Comments Atorvastatin Other Medium 10/20/2020 Isosorbide Dizziness,Other Low 10/20/2020 Medications * Be aware that medications may not be up to date on this document. Alwaysverify current medications with the patient. Cholecalciferol 25 MCG (1000 UT) Take 1 [...] B-12 1000 MCG) 1000 MCG SUBL Active Tupelo-3 1000 MG Acti ve rosuvastatin (Crestor) 5 MG tablet Take 1 (one) tablet by mouth once daily Active empaglifozin-metF ORMIN ER 24hr (SYNJARDY XR) 25-1000 MG tablet [...] MM needle USE TO INJECT INSULIN DAILY. 09/23/19 24 Active apixaban (Eliquis) 5 MG tablet Take 1 (one) tablet by mouth 2 times daily 180 tablet 3 12/25/19 24 Active Active Problems Problem Noted Date Diagnosed Date Left-sided carotid artery disease 12/25/2023 Preoperative cardiovascular examination 12/25/19 24 Atrial flutter 10/20/2020 CAD in agdaagux artery 10/20/2020 Pure hypercholesterolemia 10/20/2020 Type 2 [address], [facility] long-term current use of insulin 10/20/2020 History of coronary artery stent placement 10/20 Overview (11/23/2021): ? 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 Gender Identity Male 10/19/2020 8:07 PM CDT [...] (2 - 2023-2 5 season) 2023 06/16/2020 DEPRESSION SCREENING 04/22/2024 12/25/2023 DIABETES - URINE PROTEIN SCREENING 04/22/2024 12/24/2023, 06/08/2022, 02/07/2021 INFLUENZA VACCINE (Season Ended) 2024 03/11/2021, 05/01/2019 HEPATITIS B VACCINE Aged Out No longe r eligible based on patient's age to complete this topic HIB VACCINE Aged Out No longer eligi ble based on patient's age to complete this topic HPV VACCINE Aged Out No longer eligi ble based on patient's age to complete this topic MENINGOCOCCAL (Group B) VACCINE SHARED DECISION-MAKING Aged Out No longer eligible based on patient's age to complete this topic MENINGOCOCCAL GROUPS A/C/Y/W VACCINE Aged Out No longer eligible b [...] 8.7(H) <5.7 % of total Hgb [facility] Comment: According to ADA guidelines, hemoglobin A1c [...] children. REPORT COMMENT: FASTING:YES Test Performed at: [facility] [address] [place] [address] URMILA FUCHS DO,MPH Blood specimen (specimen) BLOOD SPECIMEN / Unknown 10/19/2015 9:19 AM CDT 10/19/2015 9:20 AM CDT Eneida Jones MD LAB - CHEMISTRY ORDERABLES Angelita loza Result [facility] [id number] * (ABNORMAL) BASIC METABOLIC PANEL (CALCIUM TOTAL) (10/19/2015 9:19 AM CDT) Glucose 184(H) 65 - 99 mg/dL [facility] Comment: Fasting reference interval BUN 20 7 - 25 mg/dL [facility] Creatinine 1.07 0.70 - 1.25 mg/dL [facility] Comment: For patients >49 years of age, the reference limit for Creatinine is approximately 13% higher for people identified as -Ukrainian. BUN/Creatinine Ratio NOT APPLICABLE 6 - 22 (calc) [facility] Sodium 138 135 - 146 mmol/L [facility] Potassium 4.4 3.5 - 5.3 mmol/L [facility] Chloride 103 98 - 110 mmol/L [facility] CO2 25 19 - 30 mmol/L [facility] Calcium 9.3 8.6 - 10.3 mg/dL [facility] Comment: Test Performed at: [facility] [address] [place] [address] URMILA FUCHS DO,MPH Blood specimen (specimen) BLOOD SPECIMEN / Unknown 10/19/2015 9:19 AM CDT 10/19/2015 9:20 AM CDT Eneida Jones MD LAB - CHEMISTRY ORDERABLES Angelita loza Result [facility] [id number] from Last 3 Months or Most Recently Relevant to Health Maintenance Insurance MEDICARE [facility] MEDICARE Care Teams Carriage Setter Relationship Specialty Start Date End Date Nuno Cavazos MD [address] [place] [address] PCP - General Internal Medicine 08/10/22 Gerardo Kemp MD [address] [facility] [address] [place] [address] Celery Packer Cardiovascular Disease 10/20/20
--- OUTSIDE RECORDS SUMMARY | 2024-09-23 14:45 | XMS_ITS | Encounter Summary ---
Author Organization [facility] Address [address] [place] [address] Care Team Providers Care Solution Make Up Operator Name Role Phone Nuno Cavazos MD Primary Care Provider [phone] Jerzy Watt MD Unavailable [phone] Julian Greer MD Unavailable Palmer Thomas MD Unavailable [phone] Adam Dhaliwal MD Unavailable Gerardo Kemp MD Unavailable [phone] Encounter Details Date Type Department Care Team (Late st Contact Info) Description 06/15/2020 Telephone [facility] Radiation Oncology [address] [facility] [place] [address] Rula Jones MA Social History Tobacco Use Types Packs/Day Years Used Date Smoking Tobacco: Never Smokeless Tobacco: Never Alcohol Use Standard Drinks/Week Comments Yes 4 (1 standard drink = 0.6 oz pur e alcohol) Sex and Gender Information Value Date Recorded Sex Assigned at Not on file 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 Gender Identity Male 01/20/2021 11:13 AM CDT Sexual Orientation Straight 12/07/2019 12 :26 PM CDT documented as of this encounter Plan of Treatment Not on file documented as of this encounter Visit Diagnoses Not on filedocumented in this encounter Care Teams Solution Make Up Operator Relationship Specialty Start Date End Date Nuno Cavazos MD [address] [place] [address] PCP - General 02/18/17 Jerzy Watt MD [address] [facility] [address] [place] [address] Referring Physician Medical Oncology 11/07/19 Julian Greer MD [address] [facility] [address] [place] [address] Referring Physician Otolaryngology 11/07/19 08/13/22 Palmer Thomas MD [address] [place] [address] Referring Physician Otolaryngology 11/07/19 Adam Dhaliwal MD [address] [facility] [address] LL [address] [place] [address] Radiation Oncologist Radiation Oncology 11/07/19 Gerardo Kemp MD [address] [place] [address] Referring Physician Cardiovascular Disease 02/13/22 documented as of this encounter
--- OUTSIDE RECORDS SUMMARY | 2024-09-23 14:45 | XMS_ITS | Encounter Summary ---
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 Gender Identity Male 01/20/2021 11:13 AM CDT [...] on filedocumented in this encounter Care Teams Heating And Ventilating Tender Relationship Specialty Start Date End Date Nuno Cavazos MD [address] [place] [address] PCP - General 02/18/17 Jerzy Watt MD [address] [facility] [address] [place] [address] Referring Physician Medical Oncology 11/07/19 Julian Greer MD [address] [facility] [address] [place] [address] Referring Physician Otolaryngology 11/07/19 08/13/22 Palmer Thomas MD [address] [place] [address] Referring Physician Otolaryngology 11/07/19 Adam Dhaliwal MD [address] [facility] [address] [place] [address] Radiation Oncologist Radiation Oncology 11/07/19 Gerardo Kemp MD [address] [facility] [address] [place] [address] Referring Physician Cardiovascular Disease 02/13/22 documented as of this encounter
[2024-09-23 14:59] LABS: Basophils Percent Auto 0.7 % (0.2-1.2); Eosinophils Absolute Auto 0.2 K/mm3 (0-0.3); Eosinophils Percent Auto 5.2 % (0-4.4); Hematocrit 44.1 % (42.0-52.0); Hemoglobin 14.3 g/dL (14.0-18.0); Immature Granulocyte Absolute 0.01 K/mm3 (0.00-0.031); Immature Granulocyte Percent A 0.2 % (0-0.5); Lymphocytes Absolute Auto 0.57 K/mm3 (0.9-3.2); Lymphocytes Percent Auto 12.4 % (18.3-44.2); Mean Corpuscular HGB Conc 32.4 g/dl (32-36); Mean Corpuscular Hemoglobin 30.7 pg (26-34); Mean Corpuscular Volume 94.6 fl (80-100); Mean Platelet Volume 10.4 fl (7.4-10.4); Monocytes Absolute Auto 0.6 K/mm3 (0.1-0.6); Monocytes Percent Auto 13.7 % (2.6-8.5); Neutrophils Absolute Auto 3.1 K/mm3 (1.3-6.7); Neutrophils Percent Auto 67.8 % (45.5-73.1); Platelet Count Result 187 k/mm3 (150-375); Red Blood Count 4.66 M/mm3 (4.6-6.20); Red Cell Distribution Width 13.8 % (11.5-14.5); White Blood Count 4.6 K/mm3 (4.5-10.0)
[2024-09-23 15:08] LABS: Alanine Aminotransferase 22 U/L (6-50); Albumin Level 4.8 g/dL (3.5-5.1); Alkaline Phosphatase 74 U/L (38-126); Anion Gap 10 mmol/L (4-12); Aspartate Amino Transferase 32 U/L (17-59); Bilirubin,Total 0.7 mg/dL (0.2-1.3); Blood Urea Nitrogen 29 mg/dL (9-20); Calcium 9.9 mg/dL (8.4-10.2); Carbon Dioxide 26 mmol/L (22-30); Chloride 103 mmol/L (98-107); Estimated CRCL calculation 48 ml/min; Estimated Glomerular Filt Rate 56; Glucose 159 mg/dL (65-110); Lipase 86 U/L (23-300); Potassium 4.8 mmol/L (3.4-5.0); Sodium 139 mmol/L (137-145); Total Protein 8.1 g/dL (6.3-8.2)
[2024-09-23 15:14] LABS: Prothrombin Time 13.1 Seconds (11.1-14.7)
[2024-09-23 15:20] LABS: Troponin I 0.118 ng/mL (0.000-0.034)
--- NOTE | 2024-09-23 15:37 | ED_ITS ---
HPI - Recheck/Abnormal Lab/Rx General Chief Complaint: Recheck/Abnormal Lab/Rx Stated Complaint: abnormal lab with pcp yesterday Time Seen by Provider: 09/23/24 15:07 History of Present Illness HPI narrative: Patient was sent by his PCP for elevated troponin, for the last 1-2 months he has been noticing increased dyspnea on exertion which has gotten worse over last few days, he is currently not having symptoms at rest. Never had any chest pain however when he was found to have a heart blockage requiring 5 stents about 10 years ago, these were the symptoms he presented with also. Has been trying to get into see a photo technician for a while. No nausea vomiting, diaphoresis Related Data Home Medications ?Medication ?Instructions ?Recorded ?Confirmed ?Last Taken ?Type mecobalamin (vitamin B12) 1,000 1,000 mcg sublingual DAILY 05/04/19 09/23/24 Unknown History mcg disintegrating tablet,sublingual omega-3 fatty acids 1,000 mg 1,000 mg PO BID 09/07/19 09/23/24 Unknown History capsule (Fish Oil Concentrate) aspirin 325 mg tablet 325 mg PO DAILY 10/22/22 09/23/24 Unknown History cholecalciferol (vitamin D3) 50 4,000 unit PO DAILY 01/31/24 09/23/24 Unknown History mcg (2,000 unit) capsule ibuprofen 200 mg capsule 400 mg PO BID PRN Pain 02/12/24 09/23/24 Unknown History calcium polycarbophil 625 mg 625 mg PO DAILY 02/21/24 09/23/24 Unknown History tablet (FiberCon) Antiva BYMOUTH 06/22/24 09/23/24 Unknown History S Alpha -Lipoic acid 600 mg BYMOUTH DAILY 06/22/24 09/23/24 Unknown History Curcumin 1320 mg daily .Route 09/01/24 09/23/24 Unknown History Allergies Allergy/AdvReac Type Severity Reaction Status Date / Time atorvastatin AdvReac Intermediate Other Verified 09/23/24 15:47 isosorbide AdvReac Intermediate Unknown Verified 09/23/24 15:47 Review of Systems 2 Review of Systems: All systems reviewed & are unremarkable except as noted in HPI and below PMFSH Past Medical History Medical History (Reviewed 09/23/24 @ 08:49 by Mini Tyler, [facility]) Abdominal bloating Abnormal finding of blood chemistry Ankle fracture, right Anxiety and depression Asbestos exposure ASHD (arteriosclerotic heart disease) >4 METs Back pain Bilateral cataracts BMI 21.0-21.9, adult BMI 22.0-22.9, adult BMI 23.0-23.9, adult BMI 24.0-24.9, adult BMI 26.0-26.9,adult Borderline abnormal TFTs Carotid stenosis Cervical spondylosis Chronic fatigue Chronic sore throat CKD (chronic kidney disease), stage II Colon cancer screening Cough COVID-19 vaccine series completed Depression Diabetes mellitus type 2, insulin dependent DJD (degenerative joint disease) Dysphagia Elevated homocysteine Elevated PSA Encounter for Medicare annual wellness exam Encounter for routine adult health examination with abnormal findings Encounter for routine adult health examination without abnormal findings Follow up Grief Gross hematuria Hearing loss History of cataract History of head and neck cancer Hospital discharge follow-up Hx of bladder cancer Hyperlipidemia Hypersomnolence Hyperventilation Hypothyroidism (acquired) Inguinal hernia Jaw pain long term (current) use of insulin Loss of appetite Mandibular pain Mastodynia of left breast Memory impairment Nocturia On longterm drug therapy Onychomycosis Oral lesion Osteonecrosis of jaw Peripheral neuropathy PTSD (post-traumatic stress disorder) PVD (peripheral vascular disease) Renal mass Right shoulder pain Squamous cell carcinoma of head and neck Thoracic spondylosis Thyroid nodule Vitamin D deficiency Surgical History Surgical History (Reviewed 09/23/24 @ 08:49 by Mini Tyler [facility]) H/O inguinal hernia repair 03/06/24 Robotic assisted laparoscopic left inguinal hernia repair with Bard 3D mid weight mesh. Dr. Morgan History of coronary artery stent placement x6, last one in 2017 S/P cataract surgery Family History Family History Father Family history of lung disease Mother Family history of malignant neoplasm of gastrointestinal tract Social History Social History (Reviewed 09/23/24 @ 08:49 by Mini Tyler [facility]) Smoking status: Never smoker Second hand tobacco smoke exposure: No Alcohol intake: current Alcohol use details: 2-3 BOTTLES PER WK Substance use: current Substance use type: marijuana Last use: 02/09/24 Lack of Transportation: No Lack of Food: Never True Current Housing: I Have Housing Concerned About Future Housing: No Difficulty Paying Gas/Electric Bills: No Difficulty Paying for Meds: No Currently Unemployed: No Education: High School Diploma/GED Living arrangements: alone Gender identity (if verbalized by the patient): Male Spiritual care concerns: No Exam 2 Narrative: EXAMINATION OF ORGAN SYSTEMS/BODY AREAS: Constitutional: Vital signs per nursing GENERAL:[No acute distress, non-toxic appearing.] HEAD: Normal with no signs of head trauma. EYES: EOMI, conjunctiva normal ENT: Hearing grossly intact LUNGS: Nonlabored breathing. HEART: [Regular rate and rhythm] ABD: [Soft], [nontender to palpation] EXT: Normal range of motion SKIN: [No rashes or lesions.] NEURO: [Alert and oriented x 3. No gross focal sensory or strength deficits.] PSYCH: Normal affect Course Vital Signs Vital signs: Vital Signs Temperature 97.2 F L 09/23/24 14:39 Pulse Rate 77 09/23/24 14:39 Respiratory Rate 16 09/23/24 14:39 Blood Pressure 173/80 H 09/23/24 14:39 Pulse Oximetry 99 09/23/24 14:39 Oxygen Delivery Room Air 09/23/24 14:39 Temperature 97.2 F L 09/23/24 14:39 Pulse Rate 67 09/23/24 15:46 Respiratory Rate 18 09/23/24 15:46 Blood Pressure 145/108 H 09/23/24 15:46 Pulse Oximetry 99 09/23/24 15:46 Oxygen Delivery Room Air 09/23/24 14:39 MDM - Recheck/Abnormal Lab/Rx MDM Narrative Medical decision making narrative: Patient has history of CAD, stents placed 2016, recent stress test in fall, started having more dyspnea on exertion worse over last 1-2 days, his PCP ordered troponins which were elevated in sent him to the ER. There elevated here, I will start him on heparin drip, discussed this with photo technician with plan for likely catheterization tomorrow. Patient currently asymptomatic. Patient agreeable to plan, discussed with hospitalist. EKG on my independent interpretation shows atrial flutter, who left axis deviation, QRS 130 QTC 409, an some slight T-wave inversions, otherwise no significant signs of ST elevations or depressions. Chest x-ray on my independent interpretation without any obvious consolidation or pneumothorax Lab Data 09/23/24 14:48 09/23/24 14:48 Labs: Lab Results 09/23/24 Range/Units 14:48 WBC 4.6 (4.5-10.0) K/mm3 RBC 4.66 (4.6-6.20) M/mm3 Hgb 14.3 (14.0-18.0) g/dL Hct 44.1 (42.0-52.0) % MCV 94.6 (80-100) fl MCH 30.7 (26-34) pg MCHC 32.4 (32-36) g/dl RDW 13.8 (11.5-14.5) % Plt Count 187 (150-375) k/mm3 MPV 10.4 (7.4-10.4) fl Immature Gran % (Auto) 0.2 (0-0.5) % Neut % (Auto) 67.8 (45.5-73.1) % Lymph % (Auto) 12.4 L (18.3-44.2) % [place] % (Auto) 13.7 H (2.6-8.5) % Eos % (Auto) 5.2 H (0-4.4) % Baso % (Auto) 0.7 (0.2-1.2) % Lymph # (Auto) 0.57 L (0.9-3.2) K/mm3 [place] # (Auto) 0.6 (0.1-0.6) K/mm3 Eos # (Auto) 0.2 (0-0.3) K/mm3 Baso # (Auto) 0.0 (0.0-0.1) K/mm3 Abs Immat Gran (auto) 0.01 (0.00-0.031) K/mm3 Absolute Neuts (auto) 3.1 (1.3-6.7) K/mm3 Absolute Nucleated RBC 0.000 (0.0-0.012) K/mm3 Nucleated RBC % 0.0 (0.0-0.2) % PT 13.1 (11.1-14.7) Seconds INR 1.0 APTT 27.0 (22.3-36.8) Seconds Sodium 139 (137-145) mmol/L Potassium 4.8 (3.4-5.0) mmol/L Chloride 103 (98-107) mmol/L Carbon Dioxide 26 (22-30) mmol/L Anion Gap 10 (4-12) mmol/L BUN 29 H (9-20) mg/dL Creatinine 1.24 (0.7-1.3) mg/dL Estim Creat Clear Calc 48 ml/min Estimated GFR 56 L (59 - ) Glucose 159 H (65-110) mg/dL Calcium 9.9 (8.4-10.2) mg/dL Total Bilirubin 0.7 (0.2-1.3) mg/dL AST 32 (17-59) U/L ALT 22 (6-50) U/L Alkaline Phosphatase 74 (38-126) U/L Troponin I 0.118 H* (0.000-0.034) ng/mL Total Protein 8.1 (6.3-8.2) g/dL Albumin 4.8 (3.5-5.1) g/dL Lipase 86 (23-300) U/L Critical Care Time Critical Care Time Critical Care Time: Yes Total Critical Care Time: 31 Discharge Plan Discharge Clinical Impression: Acute non-ST elevation myocardial infarction (NSTEMI) Patient Disposition: Still a Patient Condition: Serious Patient Language: [place] Prescriptions: No Action mecobalamin (vitamin B12) 1,000 mcg tablet,disintegrating 1,000 mcg SUBLINGUAL DAILY aspirin 325 mg tablet 325 mg PO DAILY ibuprofen 200 mg capsule 400 mg PO BID PRN (Reason: Pain) S Alpha -Lipoic acid 600 mg BYMOUTH DAILY Antiva BYMOUTH omega-3 fatty acids [Fish Oil Concentrate] 1,000 mg capsule 1,000 mg PO BID levothyroxine 100 mcg capsule 100 mcg PO DAILY Qty: 90 1RF nitroglycerin 0.4 mg tablet, sublingual 0.4 mg sublingual Q5M PRN (Reason: chest pain) Qty: 25 0RF Rx Instructions: do not exceed 3 doses per episode calcium polycarbophil [FiberCon] 625 mg tablet 625 mg PO DAILY (DME) blood-glucose meter [OneTouch Ultra2 Meter] Kit See Rx Instructions .ROUTE .MEDSUPPLY Qty: 1 0RF Rx Instructions: check sugars twice a day cholecalciferol (vitamin D3) 50 mcg (2,000 unit) capsule 4,000 unit PO DAILY Synjardy XR 12.5-1,000 mg tablet, IR - ER, biphasic 24hr 1 tablet PO DAILY Qty: 90 1RF (DME) pen needle, diabetic [BD Ultra-Fine Mini Pen Needle] 31 gauge x 3/16 needle See Rx Instructions .ROUTE .COMPLEX Qty: 100 0RF Dose Instruction: USE TO INJECT INSULIN DAILY. Rx Instructions: USE TO INJECT INSULIN DAILY. rosuvastatin 5 mg tablet See Rx Instructions .ROUTE .COMPLEX Qty: 90 1RF Dose Instruction: Take 1 tablet by mouth once daily Rx Instructions: Take 1 tablet by mouth once daily (DME) OneTouch Ultra Test Strip See Rx Instructions .Route Qty: 50 0RF Rx Instructions: Tests up to 6 times daily Basaglar KwikPen U-100 Insulin 100 unit/mL (3 mL) insulin pen See Rx Instructions .ROUTE .COMPLEX Qty: 15 3RF Dose Instruction: INJECT 60 UNITS SUBCUTANEOUSLY ONCE DAILY DIRECTED Patient Comments: TAKES AT HS Rx Instructions: INJECT 30 UNITS SUBCUTANEOUSLY ONCE DAILY DIRECTED folic acid 1 mg tablet 1 mg PO DAILY Qty: 90 1RF Curcumin 1320 mg daily .Route Rx Instructions: 1320 mg po daily tamsulosin 0.4 mg capsule See Rx Instructions .ROUTE .COMPLEX Qty: 180 3RF Dose Instruction: TAKE 2 CAPSULES BY MOUTH ONCE DAILY NIGHTLY Rx Instructions: TAKE 2 CAPSULES BY MOUTH ONCE DAILY NIGHTLY Follow-up/Referrals: Nuno Cavazos MD [Primary Care Provider] -
--- OUTSIDE RECORDS SUMMARY | 2024-09-23 15:42 | XMS_ITS | Clinical Summary ---
Author Organization [facility] Address [address] [place] [address] Care Team Providers Care Freelance Data Entry Name Role Phone Nuno Cavazos MD Primary Care Provider [phone] Jerzy Watt MD Unavailable [phone] Palmer Thomas MD Unavailable [phone] Adam Dhaliwal MD Unavailable [phone] Gerardo Kemp MD Unavailable [phone] Allergies Active Allergy Reactions Criticality Noted Date [...] (01/04/2020): Added automatically from request for surgery [id number] Dehydration 12/30/2019 Ototoxic hearing loss of both [...] oncology standpoint at this point. 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 Gender Identity Male 01/20/2021 11:13 AM CDT [...] 01/28/20, 05/01/2019 Medical Devices Implanted Type Area Reproductive Surgeon Device Identifier Shelf Expiration Date Model / Serial / Lot [employer] rtho [id number] Evos [id number] 16.3x1.7mm 7 Hole Low Profile Variable Angle Lock - S0 - [id number] Implanted:Qty: 1 on 01/06/2020 by Paula Maradiaga MD at [facility] Plate Right: Ankle [employer]Or tho [id number] / 0 / [employer]/O rtho [id number] Evos 3.5mm 20mm Self Tap Cortex Screw Bone Sterile - S0 - [id number] Implanted:Qty: 1 on 01/06/2020 by Paula Maradiaga MD at [facility] Screw Right: Ankle [employer]Or tho [id number] / 0 / [employer]/O rtho [id number] Evos 3.5mm 14mm Self Tap Cortex Screw Bone Sterile - S0 - [id number] Implanted:Qty: 2 on 01/06/2020 [facility] Screw Right: Ankle [employer]Or tho [id number] / 0 / [employer]/O rtho [id number] Evos 3.5mm 12mm Self Tap Cortex Screw Bone Sterile - S0 - [id number] Implanted:Qty: 1 on 01/06/2020 by Paula Maradiaga MD at [facility] Screw Right: Ankle [employer]/Or tho [id number] / 0 / [employer]/O rtho [id number] Evos 3.5mm 15mm Self Tap Cortex Screw Bone Sterile - S0 - [id number] Implanted:Qty: 1 on 01/06/2020 by Paula Maradiaga MD at [facility] Screw Right: Ankle [employer]/Or tho [id number] / 0 / [employer]/O rtho [id number] 4mm 4.5mm 16mm Self Retaining Screwdriver T8 Full Thread Screw - S0 - [id number] Implanted:Qty: 3 on 01/06/2020 by Paula Maradiaga MD at [facility] Screw Right: Ankle [employer] tho [id number] / 0 / [employer] rtho [id number] 4mm 4.5mm 18mm Self Retaining Screwdriver T8 Full Thread Screw - S0 - [id number] Implanted:Qty: 1 on 01/06/2020 by Paula Maradiaga MD at [facility] Screw Right: Ankle [employer]Or tho [id number] / 0 / Procedures Procedure Name Priority Date/Time Associated Diagnosis Comments HEMOGLOBIN A1C Routine 01/28/2020 3:22 PM CDT LIPID PANEL Routine 01/28/2020 3:22 PM CDT from Last 3 Months or Most Recently Relevant to Health Maintenance Results * (ABNORMAL) Hemoglobin A1c (01/28/2020 3:22 PM CDT) Hgb A1C 8.1(H) 4.0 - 5.6 % [facility] Estimated Average Glucose 186 mg/dL [facility] Comment: The ADA recommends reporting an estimated Average Glucose (eAG) with all Hemoglobin A1c results using the equation derived from a study of 507 normal and diabetic adults. Minority populations were underrepresented and children were not included. (Diabetes Care 31:2064-9488, 2008). The eAG is not equivalent to a fasting glucose. Blood specimen (specimen) 01/28/2020 3:22 PM CDT 01/28/2020 3:46 PM CDT Pedro Luis Noe MD LAB BLOOD ORDERABLES Final Re sult [facility] [place] [address] * Lipid panel (01/28/2020 3:22 PM CDT) Cholesterol 148 30 - 199 mg/dL [facility] Comment: Interpretive Data Ages < or [...] revised on 2017. Triglycerides 125 <=149 mg/dL [facility] Comment: Interpretive Data Ages < or [...] revised on 2017. HDL 59 >=40 mg/dL [facility] Comment: Interpretive Data Ages < or [...] on 2017. LDL, calculated 64 <=129 mg/dL [facility] Comment: Interpretive Data Ages < or [...] revised on 2017. Non-HDL Cholesterol 89 mg/dL [facility] Comment: Interpretive Data Ages < or [...] last revised on 2017. Chol/HDL ratio 3 [facility] Blood specimen (specimen) 01/28/2020 3:22 PM CDT 01/28/2020 3:46 PM CDT us Pedro Luis Noe MD LAB BLOOD ORDERABLES Final Re sult [facility] [place] [address] from Last 3 Months or Most Recently Relevant to Health Maintenance Insurance MEDICARE [facility] SUPPLEMENT MEDICARE [facility] MCR SUPPLEMENT COMMERCIAL GENERIC MEDICARE [place] [address] COMMERCIAL GENERIC [facility] [place] [place] [address] MEDICARE MEDICARE [facility] MCR SUPPLEMENT [place] [id number] Advance Directives For more information, please contact: [phone] Documents on File Type Date Recorded Patient Customer Service Administrator Expl anation ADVANCE DIRECTIVE 12/22/2019 9:26 AM Power of Communication Assistant-Medical * Full Code (Latest Code Status on File) Date Activated Date Inactivated Comments 01/28/2020 12:37 PM 02/01/2020 12:10 AM * Full Code Date Activated Date Inactivated Comments 12/08/2019 8:07 AM 12/08/2019 1:47 PM Care Teams Freelance Data Entry Relationship Specialty Start Date End Date Nuno Cavazos MD [address] [place] [address] PCP - General 02/18/17 Jerzy Watt MD [address] [facility] [address] [place] [address] Referring Physician Medical Oncology 11/07/19 Palmer Thomas MD [address] [place] [address] Referring Physician Otolaryngology 11/07/19 Adam Dhaliwal MD [address] [facility] [address] [place] [address] Radiation Oncologist Radiation Oncology 11/07/19 Gerardo Kemp MD [address] [facility] [address] [place] [address] Referring Physician Cardiovascular Disease 02/13/22
--- OUTSIDE RECORDS SUMMARY | 2024-09-23 15:42 | XMS_ITS | Encounter Summary ---
Author Organization [facility] Address [address] [place] [address] Care Team Providers Care Chiller Technician Name Role Phone Unavailable Primary Care Provider Unavailabl e Encounter Details Date Type Department Care Team (Late st Contact Info) Description 06/22/2015 Ancillary Orders [facility] Cardiology Physician Isreal [address] [facility] [address] [place] [address] Baljit Larson MD [address] [facility] [address] [place] [address] Screening (Primary Dx) Social History Tobacco Use Types Packs/Day Years Used Date Smoking Tobacco: Never Assessed Sex and Gender Information Value Date Recorded Sex Assigned at Not on file 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
--- OUTSIDE RECORDS SUMMARY | 2024-09-23 15:42 | XMS_ITS | Clinical Summary ---
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
--- OUTSIDE RECORDS SUMMARY | 2024-09-23 15:42 | XMS_ITS ---
Author Organization [facility] Address [address] [place] [address] Care Team Providers Care Chemical Waste Management Technician Name Role Phone Nuno Cavazos MD Primary Care Provider [phone] Jerzy Watt MD Unavailable [phone] Palmer Thomas MD Unavailable Adam Dhaliwal MD [...] (01/04/2020): Added automatically from request for surgery [id number] Dehydration 12/30/2019 Ototoxic hearing loss of both [...] oncology standpoint at this point. Atherosclerosis of [place] of both lower extremities with [...] 200 35 / 7,000 Reference Points Delivered [id number] 12/09/2019 - 01/29/2020 7,000 Lifetime Dose Tracking * Chemical Lifetime Dose Automatic Entry Manual Entr y Fluoro Time 5.46 minutes 5.46 minutes 0 minutes Air kerma at the reference point (Ka,r) 59.91 mGy 5 9.91 mGy 0 mGy DLP 4,062 mGycm 4,062 mGycm 0 mGycm
--- OUTSIDE RECORDS SUMMARY | 2024-09-23 15:42 | XMS_ITS | Referral Summary ---
Author Organization [facility] Address [address] [place] [address] Care Team Providers Care Camera Technician Name Role Phone Nuno Cavazos MD Primary Care Provider [phone] Jerzy Watt MD Unavailable [phone] Palmer Thomas MD Unavailable [phone] Adam Dhaliwal MD Unavailable Gerardo Kemp MD [...] (01/04/2020): Added automatically from request for surgery [id number] Dehydration 12/30/2019 Ototoxic hearing loss of both [...] oncology standpoint at this point. 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 Gender Identity Male 01/20/2021 11:13 AM CDT [...] on file Medical Devices Implanted Type Area Supervisor Shipping Room Device Identifier Shelf Expiration Date Model / Serial / Lot [employer] rtho [id number] Evos [id number] 16.3x1.7mm 7 Hole Low Profile Variable Angle Lock - S0 - [id number] Implanted:Qty: 1 on 01/06/2020 by Paula Maradiaga MD at [facility] Plate Right: Ankle [employer]Or tho [id number] / 0 / [employer] rtho [id number] Evos 3.5mm 20mm Self Tap Cortex Screw Bone Sterile - S0 - [id number] Implanted:Qty: 1 on 01/06/2020 by Paula Maradiaga MD at [facility] Screw Right: Ankle [employer]Or tho [id number] / 0 / [employer] rtho [id number] Evos 3.5mm 14mm Self Tap Cortex Screw Bone Sterile - S0 - [id number] Implanted:Qty: 2 on 01/06/2020 by Paula Maradiaga MD at [facility] Screw Right: Ankle [employer]Or tho [id number] / 0 / [employer] rtho [id number] Evos 3.5mm 12mm Self Tap Cortex Screw Bone Sterile - S0 - [id number] Implanted:Qty: 1 on 01/06/2020 by Paula Maradiaga MD at [facility] Screw Right: Ankle [employer]Or tho [id number] / 0 / [employer] rtho [id number] Evos 3.5mm 15mm Self Tap Cortex Screw Bone Sterile - S0 - [id number] Implanted:Qty: 1 on 01/06/2020 by Paula Maradiaga MD at [facility] Screw Right: Ankle [employer]Or tho [id number] / 0 / [employer] rtho [id number] 4mm 4.5mm 16mm Self Retaining Screwdriver T8 Full Thread Screw - S0 - [id number] Implanted:Qty: 3 on 01/06/2020 by Paula Maradiaga MD at [facility] Screw Right: Ankle [employer]Or tho [id number] / 0 / [employer] rtho [id number] 4mm 4.5mm 18mm Self Retaining Screwdriver T8 Full Thread Screw - S0 - [id number] Implanted:Qty: 1 on 01/06/2020 by Paula Maradiaga MD at [facility] Screw Right: Ankle [employer]Or tho [id number] / 0 / Procedures Procedure Name Priority [...] and children were not included. (Diabetes Care 31:1907-9565, 2008). The eAG is not equivalent to a fasting glucose. Blood specimen (specimen) 01/28/2020 3:22 PM CDT 01/28/2020 3:46 PM CDT us Pedro Luis Noe MD LAB BLOOD ORDERABLES Final Re sult [facility] [place] [address] * Lipid panel (01/28/2020 3:22 PM CDT) Cholesterol 148 30 - 199 mg/dL [facility] Comment: Interpretive Data Ages < or [...] on 2017. Triglycerides 125 <=149 mg/dL [facility] Comment: Interpretive Data Ages < or [...] on 2017. HDL 59 >=40 mg/dL [facility] Comment: Interpretive Data Ages < or [...] on 2017. LDL, calculated 64 <=129 mg/dL [facility] Comment: Interpretive Data Ages < or [...] revised on 2017. Non-HDL Cholesterol 89 mg/dL [facility] Comment: Interpretive Data Ages < or [...] last revised on 2017. Chol/HDL ratio 3 [facility] Blood specimen (specimen) 01/28/2020 3:22 PM CDT 01/28/2020 3:46 PM CDT us Pedro Luis Noe MD LAB BLOOD ORDERABLES Final Re sult [facility] [place] [address] from Last 3 Months or Most Recently Relevant to Health Maintenance Insurance MEDICARE [facility] MEDICARE [facility] MCR SUPPLEMENT COMMERCIAL GENERIC MEDICARE [facility] MCR SUPPLEMENT [place] [address] [id number] [place] [address] [facility] MCR SUPPLEMENT [place] [id number] MEDICARE MEDICARE [facility] MCR SUPPLEMENT Advance Directives For more information, please contact: [phone] Documents on File Type Date Recorded Patient Metallurgist Process Expl anation ADVANCE DIRECTIVE 12/22/2019 9:26 AM Power of Director Financial Analysis-Medical * Full Code (Latest Code Status on File) Date Activated Date Inactivated Comments 01/28/2020 12:37 PM 02/01/2020 12:10 AM * Full Code Date Activated Date Inactivated Comments 12/08/2019 8:07 AM 12/08/2019 1:47 PM Care Teams Camera Technician Relationship Specialty Start Date End Date Nuno Cavazos MD [address] [facility] [address] [place] [address] PCP - General 02/18/17 Jerzy Watt MD [address] [facility] [address] [place] [address] Referring Physician Medical Oncology 11/07/19 Palmer Thomas MD [address] [place] [address] Referring Physician Otolaryngology 11/07/19 Adam Dhaliwal MD [address] [facility] [address] [place], [place] [id number] Radiation Oncologist Radiation Oncology 11/07/19 Gerardo Kemp MD [address] [facility] [address] [place], [place] [id number] Referring Physician Cardiovascular Disease 02/13/22
--- OUTSIDE RECORDS SUMMARY | 2024-09-23 15:42 | XMS_ITS | Encounter Summary ---
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 Gender Identity Male 01/20/2021 11:13 AM [...] on filedocumented in this encounter Care Teams Lumber Racker Relationship Specialty Start Date End Date Nuno Cavazos MD [address] [place] [address] PCP - General 02/18/17 Jerzy Watt MD [address] [facility] [address] [place] [address] Referring Physician Medical Oncology 11/07/19 Julian Greer MD [address] [facility] [address] [place] [address] Referring Physician Otolaryngology 11/07/19 08/13/22 Palmer Thomas MD [address] [place] [address] Referring Physician Otolaryngology 11/07/19 Adam Dhaliwal MD [address] [facility] [address] [place] [address] Radiation Oncologist Radiation Oncology 11/07/19 Gerardo Kemp MD [address] [facility] [address] [place] [address] Referring Physician Cardiovascular Disease 02/13/22 documented as of this encounter
--- OUTSIDE RECORDS SUMMARY | 2024-09-23 15:42 | XMS_ITS | Continuity of Care Document ---
Author Organization [facility] Address [address] [place] [address] Phone Care Team Providers Care Nutrition Director Name Role Phone Frias OD, Jitendra Unavailable Unavailable Procedures Procedure Date Office/outpatient Visit, Est Office/outpatient Visit, Est Eye Exam & Treatment Eye Exam & Treatment Refraction Advance Directives Directive Yes / No Effective Date File Name No Information Encounters Encounter Description Practice Location Reason(s) For Visit Diagnoses Date Provider Providers Copied on Encounter Office/outpat ient Visit, [facility] [address] [place] [address] [address], [place], [place], [id number], [place] tel:[phone] [facility] No Information 0-201 0 Frias OD Jitendra. [address], [place], [place], [facility], [place]. tel:[phone] Office/outpat ient Visit, [facility], [id number] [place] [address] [address], [place], [place], [address], [place] tel:[phone] [facility] No Information 3-200 9 Frias OD Jitendra. [address], [place], [address], [place]. tel:[phone] [facility], [address] [place] [address] [address], [place], [place], [address], [place] tel:[phone] [facility] No Information Mar-2 7-200 8 Frias OD Jitendra. [address] , [address], [place], [address], [place]. tel:[phone] [facility], [address] [facility] [address], [place], [place], [address], [place] tel:[phone] [facility] No Information Feb-0 6-200 7 Frias OD Jitendra. [address] , [address], [place], [address], [place]. tel:[phone] Family History Family Member Type Diagnosis Age At Onset No Information Payers Payer name Insurance type Covered constitution party ID Authoririsa bebeto(s) [facility] [id number] Social History Type Description Quantity Date Captured [...]
--- OUTSIDE RECORDS SUMMARY | 2024-09-23 15:42 | XMS_ITS | Clinical Summary ---
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
--- OUTSIDE RECORDS SUMMARY | 2024-09-23 15:42 | XMS_ITS | Encounter Summary ---
Author Organization [facility] Address [address] [place] [address] Care Team Providers Care Costume Design Teacher Name Role Phone Nuno Cavazos MD Primary Care Provider [phone] Jerzy Watt MD Unavailable [phone] Julian Greer MD Unavailable Palmer Thomas MD Unavailable [phone] Adam Dhaliwal MD Unavailable Gerardo Kemp MD Unavailable [phone] Encounter Details Date Type Department Care Team (Late st Contact Info) Description 06/15/2020 Telephone [facility] Radiation Oncology [address] [facility] [place] [address] Rula Jones MA Social History Tobacco Use Types Packs/Day Years Used Date Smoking Tobacco: Never Smokeless Tobacco: Never Alcohol Use Standard Drinks/Week Comments Yes 4 (1 standard drink = 0.6 oz pur e alcohol) Sex and Gender Information Value Date Recorded Sex Assigned at Not on file 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 Gender Identity Male 01/20/2021 11:13 AM CDT Sexual Orientation Straight 12/07/2019 12 :26 PM CDT documented as of this encounter Plan of Treatment Not on file documented as of this encounter Visit Diagnoses Not on filedocumented in this encounter Care Teams Costume Design Teacher Relationship Specialty Start Date End Date Nuno Cavazos MD [address] [place] [address] PCP - General 02/18/17 Jerzy Watt MD [address] [facility] [address] [place] [address] Referring Physician Medical Oncology 11/07/19 Julian Greer MD [address] [facility] [address] [place] [address] Referring Physician Otolaryngology 11/07/19 08/13/22 Palmer Thomas MD [address] [place] [address] Referring Physician Otolaryngology 11/07/19 Adam Dhaliwal MD [address] [facility] [address] LL [address] [place] [address] Radiation Oncologist Radiation Oncology 11/07/19 Gerardo Kemp MD [address] [place] [address] Referring Physician Cardiovascular Disease 02/13/22 documented as of this encounter
--- OUTSIDE RECORDS SUMMARY | 2024-09-23 15:42 | XMS_ITS | Clinical Summary ---
Author Organization [facility] Address [address] [place] [place] [address] Care Team Providers Care Warehouse Selector Name Role Phone Gerardo Kemp MD Unavailable [phone] Nuno Cavazos MD Primary Care Provider [phone] Source Comments [facility],non-owned Affiliates and Associated Physician Practices is amultiple site organization consisting of ambulatory clinics and hospital sitesin [place], [place]. This disclosure is being madepursuant to the Care Everywhere program and may not contain all information available regarding this patient. 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 REPORT COMMENT: FASTING:YES Test Performed at: [facility] [id number] [place] [address] URMILA FUCHS DO,MPH Blood specimen (specimen) BLOOD SPECIMEN / Unknown 10/19/2015 9:19 AM CDT 10/19/2015 9:20 AM CDT Eneida Jones MD LAB - CHEMISTRY ORDERABLES Angelita loza Result [facility]) [address] * (ABNORMAL) BASIC METABOLIC PANEL (CALCIUM TOTAL) (10/19/2015 9:19 AM CDT) Glucose 184(H) 65 - 99 mg/dL [facility]) Comment: Fasting reference interval BUN 20 7 - 25 mg/dL [facility]) Creatinine 1.07 0.70 - 1.25 mg/dL [facility] ([facility]) Comment: For patients >49 years of age, the reference limit for Creatinine is approximately 13% higher for people identified as -German. BUN/Creatinine Ratio NOT APPLICABLE 6 - 22 (calc) [facility] Sodium 138 135 - 146 mmol/L [facility]) Potassium 4.4 3.5 - 5.3 mmol/L [facility] Chloride 103 98 - 110 mmol/L [facility] CO2 25 19 - 30 mmol/L [facility] Calcium 9.3 8.6 - 10.3 mg/dL [facility] Comment: Test Performed at: [facility] [address] [place] [address] URMILA FUCHS DO,MPH Blood specimen (specimen) BLOOD SPECIMEN / Unknown 10/19/2015 9:19 AM CDT 10/19/2015 9:20 AM CDT Eneida Jones MD LAB - CHEMISTRY ORDERABLES Angelita loza Result [facility] ([facility]) [address] from Last 3 Months or Most Recently Relevant to Health Maintenance Insurance MEDICARE [facility] MEDICARE Care Teams Warehouse Selector Relationship Specialty Start Date End Date Nuno Cavazos MD [address] [place] [id number] PCP - General Internal Medicine 08/10/22 Gerardo Kemp MD [address] [facility] [address] [place] [address] Cotton Candy Maker Cardiovascular Disease 10/20/20
[2024-09-23 15:46] VITALS: BP 145/108; PULSE 67; RESP 18; O2SAT 99
[2024-09-23] MEDS: HEPARIN SODIUM 5,000 UNITS/ML VIAL 4000 UNITS IV PUSH (15:59)
[2024-09-23] MEDS: HEPARIN SOD/D5W 100 UNITS/ML 25,000 UNITS/250 ML BAG 9 UNITS IV CONT (16:00)
--- NOTE | 2024-09-23 16:00 | P.HP_ITS ---
H&P: HPI History of Present Illness Date/Time: 09/23/24 16:00 Chief Complaint: Elevated troponin Narrative: 79-year-old male presents to the emergency room with elevated troponin. He went to his PCP with shortness of breath found have an elevated troponin consent to the hospital for further workup. He states that he went to his PCP is over the last month or 2 he has noticed increased shortness of breath with activity which has got worse over the last couple days. He denies actual chest pain but states he has a sensation in his chest that is hard to describe. Patient denies nausea vomiting diaphoresis or diarrhea. His troponin was 0.118. Rest his blood work is within normal limits. Chest x- ray shows no acute process. EKG shows atrial flutter rate of 68. Cardiology consulted patient started on heparin drip. Review of Systems Review of Systems: 12 systems were reviewed and are negativ e except for as per HPI. [facility] Past Medical History Medical History Abdominal bloating Abnormal finding of blood chemistry Ankle fracture, right Anxiety and depression Asbestos exposure ASHD (arteriosclerotic heart disease) >4 METs Back pain Bilateral cataracts BMI 21.0-21.9, adult BMI 22.0-22.9, adult BMI 23.0-23.9, adult BMI 24.0-24.9, adult BMI 26.0-26.9,adult Borderline abnormal TFTs Carotid stenosis Cervical spondylosis Chronic fatigue Chronic sore throat CKD (chronic kidney disease), stage II Colon cancer screening Cough COVID-19 vaccine series completed Depression Diabetes mellitus type 2, insulin dependent DJD (degenerative joint disease) Dysphagia Elevated homocysteine Elevated PSA Encounter for Medicare annual wellness exam Encounter for routine adult health examination with abnormal findings Encounter for routine adult health examination without abnormal findings Follow up Grief Gross hematuria Hearing loss History of cataract History of head and neck cancer Hospital discharge follow-up Hx of bladder cancer Hyperlipidemia Hypersomnolence Hyperventilation Hypothyroidism (acquired) Inguinal hernia Jaw pain MCC (current) use of insulin Loss of appetite Mandibular pain Mastodynia of left breast Memory impairment 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 Dr. Morgan History of coronary artery stent placement x6, last one in 2017 S/P cataract surgery Family History Family History Father Family history of lung disease Mother Family history of malignant neoplasm of gastrointestinal tract Social History Social History Smoking status: Never smoker Second hand tobacco smoke exposure: No Alcohol intake: current Alcohol use details: 2-3 BOTTLES PER WK Substance use: current Substance use type: marijuana Other substance usage details: drinks 3-4 bottles of wine a week and uses medical marijuana Last use: 02/09/24 Do You Feel Safe in your Home?: Yes Lack of Transportation: No Lack of Food: Never True Current Housing: I Have Housing Concerned About Future Housing: No Difficulty Paying Gas/Electric Bills: No Difficulty Paying for Meds: No Currently Unemployed: No Education: Associate Degree Difficulty w/ Childcare or Family Care: No Living arrangements: alone Gender identity (if verbalized by the patient): Male Spiritual care concerns: No Meds Home Medications and Allergies Home Medications ?Medication ?Instructions ?Recorded ?Confirmed ?Type mecobalamin (vitamin B12) 1,000 1,000 mcg sublingual DAILY 05/04/19 09/23/24 History mcg disintegrating tablet,sublingual omega-3 fatty acids 1,000 mg 1,000 mg PO BID 09/07/19 09/23/24 History capsule (Fish Oil Concentrate) [address] Ultra2 Meter #1 ea 04/28/20 09/23/24 Rx (blood-glucose meter) aspirin 325 mg tablet 325 mg PO DAILY 10/22/22 09/23/24 History cholecalciferol (vitamin D3) 50 6,000 unit PO DAILY 01/31/24 09/23/24 History mcg (2,000 unit) capsule ibuprofen 200 mg capsule 400 mg PO BID PRN Pain 02/12/24 09/23/24 History calcium polycarbophil 625 mg 625 mg PO DAILY 11/01/24 06/04/25 History tablet (FiberCon) empagliflozin 12.5 mg-metformin ER 1 tablet PO DAILY #90 ea 03/30/24 09/23/24 Rx 1,000 mg tablet,extended rel 24 hr (Synjardy XR) BD Ultra-Fine Mini Pen Needle 31 #100 ea 04/09/24 09/23/24 Rx gauge x 3/16 (pen needle, diabetic) rosuvastatin 5 mg tablet See Rx Instructions .Route 05/04/24 09/23/24 Rx .COMPLEX #90 tabs Antiva BYMOUTH 06/22/24 09/23/24 History S Alpha -Lipoic acid 600 mg BYMOUTH DAILY 06/22/24 09/23/24 History blood sugar diagnostic (OneTouch #50 ea 07/02/24 09/23/24 Rx Ultra Test strips) folic acid 1 mg tablet 1 mg PO DAILY #90 tabs 08/26/24 09/23/24 Rx Curcumin 1320 mg daily 1,320 mg PO DAILY 09/01/24 09/23/24 History levothyroxine 100 mcg capsule 100 mcg PO DAILY #90 caps 09/15/24 09/23/24 Rx tamsulosin 0.4 mg capsule See Rx Instructions .Route 09/15/24 09/23/24 Rx .COMPLEX #180 caps insulin glargine 100 unit/mL (3 See Rx Instructions .Route .COMPLEX 09/23/24 09/23/24 History mL) subcutaneous pen (Basaglar KwikPen U-100 Insulin) nitroglycerin 0.4 mg sublingual 0.4 mg sublingual Q5M PRN chest 09/23/24 09/23/24 Rx tablet pain #25 tabs Allergies Allergy/AdvReac Type Severity Reaction Status Date / Time atorvastatin AdvReac Intermediate Other Verified 09/23/24 15:47 isosorbide AdvReac Intermediate Unknown Verified 09/23/24 15:47 Vital Signs Vital Signs - 24 hr 09/23/24 14:39 09/23/24 15:46 Temperature 97.2 F L Pulse Rate 77 67 Respiratory Rate 16 18 Blood Pressure 173/80 H 145/108 H Pulse Oximetry 99 99 Oxygen Delivery Room Air Exam Narrative: General: well appearing, appears stated age. HEENT: normocephalic, atraumatic. Mucous membranes moist. EOMI, PERRLA, bilateral sclera anicteric, no conjunctival injection. Neck supple without JVD, lymphadenopathy, or bruit. Respiratory: clear to ascultation bilaterally. No rales/rhonic/wheezes. Cardiovascular: Regular rate and rhythm, normal S1-S2 upon ascultation. No murmurs, rubs, or clicks. PMI is nondisplaced, capillary refill less than 3 second. Abdomen: Soft, round, no pulsatile masses, nondistended and nontender. No rebound, no guarding. No CVA tenderness, no hepatosplenomegaly. Bowel sounds present to all four quadrants. No high pitch or tinkling sounds, resonant to percussion. Extremities: No cyanosis, clubbing, or edema present. Pulses are palpable 2/2. Active ROM to all four extremities. Neuro: Alert and orientated x 4. PERRLA. Cranial nerves 2-12 intact without focal deficit. Skin: Warm, dry, and intact, without rash, erythema, or lesion. Psych: pleasant, cooperative, normal speech, normal affect, no hallucinations, no dysarthia H&P: Results Labs Labs: Short CBC 09/23/24 Range/Units 14:48 WBC 4.6 (4.5-10.0) K/mm3 Hgb 14.3 (14.0-18.0) g/dL Hct 44.1 (42.0-52.0) % Plt Count 187 (150-375) k/mm3 BMP 09/23/24 14:48 Sodium 139 Potassium 4.8 Chloride 103 Carbon Dioxide 26 BUN 29 H Creatinine 1.24 Glucose 159 H Calcium 9.9 Cardiac Enzymes 09/23/24 Range/Units 14:48 Troponin I 0.118 H* (0.000-0.034) ng/mL Liver Function 09/23/24 Range/Units 14:48 Total Bilirubin 0.7 (0.2-1.3) mg/dL AST 32 (17-59) U/L ALT 22 (6-50) U/L Alkaline Phosphatase 74 (38-126) U/L Albumin 4.8 (3.5-5.1) g/dL Assessment and Plan Assessment and plan (1) NSTEMI (non-ST elevated myocardial infarction): Code(s): I21.4 - Non-ST elevation (NSTEMI) myocardial infarction Status: Acute Assessment and Plan: Cardiology consulted NPO Heparin drip Possible stent placement tomorrow Trend troponins with EKGs (2) Diabetes mellitus type 2, insulin dependent: Code(s): E11.9 - Type 2 diabetes mellitus without complications; 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 Status: Acute Assessment and Plan: Currently NPO Accu-Cheks q.6 with SSI Lantus nightly Hold home metformin (3) Hypothyroidism (acquired): Code(s): E03.9 - Hypothyroidism, unspecified Status: Acute Assessment and Plan: Continue levothyroxine (4) Hyperlipidemia: Qualifiers: Hyperlipidemia type: mixed hyperlipidemia Qualified Code(s): E78.2 - Mixed hyperlipidemia Code(s): E78.5 - Hyperlipidemia, unspecified Status: Acute Assessment and Plan: Continue statin Quality VTE Prophylaxis VTE prophylaxis: mechanical ordered and pharmacologic ordered Hospitalist MIPS Advance Care Plan I have confirmed that the patient's Advanced Care Plan is present, code status is documented, or surrogate decision maker is listed in patient medical record.: Yes Medication Reconciliation I have utilized all available resources to obtain, update and review the patients current medications (includes all prescriptions, OTC, herbals, cannabis, and nutritional supplements).: Yes
[2024-09-23 16:48] VITALS: BP 157/94; PULSE 58; RESP 18; O2SAT 98
[2024-09-23 17:22] VITALS: PULSE 60; RESP 18; O2SAT 99
[2024-09-23 18:13] VITALS: BMI 22.4
[2024-09-23 18:20] LABS: Troponin I 0.117 ng/mL (0.000-0.034)
[2024-09-23 18:37] VITALS: BP 146/77; PULSE 67; RESP 18; TEMP 36.5; O2SAT 98
--- NOTE | 2024-09-23 18:55 | ADMGEN ---
This patient, Elliot Traylor, was admitted to IMU Room 210-01 at 1728. Patient/family oriented to hospital policies and general routines including ID bracelet, bed and alarms, visiting hours, pain management, procedures, bathroom and other care routines, personal items, smoking policy, room service/diet, and visiting hours. Information on how to activate the Rapid Response Team has been discussed. Patient/Family are encouraged to report perceived risks to care and to ask questions if they do not understand what they are told or what they should do.
[2024-09-23 20:22] VITALS: BP 137/54; PULSE 78; RESP 15; TEMP 36.7; O2SAT 96
[2024-09-23 20:29] LABS: Glucose Point of Care 236 mg/dl (65-105)
[2024-09-23 21:09] LABS: Prothrombin Time 13.8 Seconds (11.1-14.7)
[2024-09-23 21:10] LABS: Partial Thromboplastin Time 56.2 Seconds (22.3-36.8)
[2024-09-23 21:27] LABS: Troponin I 0.098 ng/mL (0.000-0.034)
[2024-09-23] MEDS: HEPARIN SODIUM 5,000 UNITS/ML VIAL 3000 UNITS IV PUSH (22:02)
[2024-09-23] MEDS: INSULIN GLARGINE (*BKC) 100 UNITS/ML 20 UNITS SUB-Q (22:04)
[2024-09-23] MEDS: INSULIN ASPART (*BKC) 100 UNITS/ML SUB-Q (22:04)
[2024-09-23] MEDS: TAMSULOSIN HCL 0.4 MG CAPSULE 0.8 MG BY MOUTH (23:52)
[2024-09-24] VITALS (36 sets, daily range): BP systolic 100–186; BP diastolic 38–111; PULSE 55–100; RESP 11–22; TEMP 36.3–36.8; O2SAT 94–100
[2024-09-24 04:34] LABS: Basophils Absolute Auto 0.1 K/mm3 (0.0-0.1); Eosinophils Absolute Auto 0.3 K/mm3 (0-0.3); Eosinophils Percent Auto 6.4 % (0-4.4); Hemoglobin 13.3 g/dL (14.0-18.0); Immature Granulocyte Absolute 0.02 K/mm3 (0.00-0.031); Immature Granulocyte Percent A 0.4 % (0-0.5); Lymphocytes Absolute Auto 0.53 K/mm3 (0.9-3.2); Lymphocytes Percent Auto 10.9 % (18.3-44.2); Mean Corpuscular HGB Conc 31.7 g/dl (32-36); Mean Corpuscular Hemoglobin 30.2 pg (26-34); Mean Corpuscular Volume 95.2 fl (80-100); Mean Platelet Volume 10.8 fl (7.4-10.4); Monocytes Absolute Auto 0.7 K/mm3 (0.1-0.6); Monocytes Percent Auto 14.2 % (2.6-8.5); Neutrophils Absolute Auto 3.3 K/mm3 (1.3-6.7); Neutrophils Percent Auto 67.1 % (45.5-73.1); Platelet Count Result 168 k/mm3 (150-375); Red Blood Count 4.41 M/mm3 (4.6-6.20); Red Cell Distribution Width 13.8 % (11.5-14.5); White Blood Count 4.9 K/mm3 (4.5-10.0)
[2024-09-24 04:47] LABS: Anion Gap 5 mmol/L (4-12); Blood Urea Nitrogen 30 mg/dL (9-20); Calcium 9.2 mg/dL (8.4-10.2); Carbon Dioxide 27 mmol/L (22-30); Chloride 106 mmol/L (98-107); Estimated CRCL calculation 44 ml/min; Estimated Glomerular Filt Rate 53; Glucose 94 mg/dL (65-110); Potassium 4.3 mmol/L (3.4-5.0); Sodium 138 mmol/L (137-145)
[2024-09-24 05:02] LABS: Partial Thromboplastin Time 83.8 Seconds (22.3-36.8)
[2024-09-24] MEDS: LEVOTHYROXINE SODIUM 100 MCG TABLET PO (05:49)
[2024-09-24 07:42] LABS: Glucose Point of Care 93 mg/dl (65-105)
[2024-09-24 08:49] LABS: Glucose Point of Care 101 mg/dl (65-105)
[2024-09-24] MEDS: ASPIRIN 325 MG TABLET PO (09:34)
[2024-09-24] MEDS: ROSUVASTATIN 5 MG TABLET BY MOUTH (09:34)
--- NOTE | 2024-09-24 10:01 | P.PNIM_ITS ---
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 Patient has a past medical history of 5 stents placed about 10 years ago. Underwent cath and unable to stent RCA. Possible transfer to tertiary care hospital Review of Systems Review of Systems: 12 systems were reviewed and are negativ e except for as per HPI. Exam Narrative: General: well appearing, appears stated age. HEENT: normocephalic, atraumatic. Mucous membranes moist. EOMI, PERRLA, bilateral sclera anicteric, no conjunctival injection. Neck supple without JVD, lymphadenopathy, or bruit. Respiratory: clear to ascultation bilaterally. No rales/rhonic/wheezes. Cardiovascular: Regular rate and rhythm, normal S1-S2 upon ascultation. No murmurs, rubs, or clicks. PMI is nondisplaced, capillary refill less than 3 second. Abdomen: Soft, round, no pulsatile masses, nondistended and nontender. No rebound, no guarding. No CVA tenderness, no hepatosplenomegaly. Bowel sounds present to all four quadrants. No high pitch or tinkling sounds, resonant to percussion. Extremities: No cyanosis, clubbing, or edema present. Pulses are palpable 2/2. Active ROM to all four extremities. Neuro: Alert and orientated x 4. PERRLA. Cranial nerves 2-12 intact without focal deficit. Skin: Warm, dry, and intact, without rash, erythema, or lesion. Psych: pleasant, cooperative, normal speech, normal affect, no hallucinations, no dysarthia Objective Data Vital Signs Vital Signs: Vital Signs - 24 hr 09/23/24 14:39 09/23/24 15:46 09/23/24 16:48 Temperature 97.2 F L Pulse Rate 77 67 58 L Respiratory Rate 16 18 18 Blood Pressure 173/80 H 145/108 H 157/94 H Pulse Oximetry 99 99 98 Oxygen Delivery Room Air 09/23/24 17:22 09/23/24 18:37 09/23/24 20:22 Temperature 97.7 F 98.1 F Pulse Rate 60 67 78 Respiratory Rate 18 18 15 Blood Pressure 146/77 H 137/54 L Pulse Oximetry 99 98 96 Oxygen Delivery 09/24/24 00:00 09/24/24 04:00 09/24/24 07:44 Temperature 97.7 F 97.9 F 97.9 F Pulse Rate 68 57 L 61 Respiratory Rate 18 20 18 Blood Pressure 137/66 100/38 L 114/57 L Pulse Oximetry 96 100 96 Oxygen Delivery Intake/Output Intake/Output: Intake & Output 09/21/24 09/22/24 09/23/24 09/24/24 23:59 23:59 23:59 23:59 Intake Total 54.3 204.1 Balance 54.3 204.1 Meds/Results Medications: Active Medications Generic Name Dose Route Start Last Admin Trade Name Freq PRN Reason Stop Dose Admin Acetaminophen 650 mg 09/23/24 16:16 Acetaminophen 325 Mg Tablet PO Q4H PRN Mild Pain (1-3) or Fever Aspirin 325 mg 09/24/24 09:00 09/24/24 09:34 Aspirin 325 Mg Tablet PO 325 mg DAILY RADHA Administration Dextrose 12.5 gm 09/23/24 16:15 Dextrose 50% 25 Gm/50 Ml Syringe IV PUSH PRN PRN Hypoglycemia Protocol Glucagon 1 mg 09/23/24 16:15 Glucagon For Inj 1 Mg Vial IM PRN PRN Hypoglycemia Protocol Glucose 15 gm 09/23/24 16:15 Glucose Oral Gel 15 Gm Of Glucse In 37.5 Gm Tube PO PRN PRN Hypoglycemia Protocol Heparin Sodium (Porcine) 4,000 units 09/23/24 15:35 Heparin Sodium 5,000 Units/Ml Vial IV PUSH PRN PRN aPTT less than 55 seconds Heparin Sodium (Porcine) 3,000 units 09/23/24 15:35 09/23/24 22:02 Heparin Sodium 5,000 Units/Ml Vial IV PUSH 3,000 units PRN PRN Administration aPTT 55 - 70 seconds Heparin Sodium/Dextrose 25,000 units in 250 mls @ 11 mls/hr 09/23/24 15:35 09/24/24 05:41 Heparin Sodium/D5w 100 Units/Ml IV CONT 1,100 units/hr .[id number] RADHA 11 mls/hr Titration Protocol 1,100 UNITS/HR Dextrose 1,000 mls @ 100 mls/hr 09/23/24 16:15 Dextrose 5% 1,000 Ml IVPB PRN PRN Hypoglycemia Protocol Insulin Aspart 2 - 5 units 09/23/24 18:00 09/24/24 09:33 Insulin Aspart (*Bkc) 100 Units/Ml SUB-Q Not Given Q6HR [facility] Protocol Insulin Glargine 20 units 09/23/24 21:00 09/23/24 22:04 Insulin Glargine (*Bkc) 100 Units/Ml SUB-Q 20 units HS RADHA Administration Levothyroxine Sodium 100 mcg 09/24/24 06:30 09/24/24 05:49 Levothyroxine Sodium 100 Mcg Tablet PO 100 mcg DAILY@0630 RADHA Administration Nitroglycerin 0.4 mg 09/23/24 19:12 Nitroglycerin Sl 0.4 Mg Tablet SUBLINGUAL Q5M PRN chest pain Rosuvastatin Calcium 5 mg 09/24/24 09:00 09/24/24 09:34 Rosuvastatin 5 Mg Tablet BY MOUTH 5 mg DAILY RADHA Administration Tamsulosin HCl 0.8 mg 09/23/24 23:40 09/23/24 23:52 Tamsulosin Hcl 0.4 Mg Capsule BY MOUTH 0.8 mg QHS RADHA Administration Radiology Results: ITS Impressions Chest X-Ray 09/23/24 15:50 Impression: 1: No acute cardiopulmonary disease. Labs Labs: Laboratory Results - last 24 hr 09/23/24 09/23/24 09/23/24 14:48 17:41 20:24 WBC 4.6 RBC 4.66 Hgb 14.3 Hct 44.1 MCV 94.6 MCH 30.7 MCHC 32.4 RDW 13.8 Plt Count 187 MPV 10.4 Immature Gran % (Auto) 0.2 Neut % (Auto) 67.8 Lymph % (Auto) 12.4 L Gove % (Auto) 13.7 H Eos % (Auto) 5.2 H Baso % (Auto) 0.7 Lymph # (Auto) 0.57 L Gove # (Auto) 0.6 Eos # (Auto) 0.2 Baso # (Auto) 0.0 Abs Immat Gran (auto) 0.01 Absolute Neuts (auto) 3.1 Absolute Nucleated RBC 0.000 Nucleated RBC % 0.0 PT 13.1 INR 1.0 APTT 27.0 Sodium 139 Potassium 4.8 Chloride 103 Carbon Dioxide 26 Anion Gap 10 BUN 29 H Creatinine 1.24 Estim Creat Clear Calc 48 Estimated GFR 56 L Glucose 159 H POC Capillary Glucose 236 H Calcium 9.9 Total Bilirubin 0.7 AST 32 ALT 22 Alkaline Phosphatase 74 Troponin I 0.118 H* 0.117 H* Total Protein 8.1 Albumin 4.8 Lipase 86 09/23/24 09/24/24 09/24/24 20:49 03:58 07:35 WBC 4.9 RBC 4.41 L Hgb 13.3 L Hct 42.0 MCV 95.2 MCH 30.2 MCHC 31.7 L RDW 13.8 Plt Count 168 MPV 10.8 H Immature Gran % (Auto) 0.4 Neut % (Auto) 67.1 Lymph % (Auto) 10.9 L Gove % (Auto) 14.2 H Eos % (Auto) 6.4 H Baso % (Auto) 1.0 Lymph # (Auto) 0.53 L Gove # (Auto) 0.7 H Eos # (Auto) 0.3 Baso # (Auto) 0.1 Abs Immat Gran (auto) 0.02 Absolute Neuts (auto) 3.3 Absolute Nucleated RBC 0.000 Nucleated RBC % 0.0 PT 13.8 INR 1.0 APTT 56.2 H 83.8 H Sodium 138 Potassium 4.3 Chloride 106 Carbon Dioxide 27 Anion Gap 5 BUN 30 H Creatinine 1.30 Estim Creat Clear Calc 44 Estimated GFR 53 L Glucose 94 POC Capillary Glucose 93 Calcium 9.2 Total Bilirubin AST ALT Alkaline Phosphatase Troponin I 0.098 H* Total Protein Albumin Lipase 09/24/24 08:46 WBC RBC Hgb Hct MCV MCH MCHC RDW Plt Count MPV Immature Gran % (Auto) Neut % (Auto) Lymph % (Auto) Gove % (Auto) Eos % (Auto) Baso % (Auto) Lymph # (Auto) Gove # (Auto) Eos # (Auto) Baso # (Auto) Abs Immat Gran (auto) Absolute Neuts (auto) Absolute Nucleated RBC Nucleated RBC % PT INR APTT Sodium Potassium Chloride Carbon Dioxide Anion Gap BUN Creatinine Estim Creat Clear Calc Estimated GFR Glucose POC Capillary Glucose 101 Calcium Total Bilirubin AST ALT Alkaline Phosphatase Troponin I Total Protein Albumin Lipase Quality VTE Prophylaxis VTE prophylaxis: mechanical ordered and pharmacologic ordered Hospitalist MIPS Advance Care Plan I have confirmed that the patient's Advanced Care Plan is present, code status is documented, or surrogate decision maker is listed in patient medical record.: Yes Medication Reconciliation I have utilized all available resources to obtain, update and review the patients current medications (includes all prescriptions, OTC, herbals, cannabis, and nutritional supplements).: Yes
--- NOTE | 2024-09-24 11:00 | P.CONCA_ITS ---
Assessment and Plan Assessment and plan (1) NSTEMI (non-ST elevated myocardial infarction): Code(s): I21.4 - Non-ST elevation (NSTEMI) myocardial infarction Status: Acute (2) Atrial flutter: Qualifiers: Atrial flutter type: unspecified Qualified Code(s): I48.92 - Unspecified atrial flutter Code(s): I48.92 - Unspecified atrial flutter Status: Acute (3) History of coronary artery stent placement: Code(s): Z95.5 - Presence of coronary angioplasty implant and graft Status: Acute Plan 71-year-old man with coronary artery disease status post PCI, persistent atrial flutter, diabetes, hypothyroidism, and hyperlipidemia was referred by his primary care physician to be further evaluated in the emergency room for elevated troponin collected secondary to exertional dyspnea Non ST elevation MD -we discussed the risks, benefits, alternatives to cardiac catheterization with possible PCI -all questions were answered and after discussing with his family, patient decided to proceed forward -echocardiogram can be performed outpatient if not done today Coronary artery disease status post PCI -currently on aspirin 325 mg daily -continue rosuvastatin 5 mg every evening -previously unable to tolerate higher doses -will need outpatient evaluation for PCSK9 inhibitors versus inclisiran Persistent atrial flutter -he states the he has known atrial flutter for many years now and unwilling to pay the cost of DOAC -I have recommended well from however he is adamantly against consuming warfarin -he previously had discussions and had accepted the elevated risk of stroke and would prefer to be continue on aspirin 325 mg p.o. daily History of Present Illness History of Present Illness Consult date/time: 09/24/24 11:00 Requesting physician: Lala Templeton APRN Consult reason: shortness of breath Reason For Visit: +trop Narrative: 71-year-old man with coronary artery disease status post PCI, persistent atrial flutter, diabetes, hypothyroidism, and hyperlipidemia was referred by his primary care physician to be further evaluated in the emergency room for elevated troponin collected secondary to exertional dyspnea. For the last 2 weeks, he has been experiencing shortness of breath with physical activity that he has previously able to complete without cardiopulmonary limitations. Prior to his previous MD, he had experienced chest discomfort which she did not experience this time around. Previously he had been able to mow his lawn as well as walk up hill however now he is experiencing significant shortness of breath with that degree of physical activity and is preventing him from completing his typical day-to-day activities. Review of Systems 2 Cardiovascular: Cardiovascular: Reports as per HPI Respiratory: Respiratory: Reports as per HPI [facility] Past Medical History Medical History Abdominal bloating Abnormal finding of blood chemistry Ankle fracture, right Anxiety and depression Asbestos exposure ASHD (arteriosclerotic heart disease) >4 METs Back pain Bilateral cataracts BMI 21.0-21.9, adult BMI 22.0-22.9, adult BMI 23.0-23.9, adult BMI 24.0-24.9, adult BMI 26.0-26.9,adult Borderline abnormal TFTs Carotid stenosis Cervical spondylosis Chronic fatigue Chronic sore throat CKD (chronic kidney disease), stage II Colon cancer screening Cough COVID-19 vaccine series completed Depression Diabetes mellitus type 2, insulin dependent DJD (degenerative joint disease) Dysphagia Elevated homocysteine Elevated PSA Encounter for Medicare annual wellness exam Encounter for routine adult health examination with abnormal findings Encounter for routine adult health examination without abnormal findings Follow up Grief Gross hematuria Hearing loss History of cataract History of head and neck cancer Hospital discharge follow-up Hx of bladder cancer Hyperlipidemia Hypersomnolence Hyperventilation Hypothyroidism (acquired) Inguinal hernia 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 Dr. Morgan History of coronary artery stent placement x6, last one in 2017 S/P cataract surgery Family History Family History Father Family history of lung disease Mother Family history of malignant neoplasm of gastrointestinal tract Social History Social History Smoking status: Never smoker Second hand tobacco smoke exposure: No Alcohol intake: current Alcohol use details: 2-3 BOTTLES PER WK Substance use: current Substance use type: marijuana Other substance usage details: drinks 3-4 bottles of wine a week and uses medical marijuana Last use: 02/09/24 Do You Feel Safe in your Home?: Yes Lack of Transportation: No Lack of Food: Never True Current Housing: I Have Housing Concerned About Future Housing: No Difficulty Paying Gas/Electric Bills: No Difficulty Paying for Meds: No Currently Unemployed: No Education: Associate Degree Difficulty w/ Childcare or Family Care: No Living arrangements: alone Gender identity (if verbalized by the patient): Male Spiritual care concerns: No Meds Home Medications and Allergies Home Medications ?Medication ?Instructions ?Recorded ?Confirmed ?Type mecobalamin (vitamin B12) 1,000 1,000 mcg sublingual DAILY 05/04/19 09/23/24 History mcg disintegrating tablet,sublingual omega-3 fatty acids 1,000 mg 1,000 mg PO BID 09/07/19 09/23/24 History capsule (Fish Oil Concentrate) OneTouch Ultra2 Meter #1 ea 04/28/20 09/23/24 Rx (blood-glucose meter) aspirin 325 mg tablet 325 mg PO DAILY 10/22/22 09/23/24 History cholecalciferol (vitamin D3) 50 6,000 unit PO DAILY 01/31/24 09/23/24 History mcg (2,000 unit) capsule ibuprofen 200 mg capsule 400 mg PO BID PRN Pain 02/12/24 09/23/24 History calcium polycarbophil 625 mg 625 mg PO DAILY 02/21/24 09/23/24 History tablet (FiberCon) empagliflozin 12.5 mg-metformin ER 1 tablet PO DAILY #90 ea 03/30/24 09/23/24 Rx 1,000 mg tablet,extended rel 24 hr (Synjardy XR) BD Ultra-Fine Mini Pen Needle 31 #100 ea 04/09/24 09/23/24 Rx gauge x 3/16 (pen needle, diabetic) rosuvastatin 5 mg tablet See Rx Instructions .Route 05/04/24 09/23/24 Rx .COMPLEX #90 tabs Antiva BYMOUTH 06/22/24 09/23/24 History S Alpha -Lipoic acid 600 mg BYMOUTH DAILY 06/22/24 09/23/24 History blood sugar diagnostic (OneTouch #50 ea 07/02/24 09/23/24 Rx Ultra Test strips) folic acid 1 mg tablet 1 mg PO DAILY #90 tabs 08/26/24 09/23/24 Rx Curcumin 1320 mg daily 1,320 mg PO DAILY 09/01/24 09/23/24 History levothyroxine 100 mcg capsule 100 mcg PO DAILY #90 caps 09/15/24 09/23/24 Rx tamsulosin 0.4 mg capsule See Rx Instructions .Route 09/15/24 09/23/24 Rx .COMPLEX #180 caps insulin glargine 100 unit/mL (3 See Rx Instructions .Route .COMPLEX 09/23/24 09/23/24 History mL) subcutaneous pen (Basaglar KwikPen U-100 Insulin) nitroglycerin 0.4 mg sublingual 0.4 mg sublingual Q5M PRN chest 09/23/24 09/23/24 Rx tablet pain #25 tabs Allergies Allergy/AdvReac Type Severity Reaction Status Date / Time atorvastatin AdvReac Intermediate Other Verified 09/23/24 15:47 isosorbide AdvReac Intermediate Unknown Verified 09/23/24 15:47 Vital Signs Vital Signs - 24 hr 09/23/24 14:39 09/23/24 15:46 09/23/24 16:48 Temperature 36.2 C L Pulse Rate 77 67 58 L Respiratory Rate 16 18 18 Blood Pressure 173/80 H 145/108 H 157/94 H Pulse Oximetry 99 99 98 Oxygen Delivery Room Air 09/23/24 17:22 09/23/24 18:37 09/23/24 20:22 Temperature 36.5 C 36.7 C Pulse Rate 60 67 78 Respiratory Rate 18 18 15 Blood Pressure 146/77 H 137/54 L Pulse Oximetry 99 98 96 Oxygen Delivery 09/24/24 00:00 09/24/24 04:00 09/24/24 07:44 Temperature 36.5 C 36.6 C 36.6 C Pulse Rate 68 57 L 61 Respiratory Rate 18 20 18 Blood Pressure 137/66 100/38 L 114/57 L Pulse Oximetry 96 100 96 Oxygen Delivery Exam 2 Const: General: comfortable HENMT: Mouth: Yes moist mucous membranes Eyes: EOM: EOMs intact bilaterally Neck: Neck: no JVD Resp: Effort & Inspection: normal respiratory effort Auscultation: clear to auscultation bilaterally Cardio: Rate: regular rate Rhythm: abnormal rhythm Neuro: Speech: normal speech Extrem: General: no pedal edema Results Labs and Meds 09/24/24 03:58 09/24/24 03:58 Lab results: Cardiac Enzymes 09/23/24 09/23/24 09/23/24 Range/Units 14:48 17:41 20:49 AST 32 (17-59) U/L Troponin I 0.118 H* 0.117 H* 0.098 H* (0.000-0.034) ng/mL Coagulation 09/23/24 09/23/24 09/24/24 Range/Units 14:48 20:49 03:58 PT 13.1 13.8 (11.1-14.7) Seconds APTT 27.0 56.2 H 83.8 H (22.3-36.8) Seconds CBC 09/23/24 09/24/24 Range/Units 14:48 03:58 WBC 4.6 4.9 (4.5-10.0) K/mm3 RBC 4.66 4.41 L (4.6-6.20) M/mm3 Hgb 14.3 13.3 L (14.0-18.0) g/dL Hct 44.1 42.0 (42.0-52.0) % Plt Count 187 168 (150-375) k/mm3 Lymph # (Auto) 0.57 L 0.53 L (0.9-3.2) K/mm3 [place] # (Auto) 0.6 0.7 H (0.1-0.6) K/mm3 Eos # (Auto) 0.2 0.3 (0-0.3) K/mm3 Baso # (Auto) 0.0 0.1 (0.0-0.1) K/mm3 Comprehensive Metabolic Panel 09/23/24 09/24/24 Range/Units 14:48 03:58 Sodium 139 138 (137-145) mmol/L Potassium 4.8 4.3 (3.4-5.0) mmol/L Chloride 103 106 (98-107) mmol/L Carbon Dioxide 26 27 (22-30) mmol/L BUN 29 H 30 H (9-20) mg/dL Creatinine 1.24 1.30 (0.7-1.3) mg/dL Glucose 159 H 94 (65-110) mg/dL Calcium 9.9 9.2 (8.4-10.2) mg/dL AST 32 (17-59) U/L ALT 22 (6-50) U/L Alkaline Phosphatase 74 (38-126) U/L Total Protein 8.1 (6.3-8.2) g/dL Albumin 4.8 (3.5-5.1) g/dL Intake and Output 09/23/24 09/24/24 09/24/24 23:59 07:59 15:59 Intake Total 54.3 204.1 Balance 54.3 204.1 Intake: IV 54.3 84.1 Heparin Sod/D5w 100 Units/ml 25 54.3 84.1 ,000 units In 250 ml @ 1,100 UNITS/HR 11 mls/hr IV CONT . [id number] [facility] Rx#:[id number] Oral 120 Patient Weight 09/24/24 23:59 Weight 75.9 kg
--- NOTE | 2024-09-24 11:16 | WPDHPUPDATE1 ---
History and Physical Update Update Date/Time: 09/24/24 09:16 History and Physical has been reviewed, including an updated exam of the patient. There are NO changes in the patient's condition. Risks, benefits, and alternatives have been discussed and questions answered. Patient agrees to proceed with procedure.
--- NOTE | 2024-09-24 11:16 | WPDMODSED ---
Moderate Sedation Note-Pt Data Patient Data Allergies Allergy/AdvReac Type Severity Reaction Status Date / Time atorvastatin AdvReac Intermediate Other Verified 09/23/24 15:47 isosorbide AdvReac Intermediate Unknown Verified 09/23/24 15:47 Home Medications ?Medication ?Instructions ?Recorded ?Confirmed ?Type mecobalamin (vitamin B12) 1,000 1,000 mcg sublingual DAILY 05/04/19 09/23/24 History mcg disintegrating tablet,sublingual omega-3 fatty acids 1,000 mg 1,000 mg PO BID 09/07/19 09/23/24 History capsule (Fish Oil Concentrate) OneTouch Ultra2 Meter #1 ea 04/28/20 09/23/24 Rx (blood-glucose meter) aspirin 325 mg tablet 325 mg PO DAILY 10/22/22 09/23/24 History cholecalciferol (vitamin D3) 50 6,000 unit PO DAILY 01/31/24 09/23/24 History mcg (2,000 unit) capsule ibuprofen 200 mg capsule 400 mg PO BID PRN Pain 02/12/24 09/23/24 History calcium polycarbophil 625 mg 625 mg PO DAILY 02/21/24 09/23/24 History tablet (FiberCon) empagliflozin 12.5 mg-metformin ER 1 tablet PO DAILY #90 ea 03/30/24 09/23/24 Rx 1,000 mg tablet,extended rel 24 hr (Synjardy XR) BD Ultra-Fine Mini Pen Needle 31 #100 ea 04/09/24 09/23/24 Rx gauge x 3/16 (pen needle, diabetic) rosuvastatin 5 mg tablet See Rx Instructions .Route 05/04/24 09/23/24 Rx .COMPLEX #90 tabs Antiva BYMOUTH 06/22/24 09/23/24 History S Alpha -Lipoic acid 600 mg BYMOUTH DAILY 06/22/24 09/23/24 History blood sugar diagnostic (OneTouch #50 ea 07/02/24 09/23/24 Rx Ultra Test strips) folic acid 1 mg tablet 1 mg PO DAILY #90 tabs 08/26/24 09/23/24 Rx Curcumin 1320 mg daily 1,320 mg PO DAILY 09/01/24 09/23/24 History levothyroxine 100 mcg capsule 100 mcg PO DAILY #90 caps 09/15/24 09/23/24 Rx tamsulosin 0.4 mg capsule See Rx Instructions .Route 09/15/24 09/23/24 Rx .COMPLEX #180 caps insulin glargine 100 unit/mL (3 See Rx Instructions .Route .COMPLEX 09/23/24 09/23/24 History mL) subcutaneous pen (Basaglar KwikPen U-100 Insulin) nitroglycerin 0.4 mg sublingual 0.4 mg sublingual Q5M PRN chest 09/23/24 09/23/24 Rx tablet pain #25 tabs Current Medications: Active Medications Acetaminophen (Acetaminophen 325 Mg Tablet) 650 mg PO Q4H PRN PRN Reason: Mild Pain (1-3) or Fever Aspirin (Aspirin 325 Mg Tablet) 325 mg PO DAILY [facility] Last Admin: 09/24/24 09:34 Dose: 325 mg Dextrose (Dextrose 50% 25 Gm/50 Ml Syringe) 12.5 gm IV PUSH PRN PRN; Protocol PRN Reason: Hypoglycemia Glucagon (Glucagon For Inj 1 Mg Vial) 1 mg IM PRN PRN; Protocol PRN Reason: Hypoglycemia Glucose (Glucose Oral Gel 15 Gm Of Glucse In 37.5 Gm Tube) 15 gm PO PRN PRN; Protocol PRN Reason: Hypoglycemia Heparin Sodium (Porcine) (Heparin Sodium 5,000 Units/Ml Vial) 4,000 units IV PUSH PRN PRN PRN Reason: aPTT less than 55 seconds Heparin Sodium (Porcine) (Heparin Sodium 5,000 Units/Ml Vial) 3,000 units IV PUSH PRN PRN PRN Reason: aPTT 55 - 70 seconds Last Admin: 09/23/24 22:02 Dose: 3,000 units Heparin Sodium/Dextrose (Heparin Sodium/D5w 100 Units/Ml) 25,000 units in 250 mls @ 11 mls/hr IV CONT .[id number] RADHA; Protocol Last Titration: 09/24/24 05:41 Dose: 1,100 units/hr, 11 mls/hr Dextrose (Dextrose 5% 1,000 Ml) 1,000 mls @ 100 mls/hr IVPB PRN PRN; Protocol PRN Reason: Hypoglycemia Insulin Aspart (Insulin Aspart (*Bkc) 100 Units/Ml) 2 - 5 units SUB-Q Q6HR [facility]; Protocol Last Admin: 09/24/24 09:33 Dose: Not Given Insulin Glargine (Insulin Glargine (*Bkc) 100 Units/Ml) 20 units SUB-Q HS [facility] Last Admin: 09/23/24 22:04 Dose: 20 units Levothyroxine Sodium (Levothyroxine Sodium 100 Mcg Tablet) 100 mcg PO DAILY@0630 [facility] Last Admin: 09/24/24 05:49 Dose: 100 mcg Nitroglycerin (Nitroglycerin Sl 0.4 Mg Tablet) 0.4 mg SUBLINGUAL Q5M PRN PRN Reason: chest pain Rosuvastatin Calcium (Rosuvastatin 5 Mg Tablet) 5 mg BY MOUTH DAILY [facility] Last Admin: 09/24/24 09:34 Dose: 5 mg Tamsulosin HCl (Tamsulosin Hcl 0.4 Mg Capsule) 0.8 mg BY MOUTH QHS [facility] Last Admin: 09/23/24 23:52 Dose: 0.8 mg Sedation/Anesthesia: No previous sedation/anesthesia problems (including family history). [facility] Past Medical History Medical History Abdominal bloating Abnormal finding of blood chemistry Ankle fracture, right Anxiety and depression Asbestos exposure ASHD (arteriosclerotic heart disease) >4 METs Back pain Bilateral cataracts BMI 21.0-21.9, adult BMI 22.0-22.9, adult BMI 23.0-23.9, adult BMI 24.0-24.9, adult BMI 26.0-26.9,adult Borderline abnormal TFTs Carotid stenosis Cervical spondylosis Chronic fatigue Chronic sore throat CKD (chronic kidney disease), stage II Colon cancer screening Cough COVID-19 vaccine series completed Depression Diabetes mellitus type 2, insulin dependent DJD (degenerative joint disease) Dysphagia Elevated homocysteine Elevated PSA Encounter for Medicare annual wellness exam Encounter for routine adult health examination with abnormal findings Encounter for routine adult health examination without abnormal findings Follow up Grief Gross hematuria Hearing loss History of cataract History of head and neck cancer Hospital discharge follow-up Hx of bladder cancer Hyperlipidemia Hypersomnolence Hyperventilation Hypothyroidism (acquired) Inguinal hernia 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 Dr. Morgan History of coronary artery stent placement x6, last one in 2017 S/P cataract surgery Family History Family History Father Family history of lung disease Mother Family history of malignant neoplasm of gastrointestinal tract Social History Social History Smoking status: Never smoker Second hand tobacco smoke exposure: No Alcohol intake: current Alcohol use details: 2-3 BOTTLES PER WK Substance use: current Substance use type: marijuana Other substance usage details: drinks 3-4 bottles of wine a week and uses medical marijuana Last use: 02/09/24 Do You Feel Safe in your Home?: Yes Lack of Transportation: No Lack of Food: Never True Current Housing: I Have Housing Concerned About Future Housing: No Difficulty Paying Gas/Electric Bills: No Difficulty Paying for Meds: No Currently Unemployed: No Education: Associate Degree Difficulty w/ Childcare or Family Care: No Living arrangements: alone Gender identity (if verbalized by the patient): Male Spiritual care concerns: No Mod Sed Physical Exam Physical Exam Pre Procedural Exam: Normal: Lungs and Heart Rate and Variation: Heart Rhythm (a flutter) Hours since solid foods: 12 Hours since liquid intake: 12 Mallampati Classification: class II Internal Medicine - PN: Obj Da Vital Signs Vital Signs: Vital Signs - 24 hr 09/23/24 14:39 09/23/24 15:46 09/23/24 16:48 Temperature 36.2 C L Pulse Rate 77 67 58 L Respiratory Rate 16 18 18 Blood Pressure 173/80 H 145/108 H 157/94 H Pulse Oximetry 99 99 98 Oxygen Delivery Room Air 09/23/24 17:22 09/23/24 18:37 09/23/24 20:22 Temperature 36.5 C 36.7 C Pulse Rate 60 67 78 Respiratory Rate 18 18 15 Blood Pressure 146/77 H 137/54 L Pulse Oximetry 99 98 96 Oxygen Delivery 09/24/24 00:00 09/24/24 04:00 09/24/24 07:44 Temperature 36.5 C 36.6 C 36.6 C Pulse Rate 68 57 L 61 Respiratory Rate 18 20 18 Blood Pressure 137/66 100/38 L 114/57 L Pulse Oximetry 96 100 96 Oxygen Delivery Intake/Output Intake/Output: Intake & Output 09/21/24 09/22/24 09/23/24 09/24/24 23:59 23:59 23:59 23:59 Intake Total 54.3 204.1 Balance 54.3 204.1 Meds/Results Medications: Active Medications Generic Name Dose Route Start Last Admin Trade Name Freq PRN Reason Stop Dose Admin Acetaminophen 650 mg 09/23/24 16:16 Acetaminophen 325 Mg Tablet PO Q4H PRN Mild Pain (1-3) or Fever Aspirin 325 mg 09/24/24 09:00 09/24/24 09:34 Aspirin 325 Mg Tablet PO 325 mg DAILY RADHA Administration Dextrose 12.5 gm 09/23/24 16:15 Dextrose 50% 25 Gm/50 Ml Syringe IV PUSH PRN PRN Hypoglycemia Protocol Glucagon 1 mg 09/23/24 16:15 Glucagon For Inj 1 Mg Vial IM PRN PRN Hypoglycemia Protocol Glucose 15 gm 09/23/24 16:15 Glucose Oral Gel 15 Gm Of Glucse In 37.5 Gm Tube PO PRN PRN Hypoglycemia Protocol Heparin Sodium (Porcine) 4,000 units 09/23/24 15:35 Heparin Sodium 5,000 Units/Ml Vial IV PUSH PRN PRN aPTT less than 55 seconds Heparin Sodium (Porcine) 3,000 units 09/23/24 15:35 09/23/24 22:02 Heparin Sodium 5,000 Units/Ml Vial IV PUSH 3,000 units PRN PRN Administration aPTT 55 - 70 seconds Heparin Sodium/Dextrose 25,000 units in 250 mls @ 11 mls/hr 09/23/24 15:35 09/24/24 05:41 Heparin Sodium/D5w 100 Units/Ml IV CONT 1,100 units/hr .[id number] [facility] 11 mls/hr Titration Protocol 1,100 UNITS/HR Dextrose 1,000 mls @ 100 mls/hr 09/23/24 16:15 Dextrose 5% 1,000 Ml IVPB PRN PRN Hypoglycemia Protocol Insulin Aspart 2 - 5 units 09/23/24 18:00 09/24/24 09:33 Insulin Aspart (*Bkc) 100 Units/Ml SUB-Q Not Given Q6HR [facility] Protocol Insulin Glargine 20 units 09/23/24 21:00 09/23/24 22:04 Insulin Glargine (*Bkc) 100 Units/Ml SUB-Q 20 units HS [facility] Administration Levothyroxine Sodium 100 mcg 09/24/24 06:30 09/24/24 05:49 Levothyroxine Sodium 100 Mcg Tablet PO 100 mcg DAILY@0630 RAD[facility] Administration Nitroglycerin 0.4 mg 09/23/24 19:12 Nitroglycerin Sl 0.4 Mg Tablet SUBLINGUAL Q5M PRN chest pain Rosuvastatin Calcium 5 mg 09/24/24 09:00 09/24/24 09:34 Rosuvastatin 5 Mg Tablet BY MOUTH 5 mg DAILY [facility] Administration Tamsulosin HCl 0.8 mg 09/23/24 23:40 09/23/24 23:52 Tamsulosin Hcl 0.4 Mg Capsule BY MOUTH 0.8 mg QHS RAD[facility] Administration Radiology Results: ITS Impressions Chest X-Ray 09/23/24 15:50 Impression: 1: No acute cardiopulmonary disease. Labs 09/24/24 03:58 09/24/24 03:58 Labs: Laboratory Results - last 24 hr 09/23/24 09/23/24 09/23/24 14:48 17:41 20:24 WBC 4.6 RBC 4.66 Hgb 14.3 Hct 44.1 MCV 94.6 MCH 30.7 MCHC 32.4 RDW 13.8 Plt Count 187 MPV 10.4 Immature Gran % (Auto) 0.2 Neut % (Auto) 67.8 Lymph % (Auto) 12.[address] % (Auto) 13.7 H Eos % (Auto) 5.2 H Baso % (Auto) 0.7 Lymph # (Auto) 0.[address] # (Auto) 0.6 Eos # (Auto) 0.2 Baso # (Auto) 0.0 Abs Immat Gran (auto) 0.01 Absolute Neuts (auto) 3.1 Absolute Nucleated RBC 0.000 Nucleated RBC % 0.0 PT 13.1 INR 1.0 APTT 27.0 Sodium 139 Potassium 4.8 Chloride 103 Carbon Dioxide 26 Anion Gap 10 BUN 29 H Creatinine 1.24 Estim Creat Clear Calc 48 Estimated GFR 56 L Glucose 159 H POC Capillary Glucose 236 H Calcium 9.9 Total Bilirubin 0.7 AST 32 ALT 22 Alkaline Phosphatase 74 Troponin I 0.118 H* 0.117 H* Total Protein 8.1 Albumin 4.8 Lipase 86 09/23/24 09/24/24 09/24/24 20:49 03:58 07:35 WBC 4.9 RBC 4.41 L Hgb 13.3 L Hct 42.0 MCV 95.2 MCH 30.2 MCHC 31.7 L RDW 13.8 Plt Count 168 MPV 10.8 H Immature Gran % (Auto) 0.4 Neut % (Auto) 67.1 Lymph % (Auto) 10.[address] % (Auto) 14.2 H Eos % (Auto) 6.4 H Baso % (Auto) 1.0 Lymph # (Auto) 0.[address] # (Auto) 0.7 H Eos # (Auto) 0.3 Baso # (Auto) 0.1 Abs Immat Gran (auto) 0.02 Absolute Neuts (auto) 3.3 Absolute Nucleated RBC 0.000 Nucleated RBC % 0.0 PT 13.8 INR 1.0 APTT 56.2 H 83.8 H Sodium 138 Potassium 4.3 Chloride 106 Carbon Dioxide 27 Anion Gap 5 BUN 30 H Creatinine 1.30 Estim Creat Clear Calc 44 Estimated GFR 53 L Glucose 94 POC Capillary Glucose 93 Calcium 9.2 Total Bilirubin AST ALT Alkaline Phosphatase Troponin I 0.098 H* Total Protein Albumin Lipase 09/24/24 08:46 WBC RBC Hgb Hct MCV MCH MCHC RDW Plt Count MPV Immature Gran % (Auto) Neut % (Auto) Lymph % (Auto) Lane % (Auto) Eos % (Auto) Baso % (Auto) Lymph # (Auto) Lane # (Auto) Eos # (Auto) Baso # (Auto) Abs Immat Gran (auto) Absolute Neuts (auto) Absolute Nucleated RBC Nucleated RBC % PT INR APTT Sodium Potassium Chloride Carbon Dioxide Anion Gap BUN Creatinine Estim Creat Clear Calc Estimated GFR Glucose POC Capillary Glucose 101 Calcium Total Bilirubin AST ALT Alkaline Phosphatase Troponin I Total Protein Albumin Lipase ASA Classification/Sedation ASA Classification/Sedation ASA Class: III Emergent: No Risks: Risks, benefits and alternatives explained and patient/family accepted plan for sedation. Patient re-evaluated immediately prior to sedation.
--- NOTE | 2024-09-24 13:20 | WPDCARDPROC ---
Cardiac Cath Procedure Note Date of procedure:: 09/24/24 Performing physician:: CATHETERIZATION LABORATORY REPORT Procedure Date: 09/24/2024 Referring Physician: Dr. Elizabeth Anesthesia: Versed and Fentanyl were ordered and given in my presence at 1156, procedure ended at 1315. Supervision of nurse, Diann Haro monitored moderate sedation with 2mg Versed and 250mcg Fentanyl was provided for 79 minutes. Pre-op Diagnosis: NSTEMI Post-op Diagnosis: NSTEMI Procedure(s): Left heart catheterization with coronary angiography Access Site: Right common femoral artery Brief History and Clinical Indications: 71-year-old man with coronary artery disease status post PCI, persistent atrial flutter, diabetes, hypothyroidism, and hyperlipidemia was referred by his primary care physician to be further evaluated in the emergency room for elevated troponin collected secondary to exertional dyspnea now presents to define his coronary anatomy with possible PCI. All risks, benefits and alternatives to left heart catheterization with or without percutaneous coronary intervention was discussed at length with the patient. Risk of complications including but not limited to bleeding, infection, arrhythmia, stroke, worsening kidney function, blood loss, groin hematoma, limb loss, emergency coronary artery bypass grafting, and even were discussed with the patient and all questions were answered. The patient understood and wished to proceed. Time out called, patient name, date of , medical record number, allergies, procedure performed, identify Search Optimization Analyst, patient and staff member concurred with accurate data, procedure carried on. Findings: LEFT HEART CATHETERIZATION FINDINGS: 1. Left main: The left main coronary artery has distal 10% stenosis. 2. Left anterior descending: The LAD provides 1 significant diagonal branch. The diagonal branch is angiographically free of high-grade stenosis. The mid LAD after the takeoff of the 2nd diagonal branch has a 60-70% stenosis. 3. Left circumflex: The left circumflex artery is a nondominant vessel the has 1 large significant OM1 branch. The left circumflex is stented from ostium to proximal into the OM1 branch. There is mild diffuse in-stent restenoses. There is myocardial bridging right after the OM1 stent. The left circumflex itself has 70% stenosis after the takeoff of the OM1 branch. This is followed by an area of previously placed stent that has distal 90% in-stent restenosis. 4. Right coronary artery: The RCA has 95% ostial stenosis. This is followed by an area of patent stent. There appears to be LAD 70% stenosis in the distal RCA. The distal vessel was ill defined as the catheter was unable to sit at the ostium of the RCA stable. 5. Left ventricle: The aortic valve was not crossed. 6. Opening AO pressure 175/75 Description of Procedure: Informed consent signed and placed in the chart. Patient transferred to oil laboratory analyst room. Prepped and draped in usual sterile fashion. 2% lidocaine was subcutaneously injected into the right wrist area. 22 gauge vena puncture catheter was used to access the right radial artery however the micro access wire was unable to advance into the artery. Ultrasound was used to assess the radial artery which was deemed to be very small and diseased. At this time the procedure was converted to femoral approach. 2% lidocaine was subcutaneously injected in right groin area. Micropuncture needle used to access right common femoral artery with Seldinger technique under ultrasound and fluoroscopic guidance. J wire advanced, micropuncture cannula placed and exchanged out for 6 Vietnamese sheath. JL4 diagnostic catheter engaged Left Main Coronary Artery. JR4 diagnostic catheter engaged Right Coronary Artery. Multiple orthogonal angiogram obtained and reviewed After review of the images in its entirety, the decision was made to treat the ostial RCA lesion. Heparin was used for anticoagulation (ACT maintained above 250) Patient loaded with heparin at 70 units/kg. A 6 Vietnamese JR4 guide was unable to sit in the ostium of the RCA and kept popping out into the ascending aorta. A AL 0.75 and 3DRC guide was also meet with similar results and at this time, decision was made to leave the lesion in its current state. No angiographic complications identified. Assessment: Severe multivessel CAD Post Operative Condition: Stable No significant blood loss Disposition: Floor Plan: Will discuss with the patient transfer to outside facility for re-attempt at PCI versus outpatient follow-up while on medical therapy. Diogo Awad Interventional Cardiology
[2024-09-24 13:25] LABS: Activated Clotting Time 216 SEC (74-137)
[2024-09-24 14:34] LABS: Glucose Point of Care 93 mg/dl (65-105)
[2024-09-24] MEDS: SODIUM CHLORIDE 0.9% IV 1,000 ML 125 ML IV CONT (15:07)
[2024-09-24] MEDS: NIFEdipine 10 MG CAPSULE PO (16:39)
[2024-09-24 17:26] LABS: Activated Clotting Time 170 SEC (74-137)
[2024-09-24 17:26] LABS: Activated Clotting Time 147 SEC (74-137)
--- NOTE | 2024-09-24 17:43 | PC.NURSE ---
Arrived back to the room via stretcher from the cardiac label remover. Alert and oriented upon arrival. Transferred from the stretcher to the bed without difficulty. Denies chest pain or discomfort at this time. Vital signs obtained and stable. Dressing to the right wrist is dry, clean and intact. Per RN giving report it was a failed attempt at cath site, patient is able to move the wrist without complications. Right groin site is noted to be dry, clean and intact with no signs of hematoma. Right pedal pulse is palpable. Right leg and foot is pink in color with good capillary refill, and warm skin to touch. No signs of occlusion at this time. Remains on strict bedrest until 8pm. Patient verbalizes understanding at this time. Bed is placed at 30 degrees as ordered by physician. Family is at the bedside. Patient dinner tray was set up and meat cut. Water was refreshened.
[2024-09-24 20:03] LABS: Glucose Point of Care 159 mg/dl (65-105)
[2024-09-24] MEDS: TAMSULOSIN HCL 0.4 MG CAPSULE 0.8 MG BY MOUTH (20:32)
[2024-09-24] MEDS: INSULIN GLARGINE (*BKC) 100 UNITS/ML 20 UNITS SUB-Q (20:32)
[2024-09-24] MEDS: HEPARIN SOD/D5W 100 UNITS/ML 25,000 UNITS/250 ML BAG 11 UNITS IV CONT (22:33)
[2024-09-25] VITALS (9 sets, daily range): BP systolic 100–123; BP diastolic 55–73; PULSE 57–100; RESP 18–20; TEMP 36.5–36.6; O2SAT 96–100
[2024-09-25] MEDS: HEPARIN SODIUM 5,000 UNITS/ML VIAL 3000 UNITS IV PUSH (05:58)
[2024-09-25] MEDS: LEVOTHYROXINE SODIUM 100 MCG TABLET PO (06:33)
[2024-09-25 07:39] LABS: Glucose Point of Care 84 mg/dl (65-105)
[2024-09-25] MEDS: ROSUVASTATIN 5 MG TABLET BY MOUTH (07:58)
[2024-09-25] MEDS: ASPIRIN 325 MG TABLET PO (07:58)
--- NOTE | 2024-09-25 10:23 | P.DS_ITS ---
DS: Admitting Diagnosis Discharge Date 09/25/2024 Admitting Diagnosis Chest pain DS: Discharge Diagnosis Discharge Diagnosis (1) NSTEMI (non-ST elevated myocardial infarction): Code(s): I21.4 - Non-ST elevation (NSTEMI) myocardial infarction Status: Acute Assessment and Plan: Please refer to hospital course for brief summary Cardiology consulted Underwent cardiac catheterization (2) Diabetes mellitus type 2, insulin dependent: Code(s): E11.9 - Type 2 diabetes mellitus without complications; Z79.4 - long-term (current) use of insulin Status: Acute Assessment and Plan: Currently NPO Accu-Cheks q.6 with SSI Lantus nightly Hold home metformin (3) Hypothyroidism (acquired): Code(s): E03.9 - Hypothyroidism, unspecified Status: Acute Assessment and Plan: Continue levothyroxine (4) Hyperlipidemia: Qualifiers: Hyperlipidemia type: mixed hyperlipidemia Qualified Code(s): E78.2 - Mixed hyperlipidemia Code(s): E78.5 - Hyperlipidemia, unspecified Status: Acute Assessment and Plan: Continue statin DS: Summary Hospital Course Hospital Course: 79-year-old male presents to the emergency room with elevated troponin. He went to his PCP with shortness of breath found have an elevated troponin consent to the hospital for further workup. He states that he went to his PCP is over the last month or 2 he has noticed increased shortness of breath with activity which has got worse over the last couple days. He denies actual chest pain but states he has a sensation in his chest that is hard to describe. Patient denies nausea vomiting diaphoresis or diarrhea. His troponin was 0.118. Rest his blood work is within normal limits. Chest x- ray shows no acute process. EKG shows atrial flutter rate of 68. Cardiology consulted. Patient underwent cardiac catheterization. 1. Left main: The left main coronary artery has distal 10% stenosis. 2. Left anterior descending: The LAD provides 1 significant diagonal branch. The diagonal branch is angiographically free of high-grade stenosis. The mid LAD after the takeoff of the 2nd diagonal branch has a 60-70% stenosis. 3. Left circumflex: The left circumflex artery is a nondominant vessel the has 1 large significant OM1 branch. The left circumflex is stented from ostium to proximal into the OM1 branch. There is mild diffuse in-stent restenoses. There is myocardial bridging right after the OM1 stent. The left circumflex itself has 70% stenosis after the takeoff of the OM1 branch. This is followed by an area of previously placed stent that has distal 90% in-stent restenosis. 4. Right coronary artery: The RCA has 95% ostial stenosis. This is followed by an area of patent stent. There appears to be LAD 70% stenosis in the distal RCA. The distal vessel was ill defined as the catheter was unable to sit at the ostium of the RCA stable. 5. Left ventricle: The aortic valve was not crossed. 6. Opening AO pressure 175/75 Since unable to stent RCA Cardiology advised outpatient cardiac catheterization. Discussed with Cardiology and agrees with discharging the patient with aspirin and Plavix. Patient needs to follow-up with Dr Claudio Gallo On the day of discharge, the patient was seen and examined. Vital signs were stable. Physical exam were stable and labs were reviewed at length. Discharge instructions, medications, and follow-up appointments were discussed with the patient at length and all day questions were answered. ER warnings were given. Status at Discharge Cognitive/behavioral status at discharge: Stable Time Spent with Patient Time attestation: Total time spent providing and/or coordinating discharge services: 45 minute Exam Narrative: General: well appearing, appears stated age. HEENT: normocephalic, atraumatic. Mucous membranes moist. EOMI, PERRLA, bilateral sclera anicteric, no conjunctival injection. Neck supple without JVD, lymphadenopathy, or bruit. Respiratory: clear to ascultation bilaterally. No rales/rhonic/wheezes. Cardiovascular: Regular rate and rhythm, normal S1-S2 upon ascultation. No murmurs, rubs, or clicks. PMI is nondisplaced, capillary refill less than 3 second. Abdomen: Soft, round, no pulsatile masses, nondistended and nontender. No rebound, no guarding. No CVA tenderness, no hepatosplenomegaly. Bowel sounds present to all four quadrants. No high pitch or tinkling sounds, resonant to percussion. Extremities: No cyanosis, clubbing, or edema present. Pulses are palpable 2/2. Active ROM to all four extremities. Neuro: Alert and orientated x 4. PERRLA. Cranial nerves 2-12 intact without focal deficit. Skin: Warm, dry, and intact, without rash, erythema, or lesion. Psych: pleasant, cooperative, normal speech, normal affect, no hallucinations, no dysarthia DS: Data Data Completed and Pending Labs on day of discharge: Labs from last 24 hours 09/25/24 09/25/24 09/24/24 07:23 04:39 19:44 APTT 57.0 H Activ Coag Time Kaolin POC Capillary Glucose 84 159 H 09/24/24 09/24/24 09/24/24 15:20 14:32 14:30 APTT Activ Coag Time Kaolin 147 H 170 H POC Capillary Glucose 93 09/24/24 13:23 APTT Activ Coag Time Kaolin 216 H POC Capillary Glucose Imaging Radiologist's impression: ITS Impressions Chest X-Ray 09/23/24 15:50 Impression: 1: No acute cardiopulmonary disease. Discharge Plan Discharge Attending physician on discharge: Isaias Elizabeth Consulting providers: Norman Venegas Discharging Clinician: Isaias Elizabeth Anticipated Discharge Date/Time: 09/25/24 10:41 Patient Disposition: Home Activity: as tolerated Diet: heart healthy Discharge Instructions: Please closely follow-up with the Cardiology Patient needs to follow-up with Dr Claudio Gallo Check blood pressure 1 to 2 times a day. Record and bring into your doctor for review. Call your doctor if your blood pressure is greater than 180/110 or less than 90/45. Walk with cane or other assist device. Take precautions to avoid falls. Rise slowly from a lying or sitting position. Pause before standing or walking. Contact your doctor or call 911 and come to the Emergency Room if you have any type of trauma, lightheadedness with standing or other worrisome symptoms. Avoid NSAIDs (ibuprofen, naproxen, Aleve). Tylenol is safe to take. Follow-up with your primary care provider in 1-2 weeks. Please call for appointment. Follow-up with Cardiology and Please call for an appointment. Thank you for using [facility] for your health care needs. Patient Instructions: Antibiotic Form, Clopidogrel (By mouth), Chest Pain (DC), After Radial Heart Catheterization (GEN) Patient Language: Irish Stand Alone Forms: General Discharge Information Follow-up/Referrals: Nuno Cavazos MD [Primary Care Provider] - Norman Venegas MD [Physician] - Discharge Medications: New clopidogrel 75 mg Tablet 75 mg PO QAM Qty: 90 3RF Continued mecobalamin (vitamin B12) 1,000 mcg tablet,disintegrating 1,000 mcg SUBLINGUAL DAILY aspirin 325 mg tablet 325 mg PO DAILY S Alpha -Lipoic acid 600 mg BYMOUTH DAILY Antiva BYMOUTH omega-3 fatty acids [Fish Oil Concentrate] 1,000 mg capsule 1,000 mg PO BID levothyroxine 100 mcg capsule 100 mcg PO DAILY Qty: 90 1RF nitroglycerin 0.4 mg tablet, sublingual 0.4 mg sublingual Q5M PRN (Reason: chest pain) Qty: 25 0RF Rx Instructions: do not exceed 3 doses per episode calcium polycarbophil [FiberCon] 625 mg tablet 625 mg PO DAILY insulin glargine [Basaglar KwikPen U-100 Insulin] 100 unit/mL (3 mL) insulin pen See Rx Instructions .ROUTE .COMPLEX Patient Comments: TAKES AT HS Rx Instructions: INJECT 20-25 UNITS SUBCUTANEOUSLY ONCE DAILY DIRECTED (DME) blood-glucose meter [OneTouch Ultra2 Meter] Kit See Rx Instructions .ROUTE .MEDSUPPLY Qty: 1 0RF Rx Instructions: check sugars twice a day cholecalciferol (vitamin D3) 50 mcg (2,000 unit) capsule 6,000 unit PO DAILY Synjardy XR 12.5-1,000 mg tablet, IR - ER, biphasic 24hr 1 tablet PO DAILY Qty: 90 1RF (DME) pen needle, diabetic [BD Ultra-Fine Mini Pen Needle] 31 gauge x 3/16 needle See Rx Instructions .ROUTE .COMPLEX Qty: 100 0RF Dose Instruction: USE TO INJECT INSULIN DAILY. Rx Instructions: USE TO INJECT INSULIN DAILY. rosuvastatin 5 mg tablet See Rx Instructions .ROUTE .COMPLEX Qty: 90 1RF Dose Instruction: Take 1 tablet by mouth once daily Rx Instructions: Take 1 tablet by mouth once daily (DME) OneTouch Ultra Test Strip See Rx Instructions .Route Qty: 50 0RF Rx Instructions: Tests up to 6 times daily folic acid 1 mg tablet 1 mg PO DAILY Qty: 90 1RF Curcumin 1320 mg daily 1,320 mg PO DAILY Rx Instructions: 1,320 mg orally; 1320 mg po daily tamsulosin 0.4 mg capsule See Rx Instructions .ROUTE .COMPLEX Qty: 180 3RF Dose Instruction: TAKE 2 CAPSULES BY MOUTH ONCE DAILY NIGHTLY Rx Instructions: TAKE 2 CAPSULES BY MOUTH ONCE DAILY NIGHTLY Held ibuprofen 200 mg capsule 400 mg PO BID PRN (Reason: Pain) Hold Instructions: Resume on 10/16/24. Please discuss with Cardiology/PCP before continuing Date of admission: 09/23/24 15:42 Primary Care Provider: Nuno Cavazos Admitting Provider: Isaias Elizabeth Attending physician on admission: Isaias Elizabeth Condition: Guarded Prognosis
[2024-09-25] MEDS: CLOPIDOGREL BISULFATE 300 MG TABLET 600 MG PO (10:59)
--- NOTE | 2024-09-25 11:09 | PM.PNCARD ---
Progress Note: A&P Assessment and Plan (1) Coronary atherosclerosis due to calcified coronary lesion: Code(s): I25.10 - Atherosclerotic heart disease of [place] coronary artery without angina pectoris; I25.84 - Coronary atherosclerosis due to calcified coronary lesion Status: Acute Plan 71-year-old man with coronary artery disease status post PCI, persistent atrial flutter, diabetes, hypothyroidism, and hyperlipidemia was referred by his primary care physician to be further evaluated in the emergency room for elevated troponin collected secondary to exertional dyspnea Non ST elevation [place] Coronary artery disease status post PCI -Troponins flat. -Attempted PCI on severe ostial RCA stenosis, however, unsuccessful. Will refer to Dr. Sabino Snyder at [facility] for outpatient complex PCI. -Continue Aspirin 325 mg daily -Continue rosuvastatin 5 mg every evening. Previously unable to tolerate higher doses. Will need outpatient evaluation for PCSK9 inhibitors versus inclisiran -Start Plavix in preparation for planned outpatient PCI. Persistent atrial flutter -He states he has known atrial flutter for many years now and unwilling to pay the cost of DOAC -We have recommended Warfarin, however, he is adamantly against consuming warfarin -He previously had discussions with his primary pipe coremaker and had accepted the elevated risk of stroke and would prefer to be continue on aspirin 325 mg PO Daily. Okay to discharge home today. Arranging referral for outpatient PCI. Patient's current primary pipe coremaker is at [facility], but already has an appointment to establish care with Dr. Raphael in October. Recommendations and plan discussed with Hospitalist. Subjective Date/time seen: 09/25/24 11:09 Interval history: Reason for visit: Coronary artery disease HPI: 71-year-old man with coronary artery disease status post PCI, persistent atrial flutter, diabetes, hypothyroidism, and hyperlipidemia was referred by his primary care physician to be further evaluated in the emergency room for elevated troponin collected secondary to exertional dyspnea. For the last 2 weeks, he has been experiencing shortness of breath with physical activity that he has previously able to complete without cardiopulmonary limitations. Prior to his previous VT, he had experienced chest discomfort which she did not experience this time around. Previously he had been able to mow his lawn as well as walk up hill however now he is experiencing significant shortness of breath with that degree of physical activity and is preventing him from completing his typical day-to-day activities. Date of service 6/6: Unsuccessful attempt at PCI yesterday. Feeling well today. No symptoms at rest. Patient tells me he only gets exertional shortness of breath, but able to go golfing twice a week and mowing the yard. Tele without arrhythmias. Review of Systems Cardiovascular: Cardiovascular: Reports as per HPI Exam Const: General: comfortable and no acute distress HENMT: Mouth: Yes moist mucous membranes Resp: Effort & Inspection: normal respiratory effort Cardio: Rate: regular rate Rhythm: regular rhythm Skin: General skin exam: normal color Neuro: Speech: normal speech Psych: Mental Status: mental status grossly normal Affect: normal affect Objective Data Vital Signs Vital Signs: Vital Signs - 24 hr 09/24/24 13:40 09/24/24 13:40 09/24/24 13:45 Temperature Pulse Rate 61 Pulse Rate [Bilateral Pedal (Dorsalis Pedis) Palpation] 61 57 L Pulse Rate [Bilateral Radial Palpation] 61 57 L Respiratory Rate 17 Blood Pressure 158/67 H Pulse Oximetry 97 Oxygen Delivery Room Air Fraction of Inspired Oxygen 09/24/24 13:45 09/24/24 14:00 09/24/24 14:00 Temperature Pulse Rate 55 L 58 L Pulse Rate [Bilateral Pedal (Dorsalis Pedis) Palpation] 57 L Pulse Rate [Bilateral Radial Palpation] 57 L Respiratory Rate 22 H 19 Blood Pressure 153/68 H 162/84 H Pulse Oximetry 98 96 Oxygen Delivery Room Air Room Air Fraction of Inspired Oxygen 09/24/24 14:15 09/24/24 14:15 09/24/24 14:30 Temperature Pulse Rate 57 L Pulse Rate [Bilateral Pedal (Dorsalis Pedis) Palpation] 63 71 Pulse Rate [Bilateral Radial Palpation] 63 71 Respiratory Rate 16 Blood Pressure 154/87 H Pulse Oximetry 98 Oxygen Delivery Room Air Fraction of Inspired Oxygen 09/24/24 14:30 09/24/24 14:45 09/24/24 14:45 Temperature Pulse Rate 71 62 Pulse Rate [Bilateral Pedal (Dorsalis Pedis) Palpation] 62 Pulse Rate [Bilateral Radial Palpation] 62 Respiratory Rate 15 15 Blood Pressure 159/65 H 136/67 Pulse Oximetry 96 94 Oxygen Delivery Room Air Room Air Fraction of Inspired Oxygen 09/24/24 15:00 09/24/24 15:00 09/24/24 15:15 Temperature Pulse Rate 65 Pulse Rate [Bilateral Pedal (Dorsalis Pedis) Palpation] 63 62 Pulse Rate [Bilateral Radial Palpation] 63 62 Respiratory Rate 17 Blood Pressure 148/59 H Pulse Oximetry 100 Oxygen Delivery Room Air Fraction of Inspired Oxygen 09/24/24 15:15 09/24/24 15:30 09/24/24 15:30 Temperature Pulse Rate 63 74 Pulse Rate [Bilateral Pedal (Dorsalis Pedis) Palpation] 68 Pulse Rate [Bilateral Radial Palpation] 68 Respiratory Rate 19 22 H Blood Pressure 146/76 H 141/111 H Pulse Oximetry 99 98 Oxygen Delivery Room Air Room Air Fraction of Inspired Oxygen 09/24/24 15:35 09/24/24 15:35 09/24/24 15:40 Temperature Pulse Rate 74 Pulse Rate [Bilateral Pedal (Dorsalis Pedis) Palpation] 62 64 Pulse Rate [Bilateral Radial Palpation] 68 64 Respiratory Rate 11 L Blood Pressure 160/66 H Pulse Oximetry 100 Oxygen Delivery Room Air Fraction of Inspired Oxygen 09/24/24 15:40 09/24/24 15:45 09/24/24 15:45 Temperature Pulse Rate 68 64 Pulse Rate [Bilateral Pedal (Dorsalis Pedis) Palpation] 64 Pulse Rate [Bilateral Radial Palpation] 64 Respiratory Rate 12 14 Blood Pressure 155/84 H 153/87 H Pulse Oximetry 100 98 Oxygen Delivery Room Air Room Air Fraction of Inspired Oxygen 09/24/24 15:50 09/24/24 15:50 09/24/24 15:55 Temperature Pulse Rate 64 63 Pulse Rate [Bilateral Pedal (Dorsalis Pedis) Palpation] 60 Pulse Rate [Bilateral Radial Palpation] 60 Respiratory Rate 14 13 Blood Pressure 160/80 H 164/87 H Pulse Oximetry 100 100 Oxygen Delivery Room Air Room Air Fraction of Inspired Oxygen 09/24/24 15:55 09/24/24 16:00 09/24/24 16:00 Temperature Pulse Rate 62 Pulse Rate [Bilateral Pedal (Dorsalis Pedis) Palpation] 60 71 Pulse Rate [Bilateral Radial Palpation] 64 71 Respiratory Rate 12 Blood Pressure 130/78 Pulse Oximetry 100 Oxygen Delivery Room Air Fraction of Inspired Oxygen 09/24/24 16:15 09/24/24 16:15 09/24/24 16:30 Temperature Pulse Rate 64 Pulse Rate [Bilateral Pedal (Dorsalis Pedis) Palpation] 64 70 Pulse Rate [Bilateral Radial Palpation] 64 70 Respiratory Rate 15 Blood Pressure 136/78 Pulse Oximetry 94 Oxygen Delivery Room Air Fraction of Inspired Oxygen 09/24/24 16:30 09/24/24 16:45 09/24/24 16:45 Temperature Pulse Rate 70 64 Pulse Rate [Bilateral Pedal (Dorsalis Pedis) Palpation] 60 Pulse Rate [Bilateral Radial Palpation] 60 Respiratory Rate 19 18 Blood Pressure 186/92 H 164/64 H Pulse Oximetry 98 98 Oxygen Delivery Room Air Room Air Fraction of Inspired Oxygen 09/24/24 17:00 09/24/24 17:00 09/24/24 17:05 Temperature Pulse Rate 77 77 Pulse Rate [Bilateral Pedal (Dorsalis Pedis) Palpation] 76 Pulse Rate [Bilateral Radial Palpation] 76 Respiratory Rate 19 19 Blood Pressure 104/55 L Pulse Oximetry 96 96 Oxygen Delivery Room Air Room Air Fraction of Inspired Oxygen 09/24/24 17:05 09/24/24 17:45 09/24/24 18:00 Temperature 36.4 C L Pulse Rate 86 100 66 Pulse Rate [Bilateral Pedal (Dorsalis Pedis) Palpation] Pulse Rate [Bilateral Radial Palpation] Respiratory Rate 20 Blood Pressure 160/70 H Pulse Oximetry 98 Oxygen Delivery Fraction of Inspired Oxygen 09/24/24 18:15 09/24/24 19:05 09/24/24 19:43 Temperature 36.4 C 36.8 C 36.4 C Pulse Rate 78 80 72 Pulse Rate [Bilateral Pedal (Dorsalis Pedis) Palpation] Pulse Rate [Bilateral Radial Palpation] Respiratory Rate 20 20 18 Blood Pressure 132/59 L 129/58 L 133/66 Pulse Oximetry 99 98 96 Oxygen Delivery Fraction of Inspired Oxygen 09/24/24 20:00 09/24/24 20:00 09/24/24 20:41 Temperature Pulse Rate 70 58 L 87 Pulse Rate [Bilateral Pedal (Dorsalis Pedis) Palpation] Pulse Rate [Bilateral Radial Palpation] Respiratory Rate 20 Blood Pressure Pulse Oximetry 95 Oxygen Delivery Room Air Room Air Fraction of Inspired Oxygen 21 09/24/24 22:00 09/24/24 23:39 09/24/24 23:42 Temperature 36.6 C Pulse Rate 100 68 57 L Pulse Rate [Bilateral Pedal (Dorsalis Pedis) Palpation] Pulse Rate [Bilateral Radial Palpation] Respiratory Rate 18 Blood Pressure 124/60 Pulse Oximetry 98 Oxygen Delivery Room Air Fraction of Inspired Oxygen 09/25/24 00:00 09/25/24 02:00 09/25/24 04:00 Temperature 36.5 C Pulse Rate 61 100 66 Pulse Rate [Bilateral Pedal (Dorsalis Pedis) Palpation] Pulse Rate [Bilateral Radial Palpation] Respiratory Rate 18 Blood Pressure 100/55 L Pulse Oximetry 98 Oxygen Delivery Fraction of Inspired Oxygen 09/25/24 04:00 09/25/24 04:00 09/25/24 05:40 Temperature Pulse Rate 57 L 100 80 Pulse Rate [Bilateral Pedal (Dorsalis Pedis) Palpation] Pulse Rate [Bilateral Radial Palpation] Respiratory Rate Blood Pressure Pulse Oximetry Oxygen Delivery Room Air Fraction of Inspired Oxygen 09/25/24 07:58 09/25/24 08:00 09/25/24 08:00 Temperature 36.6 C Pulse Rate 79 72 69 Pulse Rate [Bilateral Pedal (Dorsalis Pedis) Palpation] Pulse Rate [Bilateral Radial Palpation] Respiratory Rate 20 20 Blood Pressure 113/60 Pulse Oximetry 96 96 Oxygen Delivery Room Air Fraction of Inspired Oxygen 21 Intake/Output Intake/Output: Intake & Output 09/22/24 09/23/24 09/24/24 09/25/24 23:59 23:59 23:59 23:59 Intake Total 54.3 1814.1 442 Output Total 450 Balance 54.3 1364.1 442 Meds/Results Medications: Active Medications Generic Name Dose Route Start Last Admin Trade Name Freq PRN Reason Stop Dose Admin Acetaminophen 650 mg 09/23/24 16:16 Acetaminophen 325 Mg Tablet PO Q4H PRN Mild Pain (1-3) or Fever Aspirin 325 mg 09/24/24 09:00 09/25/24 07:58 Aspirin 325 Mg Tablet PO 325 mg DAILY RADHA Administration Clopidogrel Bisulfate 75 mg 09/26/24 09:00 Clopidogrel Bisulfate 75 Mg Tablet PO QAM [facility] Dextrose 12.5 gm 09/23/24 16:15 Dextrose 50% 25 Gm/50 Ml Syringe IV PUSH PRN PRN Hypoglycemia Protocol Glucagon 1 mg 09/23/24 16:15 Glucagon For Inj 1 Mg Vial IM PRN PRN Hypoglycemia Protocol Glucose 15 gm 09/23/24 16:15 Glucose Oral Gel 15 Gm Of Glucse In 37.5 Gm Tube PO PRN PRN Hypoglycemia Protocol Dextrose 1,000 mls @ 100 mls/hr 09/23/24 16:15 Dextrose 5% 1,000 Ml IVPB PRN PRN Hypoglycemia Protocol Insulin Aspart 2 - 5 units 09/25/24 06:30 09/25/24 07:35 Insulin Aspart (*Bkc) 100 Units/Ml SUB-Q Not Given ACHS [facility] Protocol Insulin Glargine 20 units 09/23/24 21:00 09/24/24 20:32 Insulin Glargine (*Bkc) 100 Units/Ml SUB-Q 20 units HS RADHA Administration Levothyroxine Sodium 100 mcg 09/24/24 06:30 09/25/24 06:33 Levothyroxine Sodium 100 Mcg Tablet PO 100 mcg DAILY@0630 RADHA Administration Nitroglycerin 0.4 mg 09/23/24 19:12 Nitroglycerin Sl 0.4 Mg Tablet SUBLINGUAL Q5M PRN chest pain Rosuvastatin Calcium 5 mg 09/24/24 09:00 09/25/24 07:58 Rosuvastatin 5 Mg Tablet BY MOUTH 5 mg DAILY RADHA Administration Tamsulosin HCl 0.8 mg 09/23/24 23:40 09/24/24 20:32 Tamsulosin Hcl 0.4 Mg Capsule BY MOUTH 0.8 mg QHS RADHA Administration Radiology Results: ITS Impressions Chest X-Ray 09/23/24 15:50 Impression: 1: No acute cardiopulmonary disease. Labs Labs: Laboratory Results - last 24 hr 09/24/24 09/24/24 09/24/24 13:23 14:30 14:32 APTT Activ Coag Time [place] 216 H 170 H POC Capillary Glucose 93 09/24/24 09/24/24 09/25/24 15:20 19:44 04:39 APTT 57.0 H Activ Coag Time [place] 147 H POC Capillary Glucose 159 H 09/25/24 07:23 APTT Activ Coag Time [place] POC Capillary Glucose 84
[2024-09-25 11:36] LABS: Glucose Point of Care 140 mg/dl (65-105)
== END 2024-09-25 14:33 | disposition home or self-care (01) | DRG 281 ==
LOC: ANHED 16:44 → ANHIMU 16:55
PROVIDERS: Emergency Medicine; Internal Medicine; Nurse Practitioner; Nurse Practitioner Gerontology; Admitting Provider General Practice; Emergency Provider Emergency Medicine; PCP Internal Medicine; Visit Provider General Practice
PROC: 4A023N7 Measurement of Cardiac Sampling and Pressure, Left Heart, Percutaneous Approach (ICD-10-PCS; CPT 93452; principal; 2024-09-24 11:00)
DX: I21.4 Non-ST elevation (NSTEMI) myocardial infarction (principal); I48.92 Unspecified atrial flutter; I25.10 Atherosclerotic heart disease of native coronary artery without angina pectoris; E03.9 Hypothyroidism, unspecified; E78.2 Mixed hyperlipidemia; F41.8 Other specified anxiety disorders; E11.22 Type 2 diabetes mellitus with diabetic chronic kidney disease; N18.2 Chronic kidney disease, stage 2 (mild); I65.29 Occlusion and stenosis of unspecified carotid artery; Z79.4 Long term (current) use of insulin; Z85.828 Personal history of other malignant neoplasm of skin; Z85.51 Personal history of malignant neoplasm of bladder; Z95.5 Presence of coronary angioplasty implant and graft
CPT/HCPCS: 36415; 71045; 80048; 80053; 82948; 83690; 84484; 85025; 85610; 85730; 93005; 93458; 96374; 99285; A9270; C1769; C1887; C1894; J1644; J1815; J2003; J2250; J2305; J3010; J7030; J7040

== ENCOUNTER 2024-12-23 15:00 | Outpatient (RCR) | payer MEDICARE, OTHER, SELFPAY | END 2025-02-25 14:34 | disposition home or self-care (01) | LOC: ANHCPREHAB 15:00 | PROVIDERS: PCP Internal Medicine; Visit Provider Specialist | DX: Z98.61 Coronary angioplasty status (principal) | CPT/HCPCS: 93798 ==